=== PATIENT | female | born 1975 | race African-American/Black ===

== ENCOUNTER 2019-02-25 11:15 | Emergency (ER) | payer SELFPAY ==
--- OUTSIDE RECORDS SUMMARY | 2019-02-25 11:22 | XMS REPORT ---
:1975 [facility] Address [address] [place] [address] Dr. Contreras [address] [place] [id number] Care Team Providers Name Role Phone Unavailable Unavailable Unavailable Problems This patient has no known problems. Allergies, Adverse Reactions, Alerts This patient has no known allergies or adverse reactions. Medications This patient has no known medications.
--- OUTSIDE RECORDS SUMMARY | 2019-02-25 11:23 | XMS REPORT | Summary of Care ---
:1975 Author Organization [facility] Address [address] [place] [id number] Care Team Providers Name Role Phone Leeanne Rodriguez Primary Care Provider Reason for Referral (Routine) Status Reason Specialty Diagnoses / Referred By Referred To Procedures Contact Contact New Request PN-NEUROLOGY Diagnoses Seizures Roberts, Chilvana Procedures Discharge Follow-Up: Specialty Service PN-NEUROLOGY ; 2 Months MD Junaid [address] [place] [address] MRI/CAT Scan (GRACE) Status Reason Specialty Diagnoses / Referred By Referred To Procedures Contact Contact New Request Diagnostic Diagnoses Seizures Roberts, Chilvana Radiology Procedures MR BRAIN W WO SONIYA Quiroga MD [address] [place] [address] (Routine) Status Reason Specialty Diagnoses / Referred By Referred To Procedures Contact Contact New Request EEG Diagnoses Seizures Roberts, Chilvana V, Procedures Electroencephalogram (EEG) - Duration of test: 20-[address] [place] [phone] MRI/CAT Scan (GRACE) Status Reason Specialty Diagnoses / Referred By Referred To Procedures Contact Contact New Request Diagnostic Diagnoses Seizures Roberts, Chilvana Radiology Procedures MR BRAIN W WO CONTRAST MD Junaid [address] [place] [address] (Routine) Status Reason Specialty Diagnoses / Referred By Referred To Procedures Contact Contact New Request EEG Diagnoses Seizures Armando Monica V, Procedures Electroencephalogram (EEG) - Duration of test: 20-[address] [place] [phone] Reason for Visit Auth/Cert Status Reason Specialty Diagnoses / Procedures Referred By Contact Referred To Contact Surgery Diagnoses seizure Jessie 11[address] [place] [address] Encounter Details Date Type Department Care Team Description 02/06/2019 - Hospital Encounter Ortho/ Trauma (JESSIE Monica Roberts V, Seizures 02/07/2019 11A) [address] [address] [place], [place] [phone] Allergies Active Allergy Reactions Severity Noted Date Comments Shrimp Unknown - See comments 02/06/2019 documented as of this encounter (statuses as of 02/07/2019) Medications Medication Sig Dispensed Refills Start Date End Date Status losartan 100 mg tablet TK 1 T PO ONCE 1 11/18/2018 Active D. methylPREDNISolone Take 21 tablets 1 Each 0 11/21/2018 Active (MEDROL, ARIA,) 4 mg by mouth tabletsIndications: SEE-INSTRUCTIONS Right foot pain, Acute . follow package idiopathic gout of right directions foot levETIRAcetam 750 mg Take 1 tablet by 60 tablet 5 02/06/2019 Active tabletIndications: mouth 2 (two) Seizures times daily. foLIC acid 1 mg Take 1 tablet by 30 tablet 5 02/06/2019 Active tabletIndications: mouth daily. Seizures documented as of this encounter (statuses as of 02/07/2019) Active Problems Problem Noted Date Seizures 02/06/2019 Seizure 02/06/2019 Well woman exam 10/17/2018 Encounter for contraceptive management, unspecified type 10/17/2018 Elevated blood pressure reading without diagnosis of hypertension 10/17/2018 Breast lump 10/17/2018 Screening examination for STD (sexually transmitted disease) 03/04/2015 Class 1 obesity with body mass index (BMI) of 30.0 to 30.9 in adult, 2014 unspecified obesity type, unspecified whether serious comorbidity present Overview: ICD10 Diagnosis Term Carburizer Utility History of bilateral tubal ligation 03/04/2015 documented as of this encounter (statuses as of 02/07/2019) Resolved Problems Problem Noted Date Resolved Date General counseling and advice for contraceptive management 03/04/20152018 Overview: ICD10 Diagnosis Term Carburizer Utility Irregular menstrual cycle 03/04/2015 10/17/2018 Overweight 03/04/2015 10/17/2018 Overview: ICD10 Diagnosis Term Carburizer Utility Prehypertension 03/04/2015 10/17/2018 documented as of this encounter (statuses as of 02/07/2019) Social History Tobacco Use Types Packs/Day Years Used Date Never Smoker Smokeless Tobacco: Never Used Tobacco Cessation: Counseling Given: No Alcohol Use Drinks/Week oz/Week Comments No Sex Assigned at Date Recorded Not on file Job Start Date Occupation Industry Not on file Not on file Not on file Travel History Travel Start Travel End No recent travel history available. documented as of this encounter Last Filed Vital Signs Vital Sign Reading Time Taken Comments Blood Pressure 124/65 02/07/2019 11:27 AM CDT Pulse 88 02/07/2019 11:27 AM CDT Temperature 36.9 C (98.5 F) 02/07/2019 11:27 AM CDT Respiratory Rate 18 02/07/2019 11:27 AM CDT Oxygen Saturation 96% 02/07/2019 11:27 AM CDT Inhaled Oxygen Concentration - - Weight 79.8 kg (176 lb) 02/06/2019 4:36 AM CDT Height 160 cm (5' 2.99") 02/06/2019 4:36 AM CDT Body Mass Index 31.18 02/06/2019 4:36 AM CDT documented in this encounter Discharge Summaries Lizeth Arana MD - 02/07/2019 12:20 PM CDT GENERAL NEUROLOGY DISCHARGE SUMMARY Date of Service: 02/07/2019 12:19 ADMIT DATE: 02/07/2019 DISCHARGE DATE: 02/07/2019 12:19 ATTENDING MD: ARMANDO ESQUIVEL, [facility] RESIDENT MD: Sumit Stanley PCP: Leeanne Rodriguez CHIEF COMPLAINT Seizures FINAL DIAGNOSIS Seizures, GTCS, off AEDs Cocaine Abuse HOSPITAL COURSE Daniela Medellin is a 43 year old female right handed with Hx Of Seizures who presented to [facility] after an episode of seizure. Patient stated that the first seizure was 3 years ago. Had about 6-7 in one year, was on Dilantin. Later when she did not have any seizures, her doctor took her off seizure medication. Therefore patient has been off AED for the past 2 years and she did not have any episodes. Seizure with no Aura. A/w loss of consciousness & post ictal confusion. No triggering Factors. FHx with seizures in sisters. Denies febrile seizures, head trauma w/ LOC, or SASH FINISHER infections -none reported. H/o epilepsy in sister. Pt was admitted to the floor started on Keppra 750 BID. UDS positive for cocaine. EEG done was abnormal due to independent bitemporal slowing, suggestive of independent bitemporal dysfunction However no epileptiform discharges. MRI wwo contrast was completed. Pt was advised of taking Seizure precautions and was discharged on keppra 750 BID with a follow up to neurology clinics. PLAN / ITEMS FOR FOLLOW UP PROVIDER: 1. Evaluate for Seizures and Adjust AEDs accordingly 2. Check Keppra levels PHYSICAL EXAM ON DISCHARGE: Neurologic Exam Mental Status Oriented to person, place, and time. Speech: speech is normal Cranial Nerves Cranial nerves II through XII intact. Motor Exam Muscle bulk: normal Overall muscle tone: normal Strength Strength 5/5 throughout. Sensory Exam Light touch normal. Vibration normal. Proprioception normal. Gait, Coordination, and Reflexes Gait Gait: normal Coordination Romberg: negative Finger to nose coordination: normal Heel to chen coordination: normal Tremor Resting tremor: absent Intention tremor: absent Reflexes Reflexes 2+ except as noted. Right plantar: normal Left plantar: normal PROCEDURES: EEG PERTINENT LABORATORY/IMAGING FINDINGS: MRI WWO contrast completed DISCHARGE MEDICATIONS: Current Discharge Medication List START taking these medications Details foLIC acid (FOLATE) 1 mg Take 1 mg by mouth daily. Qty: 30 tablet, Refills: 5 Start date: 02/06/2019 Associated Diagnoses: Seizures levETIRAcetam (KEPPRA) 750 mg Take 750 mg by mouth 2 (two) times daily. Qty: 60 tablet, Refills: 5 Start date: 02/06/2019 Associated Diagnoses: Seizures CONTINUE these medications which have NOT CHANGED Details losartan 100 mg tablet TK 1 T PO ONCE D. Refills: 1 methylPREDNISolone (MEDROL DOSE-ARIA) 84 mg Take 84 mg by mouth SEE- INSTRUCTIONS. follow package directions Qty: 1 Each, Refills: 0 Associated Diagnoses: Right foot pain; Acute idiopathic gout of right foot DISCHARGE DISPOSITION: Activity: as tolerated Discharged :Discharged: Home Condition at discharge: Fair PT/OT Follow-Up: not needed FOLLOW-UP APPOINTMENTS: Follow up with [facility] Neurology Clinics in 2 months Discharge Orders Regular Diet; Texture: Regular. Texture Regular. Diabetic: No Discharge Condition - Discharge Condition: FAIR Discharge Activity Discharge Activity: As Tolerated Discharge Follow-Up: Specialty Service PN-NEUROLOGY ; 2 Months Specialty: PN-NEUROLOGY [19] Patient's Preferred Location: Unknown Discharge Disposition: Home, ([facility]HR) When (Patients with risk for unplanned readmission score over 16 or those noted as Hospital Dependent should follow up within 7 days with PCP or primary DX specialist): 2 Months Risk of Unplanned Readmission:( Score greater than 16 indicates high risk) 6 VTE Propylaxis- Was ordered during hospitalization Discharge Instructions Order Comments: - take Keppra 750 Twice daily - take folate once daily - follow up with neurology in 2 months - keep a Diary of any seizure like activity that you may experience and bring it [facility]. Associated attestation - Monica Roberts MD - 02/07/2019 12:26 PM CDTKeppra 750mg bid [place] laws Folic acid 4 mg daily Seizure precautions, SUDEP, [place] driving laws Avoid recreational drugs MOA and adverse reactions discussed Compliance addressed EMU outpatient I personally examined the patient on 02/07/[address] Arana's note . I actively participated in the decision-making process. Please see the resident's note for additional details. Monica Roberts MD documented in this encounter Progress Notes Dary Zavala LMSW - 02/06/2019 1:02 PM CDTCare Management Social Functional Assessment Patient Name: Daniela Medellin Age: [age] year old Sex: female Previous admit date: N/A Current diagnosis and co-morbidities: seizure Readmission Questions: Was patient discharged from any acute care hospital within the last 30 days: No Social Functional Assessment: Primary language spoken/preferred: [place] Mental Status: Alert & Oriented to Person,Place & Time Information given by: Self Patient's support system: Spouse Name and number of support system: Dell Howard- [phone] Primary Muck Operator: Self MPOA: No Living Arrangement: Home: single story Address of living arrangement : [address] [place] [address] Persons living in home: Self;Spouse;Child Names & numbers of persons living in home: -Dell and 3 kids Barriers to returning home: None Baseline functional status- ambulation: Independent Functional status-baseline personal care: Independent Baseline functional status- driving: Independent Baseline functional status- grocery shopping: Independent Functional status-baseline housekeeping: Independent Functional status-baseline meal prep: Independent Current functional status same as prior: Yes Do you have a PCP?: Yes Name of PCP: [facility] Lee[facility] Agency: No Provider Services: No DME Company: No Equipment: None Hemodialysis: No Community resources utilized: SSA/SSI/Medicaid Funding Resources: Self Pay(Pack Medicaid termed on 01/08/19. Patient is pending medicaid) Prescription coverage plan: Self Pay Pharmacy where meds are filled: Other Other pharmacy: [id number] [phone] (Phone) Anticipated services prior to disharge: Continue Medical Eval;EEG Expected mode of discharge transportation: Same as support system Additional info required for discharge planning: Pending medical evaluation Recommended discharge plan: Home. Per patient request patients motherMarsha, removed as a contact. Any issues or concerns with obtaining/affording your medications at home: no. Patient denies any issues affording or obtaining medications. Are you or your support system able to picker packer medications at discharge: yes. Describe: Patient or her spouse will picker packer. SFA Complete: Social Functional Assessment complete: Yes Alcohol Use Screening (AUDIT-C) How often do you have a drink containing alcohol?: Never SCORE: 0 Role of Care Management explained. Dary Zavala LMSW Health And Social Care Teacher Care Management-Cutter Wet Machine (Not for Patient use) Lizeth Pickering MD - 02/06/2019 6:49 AM CDT GENERAL NEUROLOGY PROGRESS NOTE DATE OF SERVICE: 02/06/19 8:00am Day of Hospitalization: 0 CHIEF COMPLAINT: Seizure 24-HOUR EVENTS: -admission to neuro floor -started on Keppra 750mg BID -EEG completed -MRI w/ & w/o contrast: Pending SUBJECTIVE: This morning patient reports poor sleep overnight due to pain. She reports knot on her head, back pain, and front leg pain that is 9/10, tender to touch, and not helped by ibuprofen. Attributes to fallin the bathroom w/ seizure. According to family she was not on ground long before she was found (1min) as they heard the thud. She is also endorsing weakness with standing and moving. Reports tolerating medications well. Pt says she has been holding in urine longer than usual so that she can wait for assistance to go the restroom, however denies dysuria. Pt would like help addressing pain and weakness. No other complaints this morning and no seizure spells overnight. OBJECTIVE: PHYSICAL EXAM Vitals: 02/06/19 1500 02/06/19 2003 02/06/19 2329 02/07/19 0831 BP: 123/75 132/64 119/61 121/66 Pulse: 93 76 72 69 Resp: 16 16 16 20 Temp: 36.6 C (97.9 F) 36.7 C (98.1 F) 36.4 C (97.6 F) 36.7 C ( 98.1 F) TempSrc: Oral Oral Oral Oral SpO2: 100% 100% 98% 96% Weight: Height: General: Alert and oriented x 4 (time, person, place and situation); no apparent distress. Mental Status: Consciousness, attention, concentration: normal, Stays focused and on task while being questioned. Speech/ Language: intact to comprehension, fluency, repetition and naming. Fund of knowledge: is congruent with level of education. Remote and recent memory: normal, can recall recent and distant memories Cranial Nerves: I. Not tested. II. PERRL. FOV full to confrontation. Discs visualized, no papilledema. III. IV., . Extraocular movements intact without nystagmus. V. Normal sensation in V1-3 distributions. VII. No facial droop noted. VIII. Hearing intact. IX., X. Palatal elevation and gag response present symmetrically. XI. Normal Strength of sternocleidomastoid and trapezius muscles bilaterally. XII. Tongue in midline. Motor: Tone: normal Bulk: normal STRENGTH Right Left Deltoid 5 5 Biceps 5- 5- Triceps 5- 5- Wrist extensors 5 5 Interossei 5 5 Hip flexors 5 5 Knee flexors (hamstring) 5 5 Knee extensors (quadriceps) 4+ 4+ Ankle dorsiflexors 5 5 Ankle plantar flexors 5 5 Tenderness during strength exam. DTR's: Right Left Bicep 2+ 2+ Triceps 2+ 2+ Brachioradialis 2+ 2+ Patella 2+ 2+ Achilles 2+ 2+ Pathologic reflexes and signs: Schroeder: absent Babinski: absent Jaw Jerk: absent Cerebellar: Nystagmus: neg, FTN: nl, HTS:nl, Tremors: neg Sensory: LT: intact, temperature: intact, PP: intact, proprioception: intact, Vibration: intact Gait: normal HEENT: pupils equal, round, reactive to light; extraocular movements intact; oropharynx clear; moistmucous membranes Lungs: clear to auscultation bilaterally Cardio: S1, S2 normal Extremities: no cyanosis, clubbing or edema Neck: supple, no carotid bruit, no JVD Abdomen: soft; non-tender; non-distended; normoactive bowel sounds heard MEDICATIONS Current Facility-Administered Medications Medication Dose Route Frequency Last Rate Last Dose KCL (KLOR-CON M20) tablet 20 mEq 20 mEq Oral DAILY 20 mEq at 02/07/19 0830 potassium chloride 20 mEq/100 mL (KCL) 20 mEq/100 mL RTU IVPB 20 mEq 20 mEq IV Piggyback ONCE acetaminophen (TYLENOL) tablet 650 mg 650 mg Oral Q6HPRN 650 mg at 1540 docusate (COLACE) capsule 100 mg 100 mg Oral QDAILYPRN 100 mg at 0831 heparin injection 5,000 Units 5,000 Units Subcutaneous Q12H 5,000 Units at 02/07/19 0830 ibuprofen (IBU) tablet 600 mg 600 mg Oral Q6HPRN 600 mg at 02/07/19 0830 levETIRAcetam (KEPPRA) tablet 750 mg 750 mg Oral BID 750 mg at 02/07/19 0830 pantoprazole (PROTONIX) EC tablet 40 mg 40 mg Oral DAILY 40 mg at 0830 LABS Recent Results (from the past 24 hour(s)) CBC WITH DIFFERENTIAL Collection Time: 02/06/19 9:08 AM Result Value Ref Range WBC 8.81 4.30 - 11.10 10*3/L RBC 3.87 (L) 3.93 - 5.25 10*6/L HGB 11.1 (L) 11.6 - 15.0 g/dL HCT 34.9 (L) 35.7 - 45.2 % MCV 90.2 80.6 - 95.5 fL MCH 28.7 25.9 - 32.8 pg MCHC 31.8 31.6 - 35.1 g/dL RDW-SD 42.2 39.0 - 49.9 fL RDW-CV 12.8 12.0 - 15.5 % PLT 203 166 - 358 10*3/L MPV 10.0 9.5 - 12.9 fL NRBC/100 WBC 0.0 0.0 - 10.0 /100 WBCs NRBC x10^3 <0.01 10*3/L GRAN MAT (NEUT) % 62.6 % IMM GRAN % 0.20 % LYMPH % 26.9 % MONO % 9.4 % EOS % 0.6 % BASO % 0.3 % GRAN MAT x10^3(ANC) 5.51 1.88 - 7.09 10*3/uL IMM GRAN x10^3 <0.03 0.00 - 0.06 10*3/uL LYMPH x10^3 2.37 1.32 - 3.29 10*3/uL MONO x10^3 0.83 0.33 - 0.92 10*3/uL EOS x10^3 0.05 0.03 - 0.39 10*3/uL BASO x10^3 0.03 0.01 - 0.07 10*3/uL Basic Metabolic Panel (Na, K, Cl, CO2, Glucose, BUN, Creatinine, Ca) Collection Time: 02/06/19 9:09 AM Result Value Ref Range NA 138 135 - 145 mmol/L K 3.2 (L) 3.5 - 5.0 mmol/L CL 107 98 - 108 mmol/L CO2 TOTAL 25 23 - 31 mmol/L AGAP 6 2 - 16 BUN 6 (L) 7 - 23 mg/dL GLUCOSE 79 70 - 110 mg/dL CREATININE 0.55 0.50 - 1.04 mg/dL CALCIUM 8.0 (L) 8.6 - 10.6 mg/dL eGFR Calculation (Non-) 121.2 mL/min/1.73m2 eGFR Calculation () 146.9 mL/min/1.73m2 Magnesium Serum Collection Time: 02/06/19 9:09 AM Result Value Ref Range MAGNESIUM 1.9 1.7 - 2.4 mg/dL Phosphorus Serum Collection Time: 02/06/19 9:09 AM Result Value Ref Range PHOSPHORUS 3.2 2.5 - 5.0 mg/dL Creatine Kinase (CK) Collection Time: 02/06/19 9:09 AM Result Value Ref Range CK 79 33 - 194 U/L Basic Metabolic Panel (Na, K, Cl, CO2, Glucose, BUN, Creatinine, Ca) Collection Time: 02/06/19 11:40 AM Result Value Ref Range NA 140 135 - 145 mmol/L K 3.2 (L) 3.5 - 5.0 mmol/L CL 109 (H) 98 - 108 mmol/L CO2 TOTAL 25 23 - 31 mmol/L AGAP 6 2 - 16 BUN 6 (L) 7 - 23 mg/dL GLUCOSE 79 70 - 110 mg/dL CREATININE 0.53 0.50 - 1.04 mg/dL CALCIUM 8.1 (L) 8.6 - 10.6 mg/dL eGFR Calculation (Non-) 126.5 mL/min/1.73m2 eGFR Calculation () 153.3 mL/min/1.73m2 Magnesium Serum Collection Time: 02/06/19 11:40 AM Result Value Ref Range MAGNESIUM 1.9 1.7 - 2.4 mg/dL Phosphorus Serum Collection Time: 02/06/19 11:40 AM Result Value Ref Range PHOSPHORUS 3.1 2.5 - 5.0 mg/dL Creatine Kinase (CK) Collection Time: 02/06/19 11:40 AM Result Value Ref Range CK 89 33 - 194 U/L Urinalysis Collection Time: 02/06/19 11:40 AM Result Value Ref Range APPEARANCE Hazy (A) Clear COLOR Yellow Yellow PH 6.0 4.8 - 8.0 SP GRAVITY 1.011 1.003 - 1.030 GLU U QUAL Normal Normal BLOOD 2+ (A) Negative KETONES 5 mg/dL (A) Negative PROTEIN Negative Negative UROBILIN Normal Normal BILIRUBIN Negative Negative NITRITE Negative Negative LEUK EARL 25/uL (A) Negative RBC/HPF 10 (H) 0 - 3 HPF WBC/HPF 5 0 - 5 HPF BACTERIA Few (A) Negative MUCOUS Slight (A) Negative LPF SQ EPITH <1 <=2 HPF Urine Drug (Imuunoassay) - Comprehensive Drug Screen ([place] Only) Collection Time: 02/06/19 11:41 AM Result Value Ref Range AMPHET Negative Negative DISHA U Negative Negative BENZO U Negative Negative Cocaine Metabolite Presumptive Positive (A) Negative METHADONE Negative Negative OPIATES Negative Negative PCP Negative Negative THC Negative Negative RADIOLOGY 02/06/19 EEG: This EEG is abnormal due to independent bitemporal slowing, suggestive of independent bitemporal dysfunction. No electrographic seizures or epileptiform abnormalities are seen. The absence of epileptiform abnormalities in one EEG does not necessarily rule out a diagnosis of epilepsy or the potential for epileptic seizures, however. The diagnostic sensitivity can be enhanced by a repeat study, which would be appropriate if clinically indicated. MRI 02/06/2019 Within confines of motion degradation, no acute intracranial abnormality. No definite structural abnormality identified to account for patient's seizure.The cerebellar tonsils protrude 5 mm below the level of foramen magnum, clinically correlate ASSESSMENT AND PLAN Daniela Medellin is a 43 year old female with prior hx of seizures (off maintenance medication) admitted to neurology service after witnessed tonic clonic seizure in home and fall on bathroom floor: 1. Seizures 2. Proximal LE muscle weakness 3. Generalized pain 4. Hypokalemia 5. Drug abuse (positive UDS cocaine) PLAN: -c/w depakote 750mg BID -talk to patient about seizure precautions -EEG w/o epileptiform waves at this time, shows bitemporal slowing -pending MRI read -replenish K+ po, may help with muscular symptoms as well -encourage activity as tolerated -c/w Tylenol and ibuprofen for pain associated with fall -start folic acid 1mg po qd - GI Prophylaxis: pantoprazole - DVT Prophylaxis: heparin - Code status: full The case was discussed with Dr. Glenn Roberts Neurology Faculty. Lizeht Arana MD PGY2 Neurology [phone] HOSPITAL COURSE: Daniela Medellin is a 43 year old femalerighthanded with Hx Of Seizures who presented to [facility] after an episode of seizure. Patient stated that the first seizure was3 years ago. Had about 6-7 in oneyear, was on Dilantin. Later when she did not have any seizures, her doctor took her off seizure medication. The patient had been off AED for the past 2 years and she did not have any episodes.Seizure with no Aura. A/w loss of consciousness & post ictal confusion. No triggering Factors. FHx with seizures in sisters and in her daughter. Denies febrile seizures, head trauma w/ LOC, or SASH FINISHER infections-none reported. Patient was driving on a regular basis before seizure episode. Pt was admitted to the floor started on Keppra 750 BID. EEG done was abnormal due to independent bitemporal slowing, suggestive of independent bitemporal dysfunction , however no epileptiform discharges. MRI w/o contrast was completed. Associated attestation - Monica Roberts MD - 02/07/2019 12:29 PM CDTMRI Brain- pending I personally examined the patient on 02/06/[address] Arana's note . I actively participated in the decision-making process. Please see the resident's note for additional details. Monica Roberts MD documented in this encounter Plan of Treatment Name Type Priority Associated Diagnoses Date/Time [facility] ONLY - URINE DRUG LAB Routine 02/06/2019 11:41 AM CDT (LCMSMS) - KAEL PANEL Name Type Priority Associated Diagnoses Order Schedule Urinalysis LAB Routine ONCE for 1 Occurrences starting 02/06/2019 until 02/06/2019 [facility] ONLY - URINE DRUG LAB Routine ONCE for 1 Occurrences (LCMSMS) - KAEL PANEL starting 02/06/2019 until 02/06/2019, 1 completed KEPPRA (LEVETIRACETAM) LAB Routine ONCE for 1 Occurrences starting 02/07/2019 until 02/07/2019 Health Maintenance Due Date Last Done Comments DTaP,Tdap,and Td Vaccines 02/25/1995 (1 - Tdap) PAP SMEAR 09/08/2014 09/08/2009, 08/17/2008, 09/22/2004, Additional history exists INFLUENZA VACCINE (#1) 2019 MAMMOGRAM 10/25/2019 10/24/2018 PNEUMOCOCCAL 0-64 YEARS Aged Out No longer eligible COMBINED SERIES based on patient's age to complete this topic documented as of this encounter Procedures Procedure Name Priority Date/Time Associated Comments Diagnosis MR BRAIN W WO CONTRAST GRACE 02/07/2019 2:07 Seizures Results for this AM CDT procedure are in the results section. [facility]AL[facility]/CLC ONLY - URINE DRUG Routine 02/06/2019 11:41 Results for this (IMMUNOASSAY) - AM CDT procedure are in COMPREHENSIVE DRUG SCREEN the results section. URINALYSIS Routine 02/06/2019 11:40 Results for this AM CDT procedure are in the results section. BASIC METABOLIC PANEL (NA, Routine 02/06/2019 11:40 Results for this K, CL, CO2, GLUCOSE, BUN, AM CDT procedure are in CREATININE, CA) the results section. MAGNESIUM Routine 02/06/2019 11:40 Results for this AM CDT procedure are in the results section. CREATINE KINASE Routine 02/06/2019 11:40 Results for this AM CDT procedure are in the results section. PHOSPHORUS Routine 02/06/2019 11:40 Results for this AM CDT procedure are in the results section. BASIC METABOLIC PANEL (NA, Routine 02/06/2019 9:09 Results for this K, CL, CO2, GLUCOSE, BUN, AM CDT procedure are in CREATININE, CA) the results section. MAGNESIUM Routine 02/06/2019 9:09 Results for this AM CDT procedure are in the results section. CREATINE KINASE Routine 02/06/2019 9:09 Results for this AM CDT procedure are in the results section. PHOSPHORUS Routine 02/06/2019 9:09 Results for this AM CDT procedure are in the results section. CBC WITH DIFFERENTIAL Routine 02/06/2019 9:08 Results for this AM CDT procedure are in the results section. CBC WITH DIFF Routine 02/06/2019 9:08 Results for this AM CDT procedure are in the results section. ELECTROENCEPHALOGRAM Routine 02/06/2019 Seizures documented in this encounter Results MR BRAIN W WO CONTRAST (02/07/2019 2:07 AM CDT) Specimen Impressions Performed At Impression: PACS/VR/DOSE Within confines of motion degradation, no acute intracranial abnormality. No definite structural abnormality identified to account for patient's seizure. The cerebellar tonsils protrude 5 mm below the level of foramen magnum, clinically correlate. Narrative Performed At * * * * * * * * ORIGINAL REPORT * * * * * * * * PACS/VR/DOSE EXAMINATION: MR BRAIN W WO CONTRAST HISTORY: Seizure, new, abn neuro exam, nontraumatic COMPARISON: None. Technique: Seizure protocol MRI of the brain was performed prior to and after intravenous contrast administration. Quantitative volumetry of the brain was performed using NeuroQuant ([facility], [place], [place]) software package. The NeuroQuant analysis was based on a sagittal 3D volumetric MPRAGE pulse sequence. Sequence-checking was performed to ensure appropriate high-resolution and contrast image parameters. Correction for field/gradient inhomogeneities, removal of the overlying calvaria, alignment to the probabilistic atlas of stereotypical anatomy and segmented volumetry of predetermined anatomic areas derived from multiple subjects of multiple age groups was performed. Two automated reports were generated. Contrast: 16 mL of Dotarem intravenous. Findings: Images degraded by motion artifacts. There is normal appearance of the brain parenchyma. There is no abnormal enhancement. No intracranial hemorrhage or mass. The ventricles, sulci and cisterns are normal in size and symmetric. No acute infarct. Partially empty sella. The inferior aspect of the cerebellar tonsils protrude 5 mm below the level of the foramen magnum. The Hippocampal volume report demonstrates: Left Hippocampal volume: 3.23 Right Hippocampal volume: 3.43 Asymmetry Index: -6.0 The values listed above were with 2 SD of the mean. General morphometry report was also reviewed and no gross outliers were identified. No definite signal alteration or volume loss noted of the hippocampi. The calvarium is normal. The orbits are unremarkable. The paranasal sinuses are essentially clear. Procedure Note [facility], Radiant Results Inft User - 02/07/2019 7:53 AM CDT * * * * * * * * ORIGINAL REPORT * * * * * * * * EXAMINATION: MR BRAIN W WO CONTRAST HISTORY: Seizure, new, abn neuro exam, nontraumatic COMPARISON: None. Technique: Seizure protocol MRI of the brain was performed prior to and after intravenous contrast administration. Quantitative volumetry of the brain was performed using NeuroQuant ([facility], [place], [place]) software package. The NeuroQuant analysis was based on a sagittal 3D volumetric MPRAGE pulse sequence. Sequence-checking was performed to ensure appropriate high-resolution and contrast image parameters. Correction for field/gradient inhomogeneities, removal of the overlying calvaria, alignment to the probabilistic atlas of stereotypical anatomy and segmented volumetry of predetermined anatomic areas derived from multiple subjects of multiple age groups was performed. Two automated reports were generated. Contrast: 16 mL of Dotarem intravenous. Findings: Images degraded by motion artifacts. There is normal appearance of the brain parenchyma. There is no abnormal enhancement. No intracranial hemorrhage or mass. The ventricles, sulci and cisterns are normal in size and symmetric. No acute infarct. Partially empty sella. The inferior aspect of the cerebellar tonsils protrude 5 mm below the level of the foramen magnum. The Hippocampal volume report demonstrates: Left Hippocampal volume: 3.23 Right Hippocampal volume: 3.43 Asymmetry Index: -6.0 The values listed above were with 2 SD of the mean. General morphometry report was also reviewed and no gross outliers were identified. No definite signal alteration or volume loss noted of the hippocampi. The calvarium is normal. The orbits are unremarkable. The paranasal sinuses are essentially clear. IMPRESSION Impression: Within confines of motion degradation, no acute intracranial abnormality. No definite structural abnormality identified to account for patient's seizure. The cerebellar tonsils protrude 5 mm below the level of foramen magnum, clinically correlate. Performing Organization Address City/State/Zipcode Phone Number PACS/VR/DOSE Urine Drug (Imuunoassay) - Comprehensive Drug Screen ([place] Only) (2018 11:41 AM CDT) AMPHET Negative Negative [facility] DISHA U Negative Negative [facility] BENZO U Negative Negative [facility] Cocaine Metabolite Presumptive Negative [facility] Positive (A) SERVICES METHADONE Negative Negative [facility] OPIATES Negative Negative [facility] PCP Negative Negative [facility] THC Negative Negative [facility] Specimen Urine - URINE, CLEAN CATCH Narrative Performed At Urine Drug Cutoff Ranges [facility] Cocaine: 150 ng/mL Benzodiazepines: 200 ng/mL Methadone: 300 ng/mL Amphetamine: 1,000 ng/mL Opiates: 300 ng/mL Cannabinoids:50 ng/mL Phencyclidine: 25 ng/mL Barbiturates:200 ng/mL The results are to be used only for medical (i.e., treatment) purposes. Unconfirmed screening results must not be used for non-medical purposes (e.g., employment testing, legal testing). Performing Organization Address [facility] Phone Number [facility] CLIA: [id number], [address] [place] [address] [id number] [facility] Urinalysis (02/06/2019 11:40 AM CDT) APPEARANCE Hazy (A) Clear [facility] COLOR Yellow Yellow [facility] PH 6.0 4.8 - 8.0 [facility] SP GRAVITY 1.011 1.003 - 1.030 [facility] GLU U QUAL Normal Normal [facility] BLOOD 2+ (A) Negative [facility] KETONES 5 mg/dL (A) Negative [facility] PROTEIN Negative Negative [facility] UROBILIN Normal Normal [facility] BILIRUBIN Negative Negative [facility] NITRITE Negative Negative [facility] LEUK EARL 25/uL (A) Negative [facility] RBC/HPF 10 (H) 0 - 3 HPF [facility] WBC/HPF 5 0 - 5 HPF [facility] BACTERIA Few (A) Negative [facility] MUCOUS Slight (A) Negative LPF [facility] SQ EPITH <1 <=2 HPF [facility] Specimen Urine - URINE, CLEAN CATCH Performing Organization Address [facility] Phone Number [facility] CLIA: [id number], [address] [place] [id number] [phone] [facility] Creatine Kinase (CK) (02/06/2019 11:40 AM CDT) CK 89 33 - 194 U/L [facility] Specimen Blood - ARM, LEFT Performing Organization Address [facility] Phone Number [facility] CLIA: [id number], [address] [place] [address] [phone] [facility] Phosphorus Serum (02/06/2019 11:40 AM CDT) PHOSPHORUS 3.1 2.5 - 5.0 mg/dL [facility] Specimen Blood - ARM, LEFT Performing Organization Address [facility] Phone Number [facility] CLIA: [id number], [address] [place], [place] [address] [facility] Magnesium Serum (02/06/2019 11:40 AM CDT) MAGNESIUM 1.9 1.7 - 2.4 mg/dL [facility] Specimen Blood - ARM, LEFT Performing Organization Address City/[facility]/Zipcode Phone Number [facility] CLIA: [id number], [address] [place] [address] [phone] [facility] Basic Metabolic Panel (Na, K, Cl, CO2, Glucose, BUN, Creatinine, Ca) (2018 11:40 AM CDT) NA 140 135 - 145 [facility] mmol/L SERVICES K 3.2 (L) 3.5 - 5.0 [facility] mmol/L SERVICES CL 109 (H) 98 - 108 mmol/L [facility] CO2 TOTAL 25 23 - 31 mmol/L [facility] AGAP 6 2 - 16 [facility] BUN 6 (L) 7 - 23 mg/dL [facility] GLUCOSE 79 70 - 110 mg/dL [facility] CREATININE 0.53 0.50 - 1.04 [facility] mg/dL SERVICES CALCIUM 8.1 (L) 8.6 - 10.6 [facility] mg/dL SERVICES eGFR Calculation 126.5 mL/min/1.73m2 [facility] (Non- SERVICES [place]) eGFR Calculation 153.3 mL/min/1.73m2 [facility] () SERVICES Specimen Blood - ARM, LEFT Narrative Performed At Association of Glomerular Filtration Rate (GFR) and Staging [facility] of Kidney Disease* + + + + | GFR (mL/min/1.73 m2)| With Kidney Damage|Without Kidney Damage + + + + |>90|Stage one| Normal + + + + |60-89|Stage two| Decreased GFR + + + + |30-59|Stage three| Stage three + + + + |15-29|Stage four | Stage four + + + + |<15 (or dialysis)|Stage five | Stage five + + + + *Each stage assumes the associated GFR level has been in effect for at least three months.Stages 1 to 5, with or without kidney disease, indicate chronic kidney disease. Notes: Determination of stages one and two (with eGFR >59mL/min/1.73 m2) requires estimation of kidney damage for at least three months as defined by structural or functional abnormalities of the kidney, manifested by either: Pathological abnormalities or Markers of kidney damage (including abnormalities in the composition of the blood or urine or abnormalities in imaging tests). Performing Organization Address City/[facility] Phone Number [facility] CLIA: [id number], [address] [place] [address] [facility] Creatine Kinase (CK) (02/06/2019 9:09 AM CDT) CK 79 33 - 194 U/L [facility] Specimen Blood - ARM, LEFT Performing Organization Address [facility] Phone Number [facility] CLIA: [id number], [address] [place] [address] [facility] Phosphorus Serum (02/06/2019 9:09 AM CDT) PHOSPHORUS 3.2 2.5 - 5.0 mg/dL [facility] Specimen Blood - ARM, LEFT Performing Organization Address [facility] Phone Number [facility] CLIA: [id number], [address] [place] [address] [facility] Magnesium Serum (02/06/2019 9:09 AM CDT) MAGNESIUM 1.9 1.7 - 2.4 mg/dL [facility] Specimen Blood - ARM, LEFT Performing Organization Address [facility] Phone Number [facility] CLIA: [id number], [address] [place] [address] [facility] Basic Metabolic Panel (Na, K, Cl, CO2, Glucose, BUN, Creatinine, Ca) (2018 9:09 AM CDT) NA 138 135 - 145 [facility] mmol/L SERVICES K 3.2 (L) 3.5 - 5.0 [facility] mmol/L SERVICES CL 107 98 - 108 mmol/L [facility] CO2 TOTAL 25 23 - 31 mmol/L [facility] AGAP 6 2 - 16 [facility] BUN 6 (L) 7 - 23 mg/dL [facility] GLUCOSE 79 70 - 110 mg/dL [facility] CREATININE 0.55 0.50 - 1.04 [facility] mg/dL SERVICES CALCIUM 8.0 (L) 8.6 - 10.6 [facility] mg/dL SERVICES eGFR Calculation 121.2 mL/min/1.73m2 [facility] (Non- SERVICES [place]) eGFR Calculation 146.9 mL/min/1.73m2 [facility] () SERVICES Specimen Blood - ARM, LEFT Narrative Performed At Association of Glomerular Filtration Rate (GFR) and Staging [facility] of Kidney Disease* + + + + | GFR (mL/min/1.73 m2)| With Kidney Damage|Without Kidney Damage + + + + |>90|Stage one| Normal + + + + |60-89|Stage two| Decreased GFR + + + + |30-59|Stage three| Stage three + + + + |15-29|Stage four | Stage four + + + + |<15 (or dialysis)|Stage five | Stage five + + + + *Each stage assumes the associated GFR level has been in effect for at least three months.Stages 1 to 5, with or without kidney disease, indicate chronic kidney disease. Notes: Determination of stages one and two (with eGFR >59mL/min/1.73 m2) requires estimation of kidney damage for at least three months as defined by structural or functional abnormalities of the kidney, manifested by either: Pathological abnormalities or Markers of kidney damage (including abnormalities in the composition of the blood or urine or abnormalities in imaging tests). Performing Organization Address City/State/Zipcode Phone Number [facility] CLIA: [id number], [address] [place] [address] [facility] CBC WITH DIFFERENTIAL (02/06/2019 9:08 AM CDT) WBC 8.81 4.30 - 11.10 [facility] 10*3/L SERVICES RBC 3.87 (L) 3.93 - 5.25 [facility] 10*6/L SERVICES HGB 11.1 (L) 11.6 - 15.0 [facility] g/dL SERVICES HCT 34.9 (L) 35.7 - 45.2 % [facility] MCV 90.2 80.6 - 95.5 fL [facility] MCH 28.7 25.9 - 32.8 pg [facility] MCHC 31.8 31.6 - 35.1 [facility] g/dL SERVICES RDW-SD 42.2 39.0 - 49.9 fL [facility] SERVICES RDW-CV 12.8 12.0 - 15.5 % [facility] PLT 203 166 - 358 [facility] 10*3/L SERVICES MPV 10.0 9.5 - 12.9 fL [facility] SERVICES NRBC/100 WBC 0.0 0.0 - 10.0 /100 [facility] WBCs SERVICES NRBC x10^3 <0.01 10*3/L [facility] SERVICES GRAN MAT (NEUT) % 62.6 % [facility] IMM GRAN % 0.20 % [facility] LYMPH % 26.9 % [facility] MONO % 9.4 % [facility] EOS % 0.6 % [facility] BASO % 0.3 % [facility] GRAN MAT x10^3(ANC) 5.51 1.88 - 7.09 [facility] 10*3/uL SERVICES IMM GRAN x10^3 <0.03 0.00 - 0.06 [facility] 10*3/uL SERVICES LYMPH x10^3 2.37 1.32 - 3.29 [facility] 10*3/uL SERVICES MONO x10^3 0.83 0.33 - 0.92 [facility] 10*3/uL SERVICES EOS x10^3 0.05 0.03 - 0.39 [facility] 10*3/uL SERVICES BASO x10^3 0.03 0.01 - 0.07 [facility] 10*3/uL SERVICES Specimen Blood - ARM, LEFT Performing Organization Address City/State/Zipcode Phone Number [facility] CLIA: [id number], [address] [place] [address] [facility] Electroencephalogram (EEG) - Duration of test: 20-60 mins (02/06/2019) Narrative Performed At Date and Time of Procedure: 02/06/2019, 9:27:48-9:51:43 REPORT TECHNICAL SUMMARY: The EEG was recorded digitally. Electrodes were applied using the International 10/20 System of electrode placement. Eye movements, respiratory excursions and rhythm strip ECG were monitored on separate channels of the ongoing EEG recording. The occipital dominant rhythm consists of moderate amplitude 9-10 Hz activity. More anteriorly, similar as well as faster frequencies are present, including low amplitude 18-22 Hz activities in the anterior leads. There is independent bitemporal slowing in the 4-7 Hz range intermittently. Drowsiness and sleep do not reveal any abnormalities. Photic stimulation does not elicit any abnormalities. Hyperventilation is not employed as activation technique. No electrographic seizures or epileptiform abnormalities are seen. IMPRESSION: This EEG is abnormal due to independent bitemporal slowing, suggestive of independent bitemporal dysfunction. No electrographic seizures or epileptiform abnormalities are seen. The absence of epileptiform abnormalities in one EEG does not necessarily rule out a diagnosis of epilepsy or the potential for epileptic seizures, however. The diagnostic sensitivity can be enhanced by a repeat study, which would be appropriate if clinically indicated. SOCORRO SAHU MD Date of interpretation: 02/06/2019 documented in this encounter Visit Diagnoses Diagnosis Seizures - Primary Other convulsions documented in this encounter Administered Medications Medication Order MAR Action Action Date Dose Rate Site acetaminophen (TYLENOL) tablet Given 02/06/2019 3:40 PM CDT 650 mg 650 mg 650 mg, Oral, Q6HPRN, Starting Sun02/06/19 at 0453, Until Discontinued, Routine, Pain (scale 4-6), Temp > 38.5 C Given 02/06/2019 9:04 AM CDT 650 mg docusate (COLACE) capsule 100 mg Given 02/07/2019 8:31 AM CDT 100 mg 100 mg, Oral, QDAILYPRN, Starting Sun02/06/19 at 0453, Until Discontinued, Routine, Constipation heparin injection 5,000 Units Given 02/07/2019 8:30 AM CDT 5,000 Units Abdomen-SC 5,000 Units, Subcutaneous, Q12H, First dose on Sun02/06/19 at 0800, Until Discontinued, Routine Given 02/06/2019 8:06 PM CDT 5,000 Units Abdomen Given 02/06/2019 9:05 AM CDT 5,000 Units Abdomen-SC ibuprofen (IBU) tablet 600 mg Given 02/07/2019 8:30 AM CDT 600 mg 600 mg, Oral, Q6HPRN, Starting Sun02/06/19 at 0852, Until Discontinued, Routine, Pain scale - 7-10 Given 02/07/2019 2:30 AM CDT 600 mg Given 02/06/2019 8:05 PM CDT 600 mg KCL (KLOR-CON M20) tablet 20 mEq Given 02/07/2019 8:30 AM CDT 20 mEq 20 mEq, Oral, DAILY, First dose on Sun02/07/19 at 0900, Until Discontinued, Routine levETIRAcetam (KEPPRA) tablet 750 mg Given 02/07/2019 8:30 AM CDT 750 mg 750 mg, Oral, BID, First dose on Sun02/06/19 at 0930, Until Discontinued, Routine Given 02/06/2019 8:05 PM CDT 750 mg Given 02/06/2019 11:32 AM CDT 750 mg pantoprazole (PROTONIX) EC tablet 40 mg Given 02/07/2019 8:30 AM CDT 40 mg 40 mg, Oral, DAILY, First dose on Sun02/06/19 at 0900, Until Discontinued, Routine Given 02/06/2019 9:04 AM CDT 40 mg Medication Order MAR Action Action Date Dose Rate Site gadoterate meglumine (DOTAREM-20 Given 02/07/2019 2:00 AM CDT 16 mL mL) injection 15.96 mL 15.96 mL (0.2 mL/kg 79.8 kg), Intravenous, ONCE, 1 dose, Sun02/07/19 at 0200, Routine documented in this encounter Insurance Payer Benefit Plan / Subscriber ID Effective Phone Address Type Group Dates MEDICAID MEDICAID PENDING 2019-[address] [place]ending [place] [address] documented as of this encounter Advance Directives Name Relationship Healthcare Agent Relationship Communication Dell Howard Other Second alternate healthcare agent
--- OUTSIDE RECORDS SUMMARY | 2019-02-25 11:23 | XMS REPORT | Summary of Care ---
:[address] [facility] - Health Address [address] [place] [address] Care Team Providers Name Role Phone Joanne Rodrigueznewton GUZMAN Primary Care Provider Encounter Details Date Type Department Care Team Description 02/20/[address] [facility] Doctor Unassigned, No [address] [facility] Name [place] [id number] [address] [place] [address] Allergies Active Allergy Reactions Severity Noted Date Comments Shrimp Unknown - See comments 02/06/2019 documented as of this encounter (statuses as of 02/20/2019) Medications Medication Sig Dispensed Refills Start Date [...] as of this encounter (statuses as of 02/20/2019) Active Problems Problem Noted Date Seizures 02/06/2019 [...] serious comorbidity present Overview: ICD10 Diagnosis Term Emergency Room Nurse Utility History of bilateral tubal ligation 03/04/2015 documented as of this encounter (statuses as of 02/20/2019) Resolved Problems Problem Noted Date Resolved Date General counseling and advice for contraceptive management 03/04/20152018 Overview: ICD10 Diagnosis Term Emergency Room Nurse Utility Irregular menstrual cycle 03/04/2015 10/17/2018 Overweight 03/04/2015 10/17/2018 Overview: ICD10 Diagnosis Term Emergency Room Nurse Utility Prehypertension 03/04/2015 10/17/2018 documented as of this encounter (statuses as of 02/20/2019) Social History Tobacco Use Types Packs/Day Years Used Date Never Smoker Smokeless Tobacco: Never Used Alcohol Use Drinks/Week oz/Week Comments No Sex Assigned at Date Recorded Not on file Job Start Date Occupation Industry Not on file Not on file Not on file Travel History Travel Start Travel End No recent travel history available. documented as of this encounter Last Filed Vital Signs Not on filedocumented in this encounter Plan of Treatment Health Maintenance Due Date Last Done Comments DTaP,Tdap,and Td Vaccines 02/25/1995 (1 - Tdap) PAP SMEAR 09/08/2014 09/08/2009, 08/17/2008, 09/22/2004, Additional history exists INFLUENZA VACCINE (#1) 2019 MAMMOGRAM 10/25/2019 10/24/2018 PNEUMOCOCCAL 0-64 YEARS Aged Out No longer eligible COMBINED SERIES based on patient's age to complete this topic documented as of this encounter Procedures Procedure Name Priority Date/Time Associated Diagnosis Comments EXTERNAL PROVIDER Routine 02/20/2019 12:01 AM CDT RECORDS documented in this encounter Results Not on filedocumented in this encounter Insurance Payer Benefit Plan / Subscriber ID Effective Dates Phone Address Type Group TMHP MEDICAID OF xxxxxxxxx 2019-Present [phone] [place] [address] [place] [address] documented as of this encounter Advance Directives Name Relationship Healthcare Agent Relationship Communication Dell Howard Other Second alternate healthcare agent
--- NOTE | 2019-02-25 13:09 | EDPHYS ---
Physician Documentation [facility] Name: Daniela Medellin Age: 44 yrs Sex: Female : 1975 Arrival Date: 02/25/2019 Time: 11:18 Bed 20 Private MD: Unknown, Unknown ED Physician Bairon Albert HPI: 02/25 13:00 This 44 yrs old Black Female presents to ER via Ambulatory with complaints of Numbness kristen Of Hand. 13:00 The patient or guardian reports decreased range of motion, pain. The complaints affect kristen the DIP of left little finger, PIP of left little finger, MCP of left little finger, DIP of left ring finger, PIP of left ring finger and MCP of left ring finger. Context: The problem was sustained at an unknown location. Modifying factors: The symptoms are alleviated by holding still, the symptoms are aggravated by movement. Associated signs and symptoms: The patient has no apparent associated signs or symptoms. Severity of symptoms: At their worst the symptoms were mild. The patient has not experienced similar symptoms in the past. EARLY CHILDHOOD: 11:22 LMP N/A - Depo-provera hb Historical: - Allergies: 11:22 No Known Allergies; hb - Home Meds: 11:22 Keppra Oral [Active]; amlodipine oral [Active]; Folic Acid Oral [Active]; hb - PMHx: 11:22 Seizures; Hypertension; hb - PSHx: 11:22 Appendectomy; hb - Immunization history:: Adult Immunizations up to date. - Social history:: Smoking status: Patient/guardian denies using tobacco. - Ebola Screening: : No symptoms or risks identified at this time. - Family history:: not pertinent. ROS: 13:00 Constitutional: Negative for fever, chills, and weight loss, Eyes: Negative for injury, kristen pain, redness, and discharge, ENT: Negative for injury, pain, and discharge, Neck: Negative for injury, pain, and swelling, Cardiovascular: Negative for chest pain, palpitations, and edema, Respiratory: Negative for shortness of breath, cough, wheezing, and pleuritic chest pain, Abdomen/GI: Negative for abdominal pain, nausea, vomiting, diarrhea, and constipation, Back: Negative for injury and pain, : Negative for injury, bleeding, discharge, and swelling, Skin: Negative for injury, rash, and discoloration, Neuro: Negative for headache, weakness, numbness, tingling, and seizure, Psych: Negative for depression, anxiety, suicide ideation, homicidal ideation, and hallucinations, Allergy/Immunology: Negative for hives, rash, and allergies, Endocrine: Negative for neck swelling, polydipsia, polyuria, polyphagia, and marked weight changes, Hematologic/Lymphatic: Negative for swollen nodes, abnormal bleeding, and unusual bruising. 13:00 MS/extremity: Positive for Exam: 13:00 Constitutional: This is a well developed, well nourished patient who is awake, alert, kristen and in no acute distress. Head/Face: Normocephalic, atraumatic. Eyes: Pupils equal round and reactive to light, extra-ocular motions intact. Lids and lashes normal. Conjunctiva and sclera are non-icteric and not injected. Cornea within normal limits. Periorbital areas with no swelling, redness, or edema. ENT: Nares patent. No nasal discharge, no septal abnormalities noted. Tympanic membranes are normal and external auditory canals are clear. Oropharynx with no redness, swelling, or masses, exudates, or evidence of obstruction, uvula midline. Mucous membranes moist. Neck: Trachea midline, no thyromegaly or masses palpated, and no cervical lymphadenopathy. Supple, full range of motion without nuchal rigidity, or vertebral point tenderness. No Meningismus. Chest/axilla: Normal chest wall appearance and motion. Nontender with no deformity. No lesions are appreciated. Cardiovascular: Regular rate and rhythm with a normal S1 and S2. No gallops, murmurs, or rubs. Normal PMI, no JVD. No pulse deficits. Respiratory: Lungs have equal breath sounds bilaterally, clear to auscultation and percussion. No rales, rhonchi or wheezes noted. No increased work of breathing, no retractions or nasal flaring. Abdomen/GI: Soft, non-tender, with normal bowel sounds. No distension or tympany. No guarding or rebound. No evidence of tenderness throughout. Back: No spinal tenderness. No costovertebral tenderness. Full range of motion. Skin: Warm, dry with normal turgor. Normal color with no rashes, no lesions, and no evidence of cellulitis. Neuro: Awake and alert, GCS 15, oriented to person, place, time, and situation. Cranial nerves II-XII grossly intact. Motor strength 5/5 in all extremities. Sensory grossly intact. Cerebellar exam normal. Normal gait. Psych: Awake, alert, with orientation to person, place and time. Behavior, mood, and affect are within normal limits. 13:00 Musculoskeletal/extremity: Extremities: decreased ROM, pain, ROM: full active range of motion, full passive range of motion, Pulses: are normal with no appreciated deficits, Compartment Syndrome exam of affected extremity: is normal. DVT Exam: No signs of deep vein thrombosis. no swelling, no tenderness, negative Homans' sign noted on exam, no appreciated bluish discoloration, no erythema, no increased warmth, pain. Vital Signs: 11:22 BP 150 / 95; Pulse 71; Resp 16; Temp 97.7; Pulse Ox 100% on R/A; Weight 79.38 kg; bp Height 5 ft. 3 in. (160.02 cm); Pain 10/10; 13:30 BP 147 / 89; Pulse 77; Resp 17; Temp 97.7; Pulse Ox 100% ; bp 11:22 Body Mass Index 31.00 (79.38 kg, 160.02 cm) bp MDM: 11:33 Patient medically screened. [facility] 02/25 13:06 Order name: Sling; Complete Time: 13:30 [facility] Administered Medications: 13:15 Drug: predniSONE 40 mg Route: PO; bp 13:30 Follow up: Response: No adverse reaction bp Disposition: 02/25/19 13:08 Discharged to Home. Impression: Radiculopathy. - Condition is Stable. - Discharge Instructions: Radicular Pain. - Prescriptions for gabapentin 100 mg Oral capsule - take 3 capsule by ORAL route 3 times per day; 90 capsule. Tylenol- Codeine #3 300-30 mg Oral Tablet - take 2 tablets by ORAL route every 6 hours As needed; 24 tablet. Medrol (Iraj) 4 mg Oral Tablets, Dose Pack - take 1 tablet by ORAL route as directed - follow package instructions; 1 packet. Motrin IB 200 mg Oral Tablet - take 2 tablet by ORAL route every 6 hours As needed as needed with food; 30 tablet. - Work release form, Medication Reconciliation Form, Thank You Letter, Antibiotic Education, Prescription Opioid Use form. - Follow up: Private Physician; When: 2 - 3 days; Reason: Recheck today's complaints, Continuance of care, Re-evaluation by your physician. Follow up: Brian Pappas MD; When: 2 - 3 days; Reason: Recheck today's complaints, Re-evaluation by your physician. - Problem is new. - Symptoms have improved. Signatures: Bairon Albert MD MD cha Baxter, Heather, RN RN Dell Lopez RN RN bp Corrections: (The following items were deleted from the chart) 13:32 13:08 02/25/2019 13:08 Discharged to Home. Impression: Radiculopathy. Condition is bp Stable. Forms are Medication Reconciliation Form, Thank You Letter, Antibiotic Education, Prescription Opioid Use. Follow up: Private Physician; When: 2 - 3 days; Reason: Recheck today's complaints, Continuance of care, Re-evaluation by your physician. Follow up: Brian Pappas; When: 2 - 3 days; Reason: Recheck today's complaints, Re-evaluation by your physician. Problem is new. Symptoms have improved. kristen
--- NOTE | 2019-02-25 13:09 | ER ---
Nurse's Notes [facility] Name: Daniela Medellin Age: 44 yrs Sex: Female : 1975 Arrival Date: 02/25/2019 Time: 11:18 Bed 20 Private MD: Unknown, Unknown Diagnosis: Radiculopathy Presentation: 02/25 11:20 Presenting complaint: Right hand numbness and tingling x 3 weeks. Transition of care: hb patient was not received from another setting of care. Onset of symptoms was February 04, 2019. Risk Assessment: Do you want to hurt yourself or someone else? Patient reports no desire to harm self or others. Initial Sepsis Screen: Does the patient meet any 2 criteria? No. Patient's initial sepsis screen is negative. Does the patient have a suspected source of infection? No. Patient's initial sepsis screen is negative. Care prior to arrival: None. 11:20 Method Of Arrival: Ambulatory 11:20 Acuity: NORA 4 hb Triage Assessment: 11:20 General: Appears in no apparent distress. comfortable, Behavior is cooperative, bp appropriate for age, anxious. Pain: Denies pain. EENT: No deficits noted. Neuro: Reports numbness in right hand. Cardiovascular: No deficits noted. Respiratory: No deficits noted. GI: No signs and/or symptoms were reported involving the gastrointestinal system. : No signs and/or symptoms were reported regarding the genitourinary system. Derm: No deficits noted. Musculoskeletal: No deficits noted. 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 - Social history:: Smoking status: Patient/guardian denies using tobacco. - Ebola Screening: : No symptoms or risks identified at this time. - Family history:: not pertinent. Screenin:08 Abuse screen: Denies threats or abuse. Denies injuries from another. Nutritional bp screening: No deficits noted. Tuberculosis screening: No symptoms or risk factors identified. Fall Risk None identified. Assessment: 11:25 General: SEE TRIAGE NOTE. bp 13:30 Reassessment: PT D/C HOME AMBULATORY WITH FAMILY, DX WITH RADICULOPATHY. bp Vital Signs: 11:22 BP 150 / 95; Pulse 71; Resp 16; Temp 97.7; Pulse Ox 100% on R/A; Weight 79.38 kg; bp Height 5 ft. 3 in. (160.02 cm); Pain 10/10; 13:30 BP 147 / 89; Pulse 77; Resp 17; Temp 97.7; Pulse Ox 100% ; bp 11:22 Body Mass Index 31.00 (79.38 kg, 160.02 cm) bp ED Course: 11:18 Patient arrived in ED. ag5 11:18 Evans Moore MD is Private Physician. ag5 11:19 Unknown, Unknown is Private Physician. ag5 11:21 Triage completed. hb 11:22 Arm band placed on. hb 11:27 Dell Lopez, RN is Primary Nurse. bp 11:33 Bairon Albert MD is Attending Physician. kristen 12:08 Patient has correct armband on for positive identification. Allergy band placed. Bed in bp low position. Call light in reach. Side rails up X2. 13:06 Brian Pappas MD is Referral Physician. kristen 13:11 Sling applied to right arm. bp 13:32 No provider procedures requiring assistance completed. Patient did not have IV access bp during this emergency room visit. Administered Medications: 13:15 Drug: predniSONE 40 mg Route: PO; bp 13:30 Follow up: Response: No adverse reaction bp Outcome: 13:08 Discharge ordered by . kristen 13:32 Discharged to home ambulatory, with family. bp 13:32 Condition: stable 13:32 Discharge instructions given to patient, Instructed on discharge instructions, follow up and referral plans. medication usage, Demonstrated understanding of instructions, follow-up care, medications, Prescriptions given X 4. 13:32 Patient left the ED. bp Signatures: Bairon Albert MD MD cha Baxter, Heather, RN RN hb Dell Lopez, DARIUS RN Oscar Suggs ag5 Corrections: (The following items were deleted from the chart) 13:31 11:22 BP 150 / 95; Pulse 71bpm; Resp 1bpm; Pulse Ox 100% RA; Temp 97.7F; 79.38 kg; bp Height 5 ft. 3 in.; BMI: 31.0; Pain 10/10; hb
[2019-02-25] MEDS ORDERED: predniSONE 20 MG TAB ONE (13:21)
[2019-02-25 14:05] VITALS: TEMP 97.7; O2SAT 100
[2019-02-25 14:06] VITALS: BP 147/89
== END 2019-02-25 13:32 | disposition home or self-care (01) ==
LOC: ER 11:15
DX: M54.10 Radiculopathy, site unspecified (principal); I10 Essential (primary) hypertension; R56.9 Unspecified convulsions
CPT/HCPCS: 99283; J7512

== ENCOUNTER 2019-08-14 15:54 | Emergency (ER) | payer MEDICAID, SELFPAY ==
--- OUTSIDE RECORDS SUMMARY | 2019-08-14 15:59 | XMS REPORT | Summary of Care ---
:1975 Author Organization [facility] Address [address] [place] [id number] Care Team Providers Name Role Phone Leeanne Rodriguez Primary Care Provider Encounter Details Date Type Department Care Team Description 07/07/2019 Letter (Out) [facility], 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 History of bilateral tubal ligation 03/04/2015 documented as of this encounter (statuses as of 07/07/2019) Resolved Problems Problem Noted Date Resolved Date General counseling and advice for contraceptive management 03/04/20152018 Overview: ICD10 Diagnosis 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 Irregular menstrual cycle 03/04/2015 10/17/2018 Overweight 03/04/2015 10/17/2018 Overview: ICD10 Diagnosis 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 Prehypertension 03/04/2015 10/17/2018 documented as of this encounter (statuses as of 07/07/2019) Social History Tobacco Use Types Packs/Day Years [...] Date Last Done Comments DTaP,Tdap,and Td Vaccines 02/25/1987 (1 - Tdap) PAP SMEAR 09/08/2014 09/08/2009, 08/17/2008, 09/22/2004, Additional history exists INFLUENZA VACCINE (#1) 2019 Breast Cancer Screening 10/25/2019 10/24/2018 (MAMMOGRAM) PNEUMOCOCCAL 0-64 YEARS Aged Out No longer eligible COMBINED SERIES based on patient's age to complete this topic documented as of this encounter Results Not on filedocumented in this encounter Insurance Payer Benefit Plan / Subscriber ID Effective Dates Phone Address Type Group [employer] MEDICAID OF xxxxxxxxx 2019-Present [phone] [place] [address] [place] [address] documented as of this encounter Advance Directives Name Relationship Healthcare Agent Relationship Communication Dell Howard Other Second alternate healthcare agent
--- OUTSIDE RECORDS SUMMARY | 2019-08-14 15:59 | XMS REPORT ---
:1975 Author [facility] Address [address] [place] [address] Dr. Contreras [address] [place] [id number] Care Team Providers Name Role Phone Unavailable Unavailable Unavailable Problems This patient has no known problems. Allergies, Adverse Reactions, Alerts This patient has no known allergies or adverse reactions. Medications This patient has no known medications.
[2019-08-14] MEDS ORDERED: LIDOCAINE 1% MPF 2 ML AMPULE ONE (17:39)
[2019-08-14] MEDS ORDERED: CEFTRIAXONE 1000 MG/VIAL ONE (17:39)
[2019-08-14] MEDS ORDERED: HYDROCODONE/APAP 5/325 MG TAB ONE (17:41)
--- NOTE | 2019-08-14 17:41 | EDPHYS ---
Physician Documentation [facility] Name: Daniela Medellin Age: 44 yrs Sex: Female : 1975 Arrival Date: 08/14/2019 Time: 15:58 Bed 20 Private MD: ED Physician Erlin Covington HPI: 08/13 17:37 This 44 yrs old Black Female presents to ER via Ambulatory with complaints of Flu jmm Symptoms. 17:37 The patient or guardian reports sore throat. Onset: The symptoms/episode began/occurred jmm gradually, 1 day(s) ago. Modifying factors: The symptoms are alleviated by nothing. the symptoms are aggravated by nothing. Associated signs and symptoms: Pertinent positives: earache, sore throat. This is a 44 year old female with a history of htn that presents to the ED with complaints of sore throat, chills, earache beginning yesterday. Denies known infectious exposure. Denies recent travel. . 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 - Social history:: Smoking status: Patient denies any tobacco usage or history of. ROS: 17:37 Abdomen/GI: Negative for abdominal pain, nausea, vomiting, diarrhea, and constipation, jmm Back: Negative for injury and pain. 17:37 Constitutional: Positive for body aches. 17:37 ENT: Positive for ear pain, sore throat. 17:37 Respiratory: Negative for cough. 17:37 All other systems are negative. Exam: 17:37 Constitutional: This is a well developed, well nourished patient who is awake, alert, jmm and in no acute distress. Head/Face: atraumatic. Eyes: EOMI, no conjunctival erythema appreciated ENT: Moist Mucus Membranes Neck: Trachea midline, Supple Chest/axilla: Normal chest wall appearance and motion. Cardiovascular: Regular rate and rhythm. No edema appreciated Respiratory: Normal respirations, no respiratory distress appreciated Abdomen/GI: Non distended, soft Back: Normal ROM Skin: General appearance color normal MS/ Extremity: Moves all extremities, no obvious deformities appreciated, no edema noted to the lower extremities Neuro: Awake and alert, normal gait Psych: Behavior is normal, Mood is normal, Patient is cooperative and pleasant 17:37 ENT: TM's: erythema, that is moderate, on the left, Posterior pharynx: erythema, that is moderate. Vital Signs: 16:10 BP 143 / 85; Pulse 89; Resp 15; Temp 98.6(TE); Pulse Ox 99% on R/A; Weight 83.01 kg; ss Height 5 ft. 3 in. (160.02 cm); Pain 10/10; 16:10 Body Mass Index 32.42 (83.01 kg, 160.02 cm) ss MDM: 17:21 Patient medically screened. [facility] 17:37 Data reviewed: vital signs, nurses notes. Counseling: I had a detailed discussion with dany the patient and/or guardian regarding: the historical points, exam findings, and any diagnostic results supporting the discharge/admit diagnosis, lab results, the need for outpatient follow up, to return to the emergency department if symptoms worsen or persist or if there are any questions or concerns that arise at home. ED course: Patient is alert and non toxic in appearance in the ED. No signs of resp distress appreciated. Patient is advised to follow up with pcp and otherwise given strict return precautions. patient understood and agrees with the plan of care. . 03 16:14 Order name: Flu; Complete Time: 16:59 ss 08/13 16:14 Order name: Strep; Complete Time: 16:59 ss 08/13 16:47 Order name: Throat Culture EDMS Administered Medications: 17:38 Drug: [place] 5 mg-325 mg 1 tabs Route: PO; em 18:16 Follow up: Response: No adverse reaction; Marked relief of symptoms; Pain is decreased em 17:40 Drug: Rocephin (cefTRIAXone) 1 grams Route: IM; Site: right gluteus; em 18:16 Follow up: Response: No adverse reaction em Disposition: 08/14 07:04 Co-signature as Attending Physician, Erlin Covington MD I agree with the assessment and kdr plan of care. Disposition: 08/14/19 17:41 Discharged to Home. Impression: Acute serous otitis media, Acute pharyngitis. - Condition is Stable. - Discharge Instructions: Otitis Media, Adult, Pharyngitis. - Prescriptions for Augmentin 875- 125 mg Oral Tablet - take 1 tablet by ORAL route every 12 hours for 10 days; 20 tablet. - Medication Reconciliation Form, Thank You Letter, Antibiotic Education, Prescription Opioid Use form. - Follow up: Private Physician; When: 2 - 3 days; Reason: Recheck today's complaints, Continuance of care, Re-evaluation by your physician. Signatures: Dispatcher [employer] EDErlin Gay MD MD kdr Mickail, Joel, PA PA jmm Munoz, Edgar, RN RN em Genevieve Dexter RN RN ss Corrections: (The following items were deleted from the chart) 08/13 18:22 17:41 08/14/2019 17:41 Discharged to Home. Impression: Acute serous otitis media; Acute em pharyngitis. Condition is Stable. Forms are Medication Reconciliation Form, Thank You Letter, Antibiotic Education, Prescription Opioid Use. Follow up: Private Physician; When: 2 - 3 days; Reason: Recheck today's complaints, Continuance of care, Re-evaluation by your physician. mike
--- NOTE | 2019-08-14 17:41 | ER ---
Nurse's Notes [facility] Name: Daniela Medellin Age: 44 yrs Sex: Female : 1975 Arrival Date: 08/14/2019 Time: 15:58 Bed 20 Private MD: Diagnosis: Acute serous otitis media;Acute pharyngitis Presentation: 08/13 16:10 Chief complaint: Patient states: Flu like symptoms that began 2 days ago. Coronavirus ss screen: The patient has NOT traveled to a country currently being monitored by the [facility] within the last 14 days. Proceed with normal triage procedures. Ebola Screen: Patient denies exposure to infectious person. Patient denies travel to an Ebola-affected area in the 21 days before illness onset. Initial Sepsis Screen: Does the patient meet any 2 criteria? No. Patient's initial sepsis screen is negative. Does the patient have a suspected source of infection? No. Patient's initial sepsis screen is negative. Risk Assessment: Do you want to hurt yourself or someone else? Patient reports no desire to harm self or others. 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 - Social history:: Smoking status: Patient denies any tobacco usage or history of. Screenin:02 Abuse screen: Denies threats or abuse. Nutritional screening: No deficits noted. em Tuberculosis screening: No symptoms or risk factors identified. Fall Risk None identified. Assessment: 17:02 General: Appears in no apparent distress. comfortable, Behavior is calm, cooperative, em Reports fever for 12-24 hours. Pain: Complains of pain in "everywhere" Pain currently is 10 out of 10 on a pain scale. Pain began 1 day ago. Neuro: Level of Consciousness is awake, alert, obeys commands, Oriented to person, place, time, situation, Appropriate for age. Cardiovascular: Capillary refill < 3 seconds Patient's skin is warm and dry. Respiratory: Reports cough that is productive, pain with cough Airway is patent Respiratory effort is even, unlabored, Respiratory pattern is regular, symmetrical, Breath sounds are clear bilaterally. GI: Patient currently denies nausea, vomiting. : Denies burning with urination. Derm: Skin is intact, is healthy with good turgor, Skin is pink, warm \\T\\ dry. Musculoskeletal: Capillary refill < 3 seconds, Range of motion: intact in all extremities. Vital Signs: 16:10 BP 143 / 85; Pulse 89; Resp 15; Temp 98.6(TE); Pulse Ox 99% on R/A; Weight 83.01 kg; ss Height 5 ft. 3 in. (160.02 cm); Pain 10/10; 16:10 Body Mass Index 32.42 (83.01 kg, 160.02 cm) ED Course: 15:58 Patient arrived in ED. mr 16:13 Triage completed. 16:13 Arm band placed on right wrist. 16:59 Evans Cummins PA is PHCP. [facility] 16:59 Erlin Covington MD is Attending Physician. [facility] 17:02 Patient has correct armband on for positive identification. Bed in low position. Call em light in reach. Adult w/ patient. 17:21 Daisha Hickman, RN is Primary Nurse. iw 18:03 No provider procedures requiring assistance completed. Patient did not have IV access em during this emergency room visit. Administered Medications: 17:38 Drug: [place] 5 mg-325 mg 1 tabs Route: PO; em 18:16 Follow up: Response: No adverse reaction; Marked relief of symptoms; Pain is decreased em 17:40 Drug: Rocephin (cefTRIAXone) 1 grams Route: IM; Site: right gluteus; em 18:16 Follow up: Response: No adverse reaction em Outcome: 17:41 Discharge ordered by MD. [facility] 18:19 Discharged to home ambulatory, with family. em 18:19 Condition: good 18:19 Discharge instructions given to patient, Instructed on discharge instructions, follow up and referral plans. medication usage, Demonstrated understanding of instructions, follow-up care, medications, Prescriptions given X 1. 18:22 Patient left the ED. em Signatures: Evans Cummins PA PA jmm Rivera, Mary mr GutierrezOctavio RN RN Daisha Hickman RN RN Genevieve Dexter RN RN
[2019-08-14 18:35] VITALS: BP 143/85; TEMP 98.6; O2SAT 99
== END 2019-08-14 18:22 | disposition home or self-care (01) ==
LOC: ER 15:54
DX: H65.02 Acute serous otitis media, left ear (principal); I10 Essential (primary) hypertension
CPT/HCPCS: 87070; 87081; 87804 ×2; 96372; 99283; J2001

== ENCOUNTER 2019-10-09 01:08 | Emergency (ER) | payer MEDICAID ==
--- OUTSIDE RECORDS SUMMARY | 2019-10-09 01:10 | XMS REPORT ---
:1975 Author Organization [facility] t Address [address] [place] [address] Dr. Contreras [address] [place] [address] Care Team Providers Name Role Phone Unavailable Unavailable Unavailable Problems This patient has no known problems. Allergies, Adverse Reactions, Alerts This patient has no known allergies or adverse reactions. Medications This patient has no known medications.
--- OUTSIDE RECORDS SUMMARY | 2019-10-09 01:11 | XMS REPORT | Summary of Care ---
:1975 Author Organization [facility] - Health Address [address] [place] [address] Care Team Providers Name Role Phone Joanne [place] Leonardo GUZMAN Primary Care Provider Encounter Details Date Type Department Care Team Description 09/06/2019 Orders Only [facility] Doctor Unassigned, No [address] [facility] Name [place] [id number] [address] [place] [phone] Allergies Active Allergy Reactions Severity Noted Date Comments Shrimp Unknown - See comments 02/06/2019 documented as of this encounter (statuses as of 09/06/2019) Medications Medication Sig Dispensed Refills Start Date [...] as of this encounter (statuses as of 09/06/2019) Active Problems Problem Noted Date Seizures 02/06/2019 Seizure 02/06/2019 Well woman exam 10/17/2018 Encounter for contraceptive management, unspecified ty pe 10/17/2018 Elevated blood pressure reading without diagnosis of h ypertension 10/17/2018 Breast lump 10/17/2018 Screening examination for STD (sexually transmitted di sease) 03/04/2015 Class 1 obesity with body mass index (BMI) of 30.0 to 30.9 in adult, 03/04/2015 unspecified obesity type, unspecified whether serious comorbidity present Overview: ICD10 Diagnosis Term French Weaver Utility History of bilateral tubal ligation 03/04/2015 documented as of this encounter (statuses as of 09/06/2019) Resolved Problems Problem Noted Date Resolved Date General counseling and advice for contraceptive management 0 03/04/2015 10/17/2018 Overview: ICD10 Diagnosis Term French Weaver Utility Irregular menstrual cycle 03/04/2015 10/17/2018 Overweight 03/04/2015 10/17/2018 Overview: ICD10 Diagnosis Term French Weaver Utility Prehypertension 03/04/2015 10/17/2018 documented as of this encounter (statuses as of 09/06/2019) Social History Tobacco Use Types Packs/Day Years [...] DTaP,Tdap,and Td Vaccines 02/25/1987 (1 - Tdap) INFLUENZA VACCINE (#1) 2019 Breast Cancer Screening 10/25/2019 10/24/2018 (MAMMOGRAM) PAP SMEAR 06/11/2022 06/11/2017, 09/08/2009, 08/17/2008, Additional history exists PNEUMOCOCCAL 0-64 YEARS Aged Out No longe r eligible COMBINED SERIES based on patient 's age to complete this topic documented as of this encounter Procedures Procedure Name Priority Date/Time Associated Diagnosis Comme nts CONSENT/REFUSAL FOR Routine 09/06/2019 5:21 AM CDT DIAGNOSIS AND TREATMENT documented in this encounter Results Not on filedocumented in this encounter Insurance Payer Benefit Plan / Subscriber ID Effective Dates Phone Addre ss Type Group [facility] MEDICAID OF xxxxxxxxx 2019-Present [phone] [address] Medicaid [place] [id number] [place] [phone] documented as of this encounter Advance Directives Name Relationship Healthcare Agent Relationship Co mmunication Dell Howard [facility]
--- OUTSIDE RECORDS SUMMARY | 2019-10-09 01:12 | XMS REPORT | Summary of Care ---
:1975 Author Organization [facility] - Health Address [address] [place] [address] Care Team Providers Name Role Phone Leeanne Rodriguez Primary Care Provider Reason for Visit Reason Comments Vomiting Auth/Cert Status Reason Specialty Diagnoses / Referred By Referred To Procedures Contact Contact Emergency Medicine [facility] Em ergency Dept [address] [place] [address] [place] [address] Fax: Encounter Details Date Type Department Care Team Description 09/06/2019 Emergency ADC-Emergency Jacek Conklin S, Nausea an d vomiting in adult patient (Primary Dx); Department MD Epigastric pain [address] [place] [address] [address] [place] [address] [id number] [place], [place] [phone] Allergies Active Allergy Reactions Severity Noted Date [...] 5 02/06/2019 Active tabletIndications: mouth daily. Seizures ondansetron (ZOFRAN) 4 Take 1 tablet by 12 tablet 0 09/06/2019 Active mg tabletIndications: mouth every 8 Nausea and vomiting in (eight) hours as adult patient needed for Nausea and Vomiting (N/V). dicyclomine 20 mg Take 1 tablet by 20 tablet 0 09/06/2019 Active tabletIndications: mouth every 6 Nausea and vomiting in (six) hours as adult patient, needed for Epigastric pain Abdominal pain. pantoprazole (PROTONIX) Take 1 tablet by 28 tablet 0 0 Active 40 mg EC mouth daily. tabletIndications: Nausea and vomiting in adult patient, Epigastric pain documented as of this encounter (statuses as [...] serious comorbidity present Overview: ICD10 Diagnosis Term Janitorial Services Supervisor Utility History of bilateral tubal ligation 03/04/2015 documented as of this encounter (statuses as of 09/06/2019) Resolved Problems Problem Noted Date Resolved Date General counseling and advice for contraceptive management 0 03/04/2015 10/17/2018 Overview: ICD10 Diagnosis Term Janitorial Services Supervisor Utility Irregular menstrual cycle 03/04/2015 10/17/2018 Overweight 03/04/2015 10/17/2018 Overview: ICD10 Diagnosis Term Janitorial Services Supervisor Utility Prehypertension 03/04/2015 10/17/2018 documented as of [...] Sign Reading Time Taken Comments Blood Pressure - - Pulse 99 09/06/2019 5:34 AM CDT Temperature 36 C (96.8 F) 09/06/2019 5:34 AM CDT Respiratory Rate 20 09/06/2019 5:34 AM CDT Oxygen Saturation 98% 09/06/2019 5:34 AM CDT Inhaled Oxygen Concentration - - Weight 81.6 kg (180 lb) 09/06/2019 5:34 AM CDT Height 160 cm (5' 3") 09/06/2019 5:34 AM CDT Body Mass Index 31.89 09/06/2019 5:34 AM CDT documented in this encounter Discharge Instructions Jacek Mariscal MD - 09/06/2019 DIAGNOSIS Diagnoses that have been ruled out: None Diagnoses that are still under consideration: None Final diagnoses: Nausea and vomiting in adult patient Epigastric pain NO LIFE-THREATENING FINDINGS ON TODAY'S EXAM. PROCEDURES IN THE ER TODAY: Orders Placed This Encounter Procedures CBC WITH DIFF COMP. METABOLIC PANEL (09449) LIPASE URINALYSIS CBC WITH DIFFERENTIAL POCT TEST MEDICATIONS ADMINISTERED IN THE ER TODAY AND DISCHARGE MEDICATIONS: Orders Placed This Encounter Medications NaCl 0.9% (NS) IV infusion 1,000 mL ondansetron (ZOFRAN (PF)) injection 4 mg dicyclomine (BENTYL) injection 20 mg ondansetron (ZOFRAN) 4 mg tablet dicyclomine 20 mg tablet pantoprazole (PROTONIX) 40 mg EC tablet FOLLOW-UP RECOMMENDATIONS: RECOMMEND FOLLOW-UP WITH YOUR PRIMARY CARE PROVIDER OR WITH DR NEWMAN, GASTROENTEROLOGY SPECIALIST IN 2-5 DAYS, ESPECIALLY IF NO IMPROVEMENT IN SYMPTOMS. MAY FOLLOW-UP WITH A PROVIDER OF YOUR CHOICE, SUCH : 1. A PHYSICIAN OF YOUR CHOICE 2. [facility], . LOCATIONS IN [facility] 3. [facility], [address] [place] [address]; [phone] OR, IF YOU WISH TO FOLLOW-UP WITHIN THE [facility], MAY TRY THESE OPTIONS (CLINIC APPOINTMENTS AVAILABLE ON [id number] BASIS): 1. SCHEDULE AN APPOINTMENT ONLINE AT [facility] 2. OR CALL THE [facility] ACCESS CENTER AT OR 3. OR CALL YOUR [facility] PHYSICIAN'S OFFICE DIRECTLY IF YOU ARE ALREADY AN ESTABLISHED [facility] PATIENT. RETURN TO ER FOR WORSENING OF SYMPTOMS documented in this encounter Plan of Treatment Health [...] Procedure Name Priority Date/Time Associated Comments Diagnosis POCT TEST GRACE 09/06/2019 5:49 Nausea and vomiti ng Results for this AM CDT in adult patient procedure a re in the results section. CBC WITH DIFFERENTIAL STAT 09/06/2019 5:45 Nausea and vomi ting Results for this AM CDT in adult patient procedure a re in the results section. URINALYSIS STAT 09/06/2019 5:45 Nausea and vomiting Resu lts for this AM CDT in adult patient procedure a re in the results section. CBC WITH DIFFERENTIAL STAT 09/06/2019 5:45 Nausea and vomi ting Results for this AM CDT in adult patient procedure a re in the results section. COMP. METABOLIC PANEL STAT 09/06/2019 5:45 Nausea and vomi ting Results for this (16093) AM CDT in adult patient procedure a re in the results section. LIPASE STAT 09/06/2019 5:45 Nausea and vomiting Resu lts for this AM CDT in adult patient procedure a re in the results section. NOTICE OF PRIVACY Routine 09/06/2019 5:22 PRACTICES AM CDT documented in this encounter Results POCT TEST (09/06/2019 5:49 AM CDT) Pathologist Sig nature POCT PREG negative On board controls acceptable present with C Line POCT PREG LOT # [id number] POCT PREG TEST DATE 01-08-2021 Specimen Urine - URINE, CLEAN CATCH CBC WITH DIFFERENTIAL (09/06/2019 5:45 AM CDT) Pathologist Sig nature WBC 7.77 4.30 - 11.10 [facility] 10*3/L [facility] RBC 4.43 3.93 - 5.25 [facility] 10*6/L [facility] HGB 12.9 11.6 - 15.0 g/dL [facility] HCT 39.1 35.7 - 45.2 % [facility] MCV 88.3 80.6 - 95.5 fL [facility] MCH 29.1 25.9 - 32.8 pg [facility] MCHC 33.0 31.6 - 35.1 g/dL [facility] RDW-SD 41.4 39.0 - 49.9 fL [facility] RDW-CV 12.8 12.0 - 15.5 % [facility] PLT 239 166 - 358 [facility] 10*3/L [facility] MPV 10.2 9.5 - 12.9 fL [facility] NRBC/100 WBC 0.0 0.0 - 10.0 /100 [facility] WBCs [facility] NRBC x10^3 <0.01 10*3/L [facility] GRAN MAT (NEUT) % 61.5 % [facility] IMM GRAN % 0.80 % [facility] LYMPH % 28.3 % [facility] MONO % 8.2 % [facility] EOS % 0.6 % [facility] BASO % 0.6 % [facility] GRAN MAT x10^3(ANC) 4.77 1.88 - 7.09 [facility] 10*3/uL [facility] IMM GRAN x10^3 0.06 0.00 - 0.06 [facility] 10*3/uL [facility] LYMPH x10^3 2.20 1.32 - 3.29 [facility] 10*3/uL [facility] MONO x10^3 0.64 0.33 - 0.92 [facility] 10*3/uL [facility] EOS x10^3 0.05 0.03 - 0.39 [facility] 10*3/uL [facility] BASO x10^3 0.05 0.01 - 0.07 [facility] 10*3/uL [facility] Specimen Blood - VENOUS Performing Organization Address [facility] Phone Number [facility] CLIA: [id number], [address] [place], [place] [address] URINALYSIS (09/06/2019 5:45 AM CDT) Pathologist Sig nature APPEARANCE Clear Clear [facility] COLOR Yellow Yellow [facility] PH 6.0 4.8 - 8.0 [facility] SP GRAVITY 1.012 1.003 - 1.030 [facility] GLU U QUAL Normal Normal [facility] BLOOD 2+ (A) Negative [facility] KETONES Negative Negative [facility] PROTEIN Negative Negative [facility] UROBILIN Normal Normal [facility] BILIRUBIN Negative Negative [facility] NITRITE Negative Negative [facility] LEUK EARL 500/uL (A) Negative [facility] RBC/HPF 10 (H) 0 - 3 HPF [facility] WBC/HPF 4 0 - 5 HPF [facility] BACTERIA Few (A) Negative [facility] MUCOUS Slight (A) Negative LPF [facility] SQ EPITH 7 HPF [facility] YEAST BUD 1 <=1 HPF [facility] Specimen Urine - URINE, CLEAN CATCH Performing Organization Address [facility] Phone Number [facility] CLIA: [id number], [address] [place] [address] LIPASE (09/06/2019 5:45 AM CDT) Pathologist Sig nature LIPASE 15 0 - 220 U/L [facility] Specimen Blood - VENOUS Performing Organization Address [facility] Phone Number [facility] CLIA: [id number], [address] [place], [place] [address] COMP. METABOLIC PANEL (31141) (09/06/2019 5:45 AM CDT) Pathologist Sig nature NA 138 135 - 145 mmol/L [facility] K 3.9 3.5 - 5.0 mmol/L [facility] CL 108 98 - 108 mmol/L [facility] CO2 TOTAL 27 23 - 31 mmol/L [facility] AGAP 3 2 - 16 [facility] BUN 9 7 - 23 mg/dL [facility] GLUCOSE 105 70 - 110 mg/dL [facility] CREATININE 0.61 0.50 - 1.04 [facility] mg/dL [facility] TOTAL BILI 0.4 0.1 - 1.1 mg/dL [facility] CALCIUM 8.9 8.6 - 10.6 mg/dL [facility] T PROTEIN 7.8 6.3 - 8.2 g/dL [facility] ALBUMIN 4.2 3.5 - 5.0 g/dL [facility] ALK PHOS 57 34 - 122 U/L [facility] ALTv 16 5 - 35 U/L [facility] AST(SGOT) 25 13 - 40 U/L [facility] eGFR Calculation 107.0 mL/min/1.73m2 [facility] (Non-) [facility] LABORATOR Y eGFR Calculation 129.7 mL/min/1.73m2 [facility] () [facility] Specimen Blood - VENOUS Narrative Performed At Association of Glomerular Filtration Rate (GFR) [facility] and Staging of Kidney Disease* + + +- + | GFR (mL/min/1.73 m2) | With Kidney Damage | Without Kidney Damage + + +- + | >90 | Stage one | Normal + + +- + | 60-89 | Stage two | Decreased GFR + + +- + | 30-59 | Stage three | Stage three + + +- + | 15-29 | Stage four | Stage four + + +- + | <15 (or dialysis) | Stage five | Stage five + + +- + *Each stage assumes the associated GFR level has been in effect for at least three months. Stages 1 to 5, with or without kidney [...] tests). Performing Organization Address City/State/Zipcode Phone Number [facility] CLIA: [id number], [address] [place], [place] [address] documented in this encounter Visit Diagnoses Diagnosis Nausea and vomiting in adult patient - P rimary Nausea with vomiting Epigastric pain Abdominal pain, epigastric documented in this encounter Administered Medications Medication Order MAR Action Action Date Dose Rate Site NaCl 0.9% (NS) IV infusion New Bag 09/06/2019 5:48 AM CDT 1,000 m L 999 mL/hr 1,000 mL at 999 mL/hr, Intravenous, CONTINUOUS, Starting 09/06/19 at 0630, Until Discontinued, Routine Medication Order MAR Action Action Date Dose Rate Site dicyclomine (BENTYL) Given 09/06/2019 6:30 AM 20 mg Right injection 20 mg CDT Dorsogluteal-IM 20 mg, Intramuscular, ONCE, 1 dose, 09/06/19 at 0730, Routine ondansetron (ZOFRAN (PF)) injection 4 mg Given 09/06/2019 5:48 AM CDT 4 mg 4 mg, Slow IV Push, ONCE, 1 dose, 09/06/19 at 0700, GRACE documented in this encounter Insurance Payer Benefit Plan / Subscriber ID Effective Phone Address T e Group Dates RENE LÓPEZ xxxxxxxxx 2019-Pres [address] Medic aid [facility] - [place]CARE [place] [id number] MANAGED MEDICAID [place], [place]ICAID [place] documented as of this encounter Advance Directives Name Relationship Healthcare Agent Relationship Co mmunication Dell Howard Other Second alternate healthcare agen t
--- OUTSIDE RECORDS SUMMARY | 2019-10-09 01:12 | XMS REPORT | Summary of Care ---
:1975 Author Organization [facility] Address [address] [place] [address] Care Team Providers Name Role Phone Leeanne Rodriguez DOUGH PUNCHER Primary Care Provider Reason for Referral Radiology Services (Routine) Status Reason Specialty Diagnoses / Referred By Referred To Procedures Contact Contact New Request Diagnostic Diagnoses Right foot pain Lisandro Cortés, Radiology Procedures XR FOOT <3 VW RIGHT PAC [address] [place] [address] Reason for Visit Reason Comments New Patient Foot Pain Rt X 10/03/19 - 4 days out. w ent to [facility] ER - no films. no specific injury. came in using crutch es, with an caden wrap and nwb, and ibuprofen 800 - 4-6 hours . Encounter Details Date Type Department Care Team Description 10/07/2019 Office Visit [facility] Orthopaedic Lisandro Cortés R ight foot pain (Primary Dx); Surgery- [place] PAC Sprain of anterior talofibular ligament of right ankle, initial encounter [address], [address] [place] [address] [place] [address] [place], [place] [phone] Allergies Active Allergy Reactions Severity Noted Date Comments Shrimp Unknown - See comments 02/06/2019 documented as of this encounter (statuses as of 10/07/2019) Medications Medication Sig Dispensed Refills Start Date [...] and vomiting in adult patient, Epigastric pain meloxicam 15 mg Take 1 tablet by 30 tablet 0 10/07/2019 Active tabletIndications: mouth daily for 0 Sprain of anterior 30 days. talofibular ligament of right ankle, initial encounter documented as of this encounter (statuses as of 10/07/2019) Active Problems Problem Noted Date Seizures 02/06/2019 [...] serious comorbidity present Overview: ICD10 Diagnosis Term Pararescue Craftsman Utility History of bilateral tubal ligation 03/04/2015 documented as of this encounter (statuses as of 10/07/2019) Resolved Problems Problem Noted Date Resolved Date General counseling and advice for contraceptive management 0 03/04/2015 10/17/2018 Overview: ICD10 Diagnosis Term Pararescue Craftsman Utility Irregular menstrual cycle 03/04/2015 10/17/2018 Overweight 03/04/2015 10/17/2018 Overview: ICD10 Diagnosis Term Pararescue Craftsman Utility Prehypertension 03/04/2015 10/17/2018 documented as of this encounter (statuses as of 10/07/2019) Social History Tobacco Use Types Packs/Day Years Used Date Never Smoker Smokeless Tobacco: Never Used Alcohol Use Drinks/Week oz/Week Comments No Sex Assigned at Date Recorded Not on file Job Start Date Occupation Industry Not on file Not on file Not on file Travel History Travel Start Travel End No recent travel history available. COVID-19 Exposure Response Date Recorded In the last month, have you been in contact with No / Unsure 10/07/2019 1:48 PM CDT someone who was confirmed or suspected to have Coronavirus / COVID-19? documented as of this encounter Last Filed Vital Signs Vital Sign Reading Time Taken Comments Blood Pressure 134/84 10/07/2019 1:48 PM CDT Pulse 85 10/07/2019 1:48 PM CDT Temperature - - Respiratory Rate - - Oxygen Saturation - - Inhaled Oxygen Concentration - - Weight 81.6 kg (180 lb) 10/07/2019 1:48 PM CDT Height 160 cm (5' 3") 10/07/2019 1:48 PM CDT Body Mass Index 31.89 10/07/2019 1:48 PM CDT documented in this encounter Progress Notes Lisandro Cortés S, PAC - 10/07/2019 3:15 PM CDT Cc: Chief Complaint Patient presents with New Patient Foot Pain Rt X 10/03/19 - 4 days out. went to [facility] ER - no films. no specific injury. came in using crutches, with an caden wrap and nwb, and ibuprofen 800 - 4-6 hours . Daniela Medellin is a 44 year old female. right foot pain date of injury 10/03/2019 she was seen in [facility] emergency room and they did not take x-rays they didn't give her an Caden wrap and had her wear and use crutches. Her pain is 9/10 in intensity. Is putting up a there was no slip or fall there is no twist or direct trauma. She tried ice and ibuprofen there was some bruising initially she has pain on the lateral malleolus of her right ankle. Allergies Daniela is allergic to shrimp. Medications Outpatient Medications Prior to Visit Medication Sig Dispense Refill dicyclomine 20 mg tablet Take 1 tablet by mouth every 6 (six) hours as needed for Abdominal pain. 20 tablet 0 ondansetron (ZOFRAN) 4 mg tablet Take 1 tablet by mouth every 8 (eight) hours as needed for Nausea and Vomiting (N/V). 12 tablet 0 pantoprazole (PROTONIX) 40 mg EC tablet Take 1 tablet by mouth daily. 28 tablet 0 foLIC acid 1 mg tablet Take 1 tablet by mouth daily. 30 tablet 5 levETIRAcetam 750 mg tablet Take 1 tablet by mouth 2 (two) times daily. 60 tablet 5 losartan 100 mg tablet TK 1 T PO ONCE D. 1 methylPREDNISolone (MEDROL, ARIA,) 4 mg tablets Take 21 tablets by mouth SEE- INSTRUCTIONS. followpackage directions 1 Each 0 No facility-administered medications prior to visit. Histories Past Medical History: Diagnosis Date Hypertension with pregnancies Seizures 02/06/2019 Past Surgical History: Procedure Laterality Date APPENDECTOMY 2014 TUBAL LIGATION 2010 Social History Socioeconomic History Marital status: Single Spouse name: Not on file Number of children: Not on file Years of education: Not on file Highest education level: Not on file Occupational History Not on file Social Needs Financial resource strain: Not on file Food insecurity: Worry: Not on file Inability: Not on file Transportation needs: Medical: Not on file Non-medical: Not on file Tobacco Use Smoking status: Never Smoker Smokeless tobacco: Never Used Substance and Sexual Activity Alcohol use: No Drug use: No Sexual activity: Not Currently Partners: Male control/protection: Surgical Comment: last sexual intercourse 10/08/2018 Lifestyle Physical activity: Days per week: Not on file Minutes per session: Not on file Stress: Not on file Relationships Social connections: Talks on phone: Not on file Gets together: Not on file Attends scientology service: Not on file Active member of club or organization: Not on file Attends meetings of clubs or organizations: Not on file Relationship status: Not on file Intimate partner violence: Fear of current or ex partner: Not on file Emotionally abused: Not on file Physically abused: Not on file Forced sexual activity: Not on file Other Topics Concern Not on file Social History Narrative Orthodox preference is Buddhist. Patient lives with and children. Family History Problem Relation Age of Onset Heart Mother Hypertension Mother Hypertension Father Diabetes Father No Significant Medical Problems Sister No Significant Medical Problems Brother No Significant Medical Problems Maternal Aunt No Significant Medical Problems Maternal Uncle No Significant Medical Problems Paternal Aunt No Significant Medical Problems Paternal Uncle Cancer Maternal Grandmother Diabetes Maternal Grandmother Hypertension Maternal Grandmother Breast Cancer Maternal Grandmother Cancer Maternal Grandfather Diabetes Maternal Grandfather Hypertension Maternal Grandfather Breast Cancer Paternal Grandmother Diabetes Paternal Grandmother Heart Paternal Grandmother Hypertension Paternal Grandmother No Significant Medical Problems Paternal Grandfather Review of Systems Constitutional: Negative. Eyes: Negative. Respiratory: Negative. Breasts: Negative. Cardiovascular: Negative. Gastrointestinal: Negative. Genitourinary: Negative. Musculoskeletal: Positive for joint swelling. Skin: Negative. Neurological: Negative. Psychiatric/Behavioral: Negative. Vital Signs BP 134/84 | Pulse 85 | Ht 63" (160 cm) | Wt 81.6 kg (180 lb) | BMI 31.89 kg/m Physical Exam Musculoskeletal: Physical Exam Constitutional: oriented to person, place, and time. appears well-developed and well-nourished. HENT: Head: Normocephalic and atraumatic. Right Ear: External ear normal. Left Ear: External ear normal. Eyes: Conjunctivae are normal. Neck: Normal range of motion. No strabismus Neck supple. Cardiovascular: Normal rate and regular rhythm. Pulmonary/Chest: Normal respiratory rate equal chest rise and fall in no apparent distress Abdominal: Abdomen nondistended nontender Neurological: alert and oriented to person, place, and time. No asymmetry Skin: Skin is warm and dry. Psychiatric: normal mood and affect. behavior is normal. Judgment and thought content normal. Nursing note and vitals reviewed. Has point tenderness to palpation of the lateral malleolus there is edema in the anterior talo fibular ligament area she is tender there as well as well as the posterior talo fibular ligament she is also tender on her deltoid ligament she is very uncomfortable to attempting to check passive resisted inversion or eversion the exam was quite limited. Assessment/Plan 1. Right foot pain XR FOOT <3 VW RIGHT 2. Sprain of anterior talofibular ligament of right ankle, initial encounter We will place her in a cast boot for 3 weeks progressive weightbearing as tolerated follow-up then to reassess. Give her some prescription strength anti-inflammatories orthopedic RICE Rest, ice, compression, elevation. documented in this encounter Plan of Treatment [...] topic documented as of this encounter Results XR FOOT <3 VW RIGHT (10/07/2019 1:56 PM CDT) Specimen Narrative Performed At This result has an attachment that is no t available. 2 views were taken of the foot and a ankle AP and oblique were obtained PACS afterwards to check the lateral malleolus there were n o signs of fracture or dislocation joint spaces were well maintained Performing Organization Address City/State[facility] Phone [facility] documented in this encounter Visit Diagnoses Diagnosis Right foot pain - Primary Pain in limb Sprain of anterior talofibular ligament of right ankle, initial encounter documented in this encounter Insurance Payer Benefit Plan / Subscriber ID Effective Phone Address T ype Group Dates RENE LÓPEZ xxxxxxxxx 2019-Pres P O BOX Medic aid [facility] [id number] MANAGED MEDICAID [place], [place] documented as of this encounter Advance Directives Name Relationship Healthcare Agent Relationship Co mmunication Dell Howard Other Second alternate healthcare agen t
--- OUTSIDE RECORDS SUMMARY | 2019-10-09 01:13 | XMS REPORT | Summary of Care ---
:1975 Author Organization [facility] Address [address] [place] [address] Care Team Providers Name Role Phone Leeanne Rodriguez Primary Care Provider Encounter Details Date Type Department Care Team Description [facility]/07[facility] Radiology [address] [place] [address] [place], [place] [phone] Allergies Active Allergy Reactions Severity Noted Date Comments Shrimp Unknown - See comments 02/06/2019 documented as of this encounter (statuses as of 10/08/2019) Medications Medication Sig Dispensed Refills Start Date [...] as of this encounter (statuses as of 10/08/2019) Active Problems Problem Noted Date Seizures 02/06/2019 [...] serious comorbidity present Overview: ICD10 Diagnosis Term Regional Operations Director Utility History of bilateral tubal ligation 03/04/2015 documented as of this encounter (statuses as of 10/08/2019) Resolved Problems Problem Noted Date Resolved Date General counseling and advice for contraceptive management 0 03/04/2015 10/17/2018 Overview: ICD10 Diagnosis Term Regional Operations Director Utility Irregular menstrual cycle 03/04/2015 10/17/2018 Overweight 03/04/2015 10/17/2018 Overview: ICD10 Diagnosis Term Regional Operations Director Utility Prehypertension 03/04/2015 10/17/2018 documented as of this encounter (statuses as of 10/08/2019) Social History Tobacco Use Types Packs/Day Years [...] filedocumented in this encounter Plan of Treatment Date Type Specialty Care Team Description 10/28/2019 Office Visit Orthopedic Surgery Lisandro Cortés, PAC [address] [place], [place] [phone] Health Maintenance Due Date Last Done Comments [...] Name Priority Date/Time Associated Diagnosis Comme nts XR FOOT <3 VW RIGHT Routine 10/07/2019 1:56 PM Right foot mirtha n Results for this CDT procedure are i n the results section. documented in this encounter Results XR FOOT <3 VW [...] spaces were well maintained Performing Organization Address City/State/Zipcode Phone Number PACS documented in this encounter Visit Diagnoses Diagnosis Right foot pain Pain in limb documented in this encounter Insurance Payer Benefit Plan / Subscriber ID Effective Phone Address T ype Group Dates RENE LÓPEZ xxxxxxxxx 2019-Pres P O BOX Medic aid [place]ALTHCARE [place]ARE [place] [id number] MANAGED MEDICAID [place], [place] documented as of this encounter Advance Directives Name Relationship Healthcare Agent Relationship Co mmunication Dell Howard Other Second alternate healthcare agen t
--- OUTSIDE RECORDS SUMMARY | 2019-10-09 01:13 | XMS REPORT | Summary of Care ---
:1975 Author Organization [facility] Address [address] [place] [address] Care Team Providers Name Role Phone Leeanne Rodriguez EDUCATION COORDINATOR Primary Care Provider Reason for Referral Radiology Services (Routine) Status Reason Specialty Diagnoses / Referred By Referred To Procedures Contact Contact New Request Diagnostic Diagnoses Right foot pain Lisandro Cortés, Radiology Procedures XR FOOT <3 VW RIGHT PAC [address] [place] [address] Reason for Visit Reason Comments New Patient Foot Pain Rt X 10/03/19 - 4 days out. w ent to [facility] - no films. no specific injury. came in using crutch es, with an caden wrap and nwb, and ibuprofen 800 - 4-6 hours . 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 went to [facility] - no films. no specific injury. came in using crutches, with an caden wrap and nwb, and ibuprofen 800 - 4-6 hours . Daniela Medellin is a 44 year old female. right foot pain date of injury 10/03/2019 she was seen in [facility] emergency room and they did not take [...] file Gets together: Not on file Attends nondenominational service: Not on file Active member of [...] Concern Not on file Social History Narrative Pentecostal preference is Sabianism. Patient lives with and children. Family History [...] spaces were well maintained Performing Organization Address City/State/[facility] Phone Number PACS documented in this encounter Visit Diagnoses Diagnosis Right foot pain - Primary Pain in limb Sprain of anterior talofibular ligament of right ankle, initial encounter documented in this encounter Insurance Payer Benefit Plan / Subscriber ID Effective Phone Address T ype Group Dates RENE LÓPEZ xxxxxxxxx 2019-Pres P O BOX Medic aid [place]CARE [place] [id number] MANAGED MEDICAID [place], [place] documented as of this encounter Advance Directives Name Relationship Healthcare Agent Relationship Co mmunication Dell Howard Other Second alternate healthcare agen t
--- NOTE | 2019-10-09 01:33 | EDPHYS ---
Physician Documentation [facility] Name: Daniela Medellin Age: 44 yrs Sex: Female : 1975 Arrival Date: 10/09/2019 Time: 01:10 Bed 23 Private MD: ED Physician Perez Ceja HPI: 10/08 01:35 This 44 yrs old Black Female presents to ER via Unassigned with complaints of Foot Pain.snw 01:35 The patient presents with decreased range of motion, pain, swelling. The complaints snw affect the right ankle and dorsum of right foot. Context: The problem was sustained at work, resulted from twisting of the extremity, the patient can partially bear weight, the patient is able to ambulate, with mild difficulty, pt injured herself on Sunday. Saw Dr. Owen and had negative x-ray Sunday. Pt states she is having more pain and the boot is not helping. Taking Mobic as directed. Using Ice baths. Wearing boot. Pain is worse and not improving.. Onset: The symptoms/episode began/occurred gradually, 6 day(s) ago, and became worse and became persistent. Associated signs and symptoms: The patient has no apparent associated signs or symptoms. Treatment prior to arrival includes: icing the affected extremity, over the counter medications, splinting the affected extremity. Severity of symptoms: At their worst the symptoms were moderate, severe. It is unknown whether or not the patient has had similar symptoms in the past. The patient has been recently seen by a physician: an orthopedic surgeon. 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 - Social history:: Smoking status: Patient denies any tobacco usage or history of. ROS: 01:35 Constitutional: Negative for fever, chills, and weight loss, Eyes: Negative for injury, snw pain, redness, and discharge, ENT: Negative for injury, pain, and discharge, Neck: Negative for injury, pain, and swelling, Cardiovascular: Negative for chest pain, palpitations, and edema, Respiratory: Negative for shortness of breath, cough, wheezing, and pleuritic chest pain, Abdomen/GI: Negative for abdominal pain, nausea, vomiting, diarrhea, and constipation, Back: Negative for injury and pain, : Negative for injury, bleeding, discharge, and swelling, Skin: Negative for injury, rash, and discoloration, Neuro: Negative for headache, weakness, numbness, tingling, and seizure, Psych: Negative for depression, anxiety, suicide ideation, homicidal ideation, and hallucinations. 01:35 MS/extremity: Positive for injury or acute deformity, decreased range of motion, pain, swelling, tenderness, of the dorsum of right foot and right lateral malleolus. Exam: 01:34 Constitutional: This is a well developed, well nourished patient who is awake, alert, snw and in no acute distress. Head/Face: Normocephalic, atraumatic. Eyes: Pupils equal round and reactive to light, extra-ocular motions intact. Lids and lashes normal. Conjunctiva and sclera are non-icteric and not injected. Cornea within normal limits. Periorbital areas with no swelling, redness, or edema. ENT: Nares patent. No nasal discharge, no septal abnormalities noted. Tympanic membranes are normal and external auditory canals are clear. Oropharynx with no redness, swelling, or masses, exudates, or evidence of obstruction, uvula midline. Mucous membranes moist. Neck: Trachea midline, no thyromegaly or masses palpated, and no cervical lymphadenopathy. Supple, full range of motion without nuchal rigidity, or vertebral point tenderness. No Meningismus. Chest/axilla: Normal chest wall appearance and motion. Nontender with no deformity. No lesions are appreciated. Cardiovascular: Regular rate and rhythm with a normal S1 and S2. No gallops, murmurs, or rubs. Normal PMI, no JVD. No pulse deficits. Respiratory: Lungs have equal breath sounds bilaterally, clear to auscultation and percussion. No rales, rhonchi or wheezes noted. No increased work of breathing, no retractions or nasal flaring. Abdomen/GI: Soft, non-tender, with normal bowel sounds. No distension or tympany. No guarding or rebound. No evidence of tenderness throughout. Back: No spinal tenderness. No costovertebral tenderness. Full range of motion. Skin: Warm, dry with normal turgor. Normal color with no rashes, no lesions, and no evidence of cellulitis. Neuro: Awake and alert, GCS 15, oriented to person, place, time, and situation. Cranial nerves II-XII grossly intact. Motor strength 5/5 in all extremities. Sensory grossly intact. Cerebellar exam normal. Normal gait. Psych: Awake, alert, with orientation to person, place and time. Behavior, mood, and affect are within normal limits. 01:34 Musculoskeletal/extremity: Extremities: grossly normal except: noted in the right lateral malleolus, right medial malleolus and dorsum of right foot: decreased ROM, swelling, tenderness, ROM: limited active range of motion due to pain, Circulation is intact in all extremities. Severe pain noted. Compartment Syndrome exam of affected extremity: is normal. Vital Signs: 01:20 BP 150 / 94; Pulse 79; Resp 18; Temp 97.3(TE); Pulse Ox 100% on R/A; Weight 83.91 kg lp1 (R); Height 5 ft. 3 in. (160.02 cm); Pain 9/10; 02:34 BP 127 / 76; Pulse 72; Resp 18; Pulse Ox 100% on R/A; lp1 01:20 Body Mass Index 32.77 (83.91 kg, 160.02 cm) lp1 MDM: 01:32 Patient medically screened. snw 01:33 Data reviewed: vital signs, nurses notes. Data interpreted: Pulse oximetry: on room air snw is 98 %. Interpretation: normal. Counseling: I had a detailed discussion with the patient and/or guardian regarding: the historical points, exam findings, and any diagnostic results supporting the discharge/admit diagnosis, the need for outpatient follow up, to return to the emergency department if symptoms worsen or persist or if there are any questions or concerns that arise at home. Special discussion: Based on the history and exam findings, there is no indication for further emergent testing or inpatient evaluation. I discussed with the patient/guardian the need to see the orthopedic surgeon for further evaluation of the symptoms. Administered Medications: 01:49 Drug: fentaNYL (PF) 50 mcg Route: IM; Site: left gluteus; lp1 02:33 Follow up: Response: Marked relief of symptoms; Pain is decreased lp1 01:49 Drug: Valium 5 mg Route: PO; lp1 02:33 Follow up: Response: Marked relief of symptoms lp1 Disposition: 06:41 Co-signature as Attending Physician, Perez Ceja MD I agree with the assessment and tw4 plan of care. Disposition: 10/09/19 01:32 Discharged to Home. Impression: Pain in right ankle and joints of right foot. - Condition is Stable. - Discharge Instructions: Joint Pain, Cast or Splint Care, Adult, Musculoskeletal Pain, RICE for Routine Care of Injuries, Ankle Pain, Cryotherapy, Heat Therapy. - Prescriptions for orphenadrine citrate 100 mg Oral Tablet Sustained Release - take 1 tablet by ORAL route 2 times per day As needed; 20 tablet. - Medication Reconciliation Form, Thank You Letter, Antibiotic Education, Prescription Opioid Use, Work release form form. - Follow up: Emergency Department; When: As needed; Reason: Worsening of condition. Follow up: Robby Owen MD; When: 2 - 3 days; Reason: Recheck today's complaints, Continuance of care, Re-evaluation by your physician. - Notes: Continue Mobic as directed. Signatures: Krystle García, SUPERVISOR MICROWAVE-C SUPERVISOR MICROWAVE-Csnw Christal Li RN RN lp1 Perez Ceja MD MD tw4 Corrections: (The following items were deleted from the chart) 02:48 01:32 10/09/2019 01:32 Discharged to Home. Impression: Pain in right ankle and joints lp1 of right foot. Condition is Stable. Forms are Medication Reconciliation Form, Thank You Letter, Antibiotic Education, Prescription Opioid Use. Follow up: Emergency Department; When: As needed; Reason: Worsening of condition. Follow up: Robby Owen; When: 2 - 3 days; Reason: Recheck today's complaints, Continuance of care, Re-evaluation by your physician. snw
[2019-10-09] MEDS ORDERED: FENTANYL CITR 100 MCG/2 ML ONE (01:51)
[2019-10-09] MEDS ORDERED: DIAZEPAM 5 MG TABLET ONE (01:51)
--- NOTE | 2019-10-09 02:48 | ER ---
Nurse's Notes [facility] Name: Daniela Medellin Age: 44 yrs Sex: Female : 1975 Arrival Date: 10/09/2019 Time: 01:10 Bed 23 Private MD: Diagnosis: Pain in right ankle and joints of right foot Presentation: 10/08 01:20 Chief complaint: Patient states: Pain to right ankle that is worsening; Wearing a boot lp1 to right leg after sprain that occurred on Sunday, seen by Dr. Owen and prescribed Meloxicam; Patient states unable to tolerate pain to right ankle. 01:20 Coronavirus screen: Proceed with normal triage. Ebola Screen: No symptoms or risks lp1 identified at this time. Initial Sepsis Screen: Does the patient meet any 2 criteria? No. Patient's initial sepsis screen is negative. Does the patient have a suspected source of infection? No. Patient's initial sepsis screen is negative. Risk Assessment: Do you want to hurt yourself or someone else? Patient reports no desire to harm self or others. Onset of symptoms was October 09, 2019. 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 - Social history:: Smoking status: Patient denies any tobacco usage or history of. Screenin:54 Abuse screen: Denies threats or abuse. Denies injuries from another. Nutritional lp1 screening: No deficits noted. Tuberculosis screening: No symptoms or risk factors identified. Fall Risk None identified. Assessment: 01:53 General: Appears uncomfortable, Behavior is appropriate for age. Pain: Complains of lp1 pain in right ankle Pain currently is 9 out of 10 on a pain scale. Aggravated by repositioning, weight bearing. Neuro: Level of Consciousness is awake, alert, obeys commands. Cardiovascular: Patient's skin is warm and dry. Respiratory: Respiratory effort is even, unlabored. GI: No signs and/or symptoms were reported involving the gastrointestinal system. : No signs and/or symptoms were reported regarding the genitourinary system. EENT: No signs and/or symptoms were reported regarding the EENT system. Derm: Skin is pink, warm \T\ dry. Musculoskeletal: Circulation, motion, and sensation intact. Capillary refill < 3 seconds, in right toes. Reports pain in right ankle. 02:34 Reassessment: Patient is alert, oriented x 3, equal unlabored respirations, skin lp1 warm/dry/pink. Patient states feeling better. Patient states symptoms have improved. Vital Signs: 01:20 BP 150 / 94; Pulse 79; Resp 18; Temp 97.3(TE); Pulse Ox 100% on R/A; Weight 83.91 kg lp1 (R); Height 5 ft. 3 in. (160.02 cm); Pain 9/10; 02:34 BP 127 / 76; Pulse 72; Resp 18; Pulse Ox 100% on R/A; lp1 01:20 Body Mass Index 32.77 (83.91 kg, 160.02 cm) lp1 ED Course: 01:10 Patient arrived in ED. cl3 01:20 Krystle Garc[facility]-C [facility]. snw 01:20 Perez Ceja MD is Attending Physician. snw 01:30 Arm band placed on. lp1 01:32 Robby Owen MD is Referral Physician. snw 01:40 Christal iL, DARIUS is Primary Nurse. lp1 01:52 Triage completed. lp1 01:54 No provider procedures requiring assistance completed. Patient did not have IV access lp1 during this emergency room visit. 01:59 Patient has correct armband on for positive identification. lp1 Administered Medications: 01:49 Drug: fentaNYL (PF) 50 mcg Route: IM; Site: left gluteus; lp1 02:33 Follow up: Response: Marked relief of symptoms; Pain is decreased lp1 01:49 Drug: Valium 5 mg Route: PO; lp1 02:33 Follow up: Response: Marked relief of symptoms lp1 Outcome: 01:32 Discharge ordered by . snw 02:30 Discharged to home via wheelchair, with family. lp1 02:30 Condition: good 02:30 Discharge instructions given to patient, Instructed on discharge instructions, follow up and referral plans. medication usage, Demonstrated understanding of instructions, follow-up care, medications, Prescriptions given X 1. 02:30 Patient left the ED. lp1 Signatures: Krystle García FNP-C SENIOR RELATIONSHIP MANAGER-Christal Scruggs RN RN lp1 Nilson Razo cl3 Corrections: (The following items were deleted from the chart) 02:46 01:20 BP 150 / 94; Pulse 79bpm; Resp 18bpm; Pulse Ox 100% RA; 83.91 kg Reported; Height lp1 5 ft. 3 in.; BMI: 32.7; Pain 9/10; lp1 02:48 02:48 Patient left the ED. lp1 lp1
[2019-10-09 02:57] VITALS: TEMP 97.3; O2SAT 100
[2019-10-09 03:15] VITALS: BP 127/76
== END 2019-10-09 02:48 | disposition home or self-care (01) ==
LOC: ER 01:08
DX: M25.571 Pain in right ankle and joints of right foot (principal); I10 Essential (primary) hypertension; G40.909 Epilepsy, unspecified, not intractable, without status epilepticus
CPT/HCPCS: 96372; 99283; J3010

== ENCOUNTER 2022-11-22 05:46 | Emergency (ER) | payer OTHER ==
--- OUTSIDE RECORDS SUMMARY | 2022-11-22 05:52 | XMS REPORT | Continuity of Care Document ---
:1975 Author Organization [facility] t Address [address] [place] [address] [place] [id number] Care Team Providers Name Role Phone DILEEP ABRAMS Primary Care Physician Unavailable ACE CARRASCO Attending Clinician Unavailable ACE CARRASCO Attending Clinician Unavailable CELSA DONNELLY Attending Clinician Unavailable JUDIT_NICHOLE_SUE Attending Clinician Unavailable TAMIKA DENNY Attending Clinician Unavailable DILEEP ABRAMS Attending Clinician Unavailable Mele Pinon DO Attending Clinician Lindsey Sierra MD Attending Clinician Dileep Abrams MD Attending Clinician Doctor Unassigned, [place] Attending Clinician Unavailable 2, [facility] Attending Clinician Unavailable Tamika Denny MD Attending Clinician Lab, [facility] Pob I Attending Clinician Unavailable Vesta Medrano Attending Clinician Rina Dwyer RN Attending Clinician Unavailable Pob[facility], [facility] Attending Clinician Unavailable JESSICA GUTIERREZ Attending Clinician Unavailable LINDSEY SIERRA Attending Clinician Unavailable YANCY SHUKLA Attending Clinician Unavailable Sulma Reed MD Attending Clinician SULMA REED Attending Clinician Unavailable Yancy Vee Attending Clinician Jacek Conklin MD Attending Clinician [facility] Neurology Continuity Attending Clinician Unavail able Monica Roberts MD Attending Clinician VENKAT Admitting Clinician Unavailable LINDSEY SIERRA Admitting Clinician Unavailable Armando ESQUIVEL, Monica Admitting Clinician Payers Payer Name Policy Type Policy Number Effective Date Expiration Date Modesto LÓPEZ [facility] [id number] 2019 MEDICAID 00:00:00 MEDICAID [facility] [id number] 2019 00:00:00 Problems Condition Condition Condition Status Onset Resolution Last Treating Co mments Source Name Details Category Date Date Treatment Clinician Date Seizure Seizure Disease Active Univers 8- ity of 00:00: [place] [address] Medical Branch Well woman Well woman Disease Active U nivers exam exam 10-17 ity of 00:00: [place] [address] Medical Branch Encounter Encounter Disease Active Uni vers for for 10-17 ity of contracept [place] arnaud arnaud 00 Medical management management Br anch , , unspecifie unspecifie d type d type Elevated Elevated Disease Active Unive rs blood blood 10-17 ity of pressure pressure 00:00: [place] reading reading 00 Medical without without Branch diagnosis diagnosis of of hypertensi hypertensi on on Breast Breast Disease Active Univers lump lump 10-17 ity of 00:00: [place] [address] Medical Branch Encounter Encounter Disease Active Uni vers for for 10-17 ity of contracept [place]pt [place] ar[place]ud arnaud 00 Medical management management Br anch , , unspecifie unspecifie d type d type Screening Screening Disease Active Uni vers examinatio examinatio 03-04 it y of n for STD n for STD 00:00: [place] s (sexually (sexually 00 Medi krystal transmitte transmitte Br anch d disease) d disease) Class 1 Class 1 Disease Active Overview: Univ ers obesity obesity 03-04 ICD10 ity of with body with body 00:00: [place] mass index mass index 00 Term Me dical (BMI) of (BMI) of 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 30.0 to 30.0 to Utility 30.9 in 30.9 in adult, adult, unspecifie unspecifie d obesity d obesity type, type, unspecifie unspecifie d whether d whether serious serious comorbidit comorbidit y present y present History of History of Disease Active U nivers bilateral bilateral 9-24 ity of tubal tubal 00:00: [place] ligation ligation 00 Medica l Branch Allergies, Adverse Reactions, Alerts Allergy Allergy Status Severity Reaction(s) Onset Inactive Treating Comm ents Source Name Type Date Date Clinician Iodine Propensi Active Itching 2019-06 Univers ty to 0-20 ity of adverse 00:00: [place] reaction 00 Medical s Branch IODINE DRUG Active Anaphylaxis 2019-06 Unive rs INGREDI 0-20 ity of 00:00: [place] 00 Medical Branch Shrimp Propensi Active Unknown - Unive rs ty to See comments 02-06 ity of adverse 00:00: [place] reaction 00 Medical s Branch SHRIMP DRUG Active Unknown-Cmnt Univ ers INGREDI 8 ity of 00:00: [place] 00 Medical Branch Social History Social Habit Start Date Stop Date Quantity Comments Source Exposure to Not sure [facility] SARS-CoV-2 [facility] (event) Branch Tobacco use and 2020-03-30 2020-03-30 Never used Universit y of exposure 00:00:00 00:00:00 [facility] Alcohol intake 2020-03-30 2020-03-30 Current University of 00:00:00 00:00:00 non-drinker of [facility] alcohol Branch (finding) Sex [birth year] Universit y of 00:00:00 00:00:00 [facility] Smoking Status Start Date Stop Date Source Never smoker [facility] Medications Ordered Filled Start Stop Current Ordering Indication Dosage Frequency Signature Comments Components Source Medication Medication Date Date Medication? Clinician (SIG) Name Name potassium 2020- No 10meq 10 mEq, IV Univers chloride in 08-10 Piggyback, i ty of water 10 17:30: 18:59 Q1H, 2 [place] mEq/100 mL 00 :00 doses, Medical RTU 10 mEq First dose Bra nch on Sun08/10/20 at 1130, Last dose on Sun08/10/20 at 1200, 100 mL KCL 2020- No 40meq 40 mEq, Univers (KLOR-CON 08-10 Oral, ity of M20) tablet 17:30: 16:32 ONCE, 1 [place] 40 mEq 00 :00 dose, [facility] Medical 08/10/20 at Branch 1130, GRACE diphenhydrA 2020- No 25mg 25 mg, Uni vers MINE 08-10 Slow IV ity of (BENADRYL) 17:15: 16:24 Push, [place] injection 00 :00 ONCE, 1 Medical 25 mg dose, [facility] 08/10/20 at 1115, STAT ketorolac 2020- No 30mg 30 mg, Unive rs (TORADOL) 08-10 Slow IV ity of injection 17:15: 16:24 Push, [place] 30 mg 00 :00 ONCE, 1 Medical dose, [facility] 08/10/20 at 1115, Routine
member of technical staff approving Restricted medication : LINDSEY SIERRA metoclopram 2020- No 10mg 10 mg, Uni vers sydni HCl 08-10 Slow IV ity of (REGLAN) 16:30: 15:32 Push, [place] injection 00 :00 ONCE, 1 Medical 10 mg dose, [facility] 08/10/20 at 1030, GRACE ondansetron Yes [id number] 4mg Take 1 Univers 4 mg 3-02 tablet by ity of disintegrat 00:00: mouth [place] ing tablet 00 every 4 Medica l (four) Branch hours as needed for Nausea and Vomiting (N/V). KCL 20 mEq Yes [id number] 40meq Take 2 Univers tablet 3-02 tablets by ity of 00:00: mouth [place] 00 daily. [facility] Branch Butalbital- Yes [id number] 1{capsu Take 1 Univers Acetaminoph 3-02 le} capsule by it y of en-Caff 00:00: mouth [place] (FIORICET) 00 every 6 Medica l 50-300-40 (six) Branch mg per hours as capsule needed for Pain (scale 4-6). ondansetron Yes [id number] 4mg Take 1 Univers 4 mg 3-02 tablet by ity of disintegrat 00:00: mouth [place] ing tablet 00 every 4 Medica l (four) Branch hours as needed for Nausea and Vomiting (N/V). KCL 20 mEq Yes [id number] 40meq Take 2 Univers tablet 3-02 tablets by ity of 00:00: mouth [place] 00 daily. [facility] Branch [facility]- Yes [id number] 1{capsu Take 1 Univers Acetaminoph 3-02 le} capsule by it y of en-Caff 00:00: mouth [place] (FIORICET) 00 every 6 Medica l 50-300-40 (six) Branch mg per hours as capsule needed for Pain (scale 4-6). [facility]- 2020- No [id number] 1{capsu Take 1 Univers Acetaminoph 3-02 03-02 le} capsule by i ty of en-Caff 00:00: 00:00 mouth [place] (FIORICET) 00 :00 every 6 Medica l 50-300-40 (six) Branch mg per hours as capsule needed for Pain (scale 4-6). [facility]2020- No [id number] 1{capsu Take 1 Univers Acetaminoph 3-02 03-02 le} capsule by i ty of en-Caff 00:00: 00:00 mouth [place] (FIORICET) 00 :00 every 6 Medica l 50-300-40 (six) Branch mg per hours as capsule needed for Pain (scale 4-6). cetirizine 2019-06 Yes cetirizine U nivers 10 mg 0-06 10 mg ity of tablet 14:38: tablet [address] [place] [address] calcium 2019-06 Yes Take by Univers carbonate/v 0-06 mouth. ity of itamin D3 14:38: (CALCIUM 27 Medical 500 + D, Branch D3, ORAL) cetirizine 2019-06 Yes cetirizine U nivers 10 mg 0-06 10 mg ity of tablet 14:38: tablet [place] [facility] calcium 2019-06 Yes Take by Univers carbonate/v 0-06 mouth. ity of itamin D3 14:38: (CALCIUM 27 Medical 500 + D, Branch D3, ORAL) cetirizine 2019-06 Yes cetirizine U nivers 10 mg 0-06 10 mg ity of tablet 14:38: tablet [address] calcium 2019-06 Yes Take by Univers carbonate/v 0-06 mouth. ity of itamin D3 14:38: [place] (CALCIUM 27 Medical 500 + D, Branch D3, ORAL) cetirizine 2019-06 Yes cetirizine U nivers 10 mg 0-06 10 mg ity of tablet 14:38: tablet [address] calcium 2019-06 Yes Take by Univers carbonate/v 0-06 mouth. ity of itamin D3 14:38: [place] (CALCIUM 27 Medical 500 + D, Branch D3, ORAL) cetirizine 2019-06 Yes cetirizine U nivers 10 mg 0-06 10 mg ity of tablet 14:38: tablet [address] calcium 2019-06 Yes Take by Univers carbonate/v 0-06 mouth. ity of itamin D3 14:38: [place] (CALCIUM 27 Medical 500 + D, Branch D3, ORAL) cetirizine 2019-06 Yes cetirizine U nivers 10 mg 0-06 10 mg ity of tablet 14:38: tablet [address] calcium 2019-06 Yes Take by Univers carbonate/v 0-06 mouth. ity of itamin D3 14:38: [place] (CALCIUM 27 Medical 500 + D, Branch D3, ORAL) cetirizine 2019-06 Yes cetirizine U nivers 10 mg 0-06 10 mg ity of tablet 14:38: tablet [address] calcium 2019-06 Yes Take by Univers carbonate/v 0-06 mouth. ity of itamin D3 14:38: [place] (CALCIUM 27 Medical 500 + D, Branch D3, ORAL) cetirizine 2019-06 Yes cetirizine U nivers 10 mg 0-06 10 mg ity of tablet 14:38: tablet [address] calcium 2019-06 Yes Take by Univers carbonate/v 0-06 mouth. ity of itamin D3 14:38: [place] (CALCIUM 27 Medical 500 + D, Branch D3, ORAL) cetirizine 2019-06 Yes cetirizine U nivers 10 mg 0-06 10 mg ity of tablet 14:38: tablet [address] calcium 2019-06 Yes Take by Univers carbonate/v 0-06 mouth. ity of itamin D3 14:38: [place] (CALCIUM 27 Medical 500 + D, Branch D3, ORAL) cetirizine 2019-06 Yes cetirizine U nivers 10 mg 0-06 10 mg ity of tablet 14:38: tablet [address] calcium 2019-06 Yes Take by Univers carbonate/v 0-06 mouth. ity of itamin D3 14:38: [place] (CALCIUM 27 Medical 500 + D, Branch D3, ORAL) cetirizine 2019-06 Yes cetirizine U nivers 10 mg 0-06 10 mg ity of tablet 14:38: tablet [address] calcium 2019-06 Yes Take by Univers carbonate/v 0-06 mouth. ity of itamin D3 14:38: [place] (CALCIUM 27 Medical 500 + D, Branch D3, ORAL) cetirizine 2019-06 Yes cetirizine U nivers 10 mg 0-06 10 mg ity of tablet 14:38: tablet [address] calcium 2019-06 Yes Take by Univers carbonate/v 0-06 mouth. ity of itamin D3 14:38: [place] (CALCIUM 27 Medical 500 + D, Branch D3, ORAL) cetirizine 2019-06 Yes cetirizine U nivers 10 mg 0-06 10 mg ity of tablet 14:38: tablet [address] calcium 2019-06 Yes Take by Univers carbonate/v 0-06 mouth. ity of itamin D3 14:38: [place] (CALCIUM 27 Medical 500 + D, Branch D3, ORAL) ASHLYNA Yes TK 1 T PO Unive rs 0.15 mg-30 9-08 QD ity of mcg (84)/10 00:00: [place] mcg (7) per 00 Medical tablet [place] ASHLYNA Yes TK 1 T PO Unive rs 0.15 mg-30 9-08 QD ity of mcg (84)/10 00:00: [place] mcg (7) per 00 Medical tablet [place] ASHLYNA Yes TK 1 T PO Unive rs 0.15 mg-30 9-08 QD ity of mcg (84)/10 00:00: [place] mcg (7) per 00 Medical tablet Branch ASHLYNA Yes TK 1 T PO Unive rs 0.15 mg-30 9-08 QD ity of mcg (84)/10 00:00: [place] mcg (7) per 00 Medical tablet [place] ASHLYNA Yes TK 1 T PO Unive rs 0.15 mg-30 9-08 QD ity of mcg (84)/10 00:00: [place] mcg (7) per 00 Medical tablet [place] ASHLYNA 2020-0 Yes TK 1 T PO Unive rs 0.15 mg-30 9-08 QD ity of mcg (84)/10 00:00: [place] mcg (7) per 00 Medical tablet Branch PORTIALYNA Yes TK 1 T PO Unive rs 0.15 mg-30 9-08 QD ity of mcg (84)/10 00:00: [place] mcg (7) per 00 Medical tablet Branch PORTIALY Yes TK 1 T PO Unive rs 0.15 mg-30 9-08 QD ity of mcg (84)/10 00:00: [place] mcg (7) per 00 Medical tablet Branch [facility] Yes TK 1 T PO Unive rs 0.15 mg-30 9-08 QD ity of mcg (84)/10 00:00: [place] mcg (7) per 00 Medical tablet Branch PORTIALY Yes TK 1 T PO Unive rs 0.15 mg-30 9-08 QD ity of mcg (84)/10 00:00: [place] mcg (7) per 00 Medical tablet Branch [facility] Yes TK 1 T PO Unive rs 0.15 mg-30 9-08 QD ity of mcg (84)/10 00:00: [place] mcg (7) per 00 Medical tablet Branch PORTIALY Yes TK 1 T PO Unive rs 0.15 mg-30 9-08 QD ity of mcg (84)/10 00:00: [place] mcg (7) per 00 Medical tablet Branch PORTIALYNA Yes TK 1 T PO Unive rs 0.15 mg-30 9-08 QD ity of mcg (84)/10 00:00: [place] mcg (7) per Medical tablet Branch ondansetron 2020- No 4mg 4 mg, Univ ers (ZOFRAN-ODT 5-20 05-20 Oral, ity of ) 12:45: 11:55 ONCE, 1 [place] disintegrat 00 :00 dose, Wed Med ical ing tablet 10/29/19 at [facility] 4 mg 0745, Routine HYDROcodone 2020- No 1{tbl} 1 tablet, Univers -acetaminop 5-20 05-20 Oral, ity of hen (NORCO 12:45: 11:56 ONCE, 1 [place] as 5) 5-325 mg 00 :00 dose, Wed Med ical tablet 1 20/20 at [facility] h tablet 0745, GRACE ondansetron 2020-0 Yes [id number] 4mg Take 1 Univers 4 mg 5-20 [id number] tablet by ity of disintegrat 00:00: mouth [place] ing tablet 00 every 4 Medica l (four) Branch hours as needed for Nausea and Vomiting (N/V). ondansetron 2020-0 Yes [id number] 4mg Take 1 Univers 4 mg 5-20 [id number] tablet by ity of disintegrat 00:00: mouth [place] ing tablet 00 every 4 Medica l (four) Branch hours as needed for Nausea and Vomiting (N/V). ondansetron 2020-0 Yes [id number] 4mg Take 1 Univers 4 mg 5-20 [id number] tablet by ity of disintegrat 00:00: mouth [place] ing tablet 00 every 4 Medica l (four) Branch hours as needed for Nausea and Vomiting (N/V). ondansetron 2019-0 Yes [id number] 4mg Take 1 Univers 4 mg 5-20 [id number] tablet by ity of disintegrat 00:00: mouth [place] ing tablet 00 every 4 Medica l (four) Branch hours as needed for Nausea and Vomiting (N/V). ondansetron 2020-0 Yes [id number] 4mg Take 1 Univers 4 mg 5-20 [id number] tablet by ity of disintegrat 00:00: mouth [place] ing tablet 00 every 4 Medica l (four) Branch hours as needed for Nausea and Vomiting (N/V). ondansetron 2019-0 2020- No [id number] 4mg Take 1 Univers 4 mg 5-20 10-06 [id number] tablet by ity of disintegrat 00:00: 00:00 [place] tablet 00 :00 every 4 Medica l (four) Branch hours as needed for Nausea and Vomiting (N/V). ondansetron 2020-0 2020- No [id number] 4mg Take 1 Univers 4 mg 5-20 10-06 [id number] tablet by ity of disintegrat 00:00: 00:00 [place] tablet 00 :00 every 4 Medica l (four) Branch hours as needed for Nausea and Vomiting (N/V). meloxicam 2019-0 2020- No [id number] 15mg Take 1 U nivers 15 mg 4-28 05-29 tablet by ity of tablet 00:00: 04:59 mouth [place] 00 :00 daily for Medical 30 days. Branch meloxicam 2019-0 2020- No [id number] 15mg Take 1 U nivers 15 mg 4-28 05-29 tablet by ity of tablet 00:00: 04:59 mouth [place] 00 :00 daily for Medical 30 days. Branch meloxicam 2019-0 2020- No [id number] 15mg Take 1 U nivers 15 mg 4-28 05-29 tablet by ity of tablet 00:00: 04:59 mouth [place] 00 :00 daily for Medical 30 days. Branch meloxicam 2019-0 2020- No [id number] 15mg Take 1 U nivers 15 mg 4-28 05-29 tablet by ity of tablet 00:00: 04:59 mouth [place] 00 :00 daily for Medical 30 days. Branch meloxicam 2019- 2020- No [id number] 15mg Take 1 U nivers 15 mg 4-28 05-29 tablet by ity of tablet 00:00: 04:59 mouth [place] 00 :00 daily for Medical 30 days. Branch meloxicam 0 2020- No [id number] 15mg Take 1 U nivers 15 mg 4-28 05-29 tablet by ity of tablet 00:00: 04:59 mouth [place] 00 :00 daily for Medical 30 days. Branch meloxicam 2019-0 2020- No [id number] 15mg Take 1 U nivers 15 mg 4-28 05-29 tablet by ity of tablet 00:00: 04:59 mouth [place] 00 :00 daily for Medical 30 days. Branch meloxicam 2019-0 2020- No [id number] 15mg Take 1 U nivers 15 mg 4-28 05-29 tablet by ity of tablet 00:00: 04:59 mouth [place] 00 :00 daily for Medical 30 days. Branch meloxicam 0 2020- No [id number] 15mg Take 1 U nivers 15 mg 4-28 05-29 tablet by ity of tablet 00:00: 04:59 mouth [place] 00 :00 daily for Medical 30 days. [place] losartan-hy 2019-0 Yes 1{tbl} Take 1 Un semaj drochloroth 3-30 tablet by ity of iazide 00:00: mouth [place] 100-25 mg 00 every Medical per tablet other day. [facility] losartan-hy 2020-0 Yes 1{tbl} Take 1 Un semaj drochloroth 3-30 tablet by ity of iazide 00:00: mouth [place] 100-25 mg 00 every Medical per tablet other day. [facility] losartan-hy 2020-0 Yes 1{tbl} Take 1 Un semaj drochloroth 3-30 tablet by ity of iazide 00:00: mouth [place] 100-25 mg 00 every Medical per tablet other day. [facility] losartan-hy 2020-0 Yes 1{tbl} Take 1 Un semaj drochloroth 3-30 tablet by ity of iazide 00:00: mouth [place] 100-25 mg 00 every Medical per tablet other day. [facility] losartan-hy 2020-0 Yes 1{tbl} Take 1 Un semaj drochloroth 3-30 tablet by ity of iazide 00:00: mouth [place] 100-25 mg 00 every Medical per tablet other day. [facility] losartan-hy 2020-0 Yes 1{tbl} Take 1 Un semaj drochloroth 3-30 tablet by ity of iazide 00:00: mouth [place] 100-25 mg 00 every Medical per tablet other day. [facility] losartan-hy 2020-0 Yes 1{tbl} Take 1 Un semaj drochloroth 3-30 tablet by ity of iazide 00:00: mouth [place] 100-25 mg 00 every Medical per tablet other day. [facility] losartan-hy 2020-0 Yes 1{tbl} Take 1 Un semaj drochloroth 3-30 tablet by ity of iazide 00:00: mouth [place] 100-25 mg 00 every Medical per tablet other day. [facility] losartan-hy 2020-0 Yes 1{tbl} Take 1 Un semaj drochloroth 3-30 tablet by ity of iazide 00:00: mouth [place] 100-25 mg 00 every Medical per tablet other day. [facility] losartan-hy 2020-0 Yes 1{tbl} Take 1 Un semaj drochloroth 3-30 tablet by ity of iazide 00:00: mouth [place] 100-25 mg 00 every Medical per tablet other day. [facility] losartan-hy 2020-0 Yes 1{tbl} Take 1 Un semaj drochloroth 3-30 tablet by ity of iazide 00:00: mouth [place] 100-25 mg 00 every Medical per tablet other day. [facility] losartan-hy 2020-0 Yes 1{tbl} Take 1 Un semaj drochloroth 3-30 tablet by ity of iazide 00:00: mouth [place] 100-25 mg 00 every Medical per tablet other day. [facility] losartan-hy 2020-0 Yes 1{tbl} Take 1 Un semaj drochloroth 3-30 tablet by ity of iazide 00:00: mouth [place] 100-25 mg 00 every Medical per tablet other day. [facility] dicyclomine 2019-0 2020- No 20mg 20 mg, Uni vers (BENTYL) 09-05 Intramuscu ity of injection 12:30: 11:30 [place], ONCE, [place] 20 mg 00 :00 1 dose, Medical Sat Branch 09/06/19 at 0730, Routine ondansetron 2019-0 2020- No 4mg 4 mg, Slow Univers (ZOFRAN 09-05 IV Push, ity of (PF)) 12:00: 10:48 ONCE, 1 [place] injection 4 00 :00 dose, Sat Med ical mg 09/06/19 at Branch 0700, GRACE NaCl 0.9% 2019-0 Yes 1000mL at 999 Univ ers (NS) IV 3-28 mL/hr, ity of infusion 11:30: Intravenou [place] as 1,000 mL 00 s, Medical CONTINUOUS Branch , Starting 09/06/19 at 0630, Until Discontinu ed, Routine ondansetron 2020-0 Yes [id number] 4mg Take 1 Univers (ZOFRAN) 4 3-28 tablet by ity of mg tablet 00:00: mouth [place] 00 every 8 Medical (eight) Branch hours as needed for Nausea and Vomiting (N/V). dicyclomine 2020-0 Yes [id number] 20mg Take 1 Univers 20 mg 3-28 tablet by ity of tablet 00:00: mouth [place] 00 every 6 Medical (six) Branch hours as needed for Abdominal pain. pantoprazol 2020-0 Yes [id number] 40mg Take 1 Univers e 3-28 tablet by ity of (PROTONIX) 00:00: mouth [place] 40 mg EC 00 daily. Medical tablet Branch ondansetron 2020-0 Yes [id number] 4mg Take 1 Univers (ZOFRAN) 4 3-28 tablet by ity of mg tablet 00:00: mouth [place] 00 every 8 Medical (eight) Branch hours as needed for Nausea and Vomiting (N/V). dicyclomine 2020-0 Yes [id number] 20mg Take 1 Univers 20 mg 3-28 tablet by ity of tablet 00:00: mouth [place] 00 every 6 Medical (six) Branch hours as needed for Abdominal pain. pantoprazol 2020-0 Yes [id number] 40mg Take 1 Univers e 3-28 tablet by ity of (PROTONIX) 00:00: mouth [place] 40 mg EC 00 daily. Medical tablet Branch ondansetron 2020-0 Yes [id number] 4mg Take 1 Univers (ZOFRAN) 4 3-28 tablet by ity of mg tablet 00:00: mouth [place] 00 every 8 Medical (eight) Branch hours as needed for Nausea and Vomiting (N/V). dicyclomine 2020-0 Yes [id number] 20mg Take 1 Univers 20 mg 3-28 tablet by ity of tablet 00:00: mouth [place] 00 every 6 Medical (six) Branch hours as needed for Abdominal pain. pantoprazol 2020-0 Yes [id number] 40mg Take 1 Univers e 3-28 tablet by ity of (PROTONIX) 00:00: mouth [place] 40 mg EC 00 daily. Medical tablet Branch ondansetron 2020-0 Yes [id number] 4mg Take 1 Univers (ZOFRAN) 4 3-28 tablet by ity of mg tablet 00:00: mouth [place] 00 every 8 Medical (eight) Branch hours as needed for Nausea and Vomiting (N/V). dicyclomine 2020-0 Yes [id number] 20mg Take 1 Univers 20 mg 3-28 tablet by ity of tablet 00:00: mouth [place] 00 every 6 Medical (six) Branch hours as needed for Abdominal pain. pantoprazol 2020-0 Yes [id number] 40mg Take 1 Univers e 3-28 tablet by ity of (PROTONIX) 00:00: mouth [place] 40 mg EC 00 daily. Medical tablet Branch ondansetron 2020-0 Yes [id number] 4mg Take 1 Univers (ZOFRAN) 4 3-28 tablet by ity of mg tablet 00:00: mouth [place] 00 every 8 Medical (eight) Branch hours as needed for Nausea and Vomiting (N/V). dicyclomine 2020-0 Yes [id number] 20mg Take 1 Univers 20 mg 3-28 tablet by ity of tablet 00:00: mouth [place] 00 every 6 Medical (six) Branch hours as needed for Abdominal pain. pantoprazol 2020-0 Yes [id number] 40mg Take 1 Univers e 3-28 tablet by ity of (PROTONIX) 00:00: mouth [place] 40 mg EC 00 daily. Medical tablet Branch ondansetron 2020-0 Yes [id number] 4mg Take 1 Univers (ZOFRAN) 4 3-28 tablet by ity of mg tablet 00:00: mouth [place] 00 every 8 Medical (eight) Branch hours as needed for Nausea and Vomiting (N/V). dicyclomine 2020-0 Yes [id number] 20mg Take 1 Univers 20 mg 3-28 tablet by ity of tablet 00:00: mouth [place] 00 every 6 Medical (six) Branch hours as needed for Abdominal pain. pantoprazol 2020-0 Yes [id number] 40mg Take 1 Univers e 3-28 tablet by ity of (PROTONIX) 00:00: mouth [place] 40 mg EC 00 daily. Medical tablet Branch ondansetron 2020-0 Yes [id number] 4mg Take 1 Univers (ZOFRAN) 4 3-28 tablet by ity of mg tablet 00:00: mouth [place] 00 every 8 Medical (eight) Branch hours as needed for Nausea and Vomiting (N/V). dicyclomine 2020-0 Yes [id number] 20mg Take 1 Univers 20 mg 3-28 tablet by ity of tablet 00:00: mouth [place] 00 every 6 Medical (six) Branch hours as needed for Abdominal pain. pantoprazol 2020-0 Yes [id number] 40mg Take 1 Univers e 3-28 tablet by ity of (PROTONIX) 00:00: mouth [place] 40 mg EC 00 daily. Medical tablet Branch ondansetron 2020-0 Yes [id number] 4mg Take 1 Univers (ZOFRAN) 4 3-28 tablet by ity of mg tablet 00:00: mouth [place] 00 every 8 Medical (eight) Branch hours as needed for Nausea and Vomiting (N/V). dicyclomine 2020-0 Yes [id number] 20mg Take 1 Univers 20 mg 3-28 tablet by ity of tablet 00:00: mouth [place] 00 every 6 Medical (six) Branch hours as needed for Abdominal pain. pantoprazol 2020-0 Yes [id number] 40mg Take 1 Univers e 3-28 tablet by ity of (PROTONIX) 00:00: mouth [place] 40 mg EC 00 daily. Medical tablet Branch ondansetron 2020-0 Yes [id number] 4mg Take 1 Univers (ZOFRAN) 4 3-28 tablet by ity of mg tablet 00:00: mouth [place] 00 every 8 Medical (eight) Branch hours as needed for Nausea and Vomiting (N/V). dicyclomine 2020-0 Yes [id number] 20mg Take 1 Univers 20 mg 3-28 tablet by ity of tablet 00:00: mouth [place] 00 every 6 Medical (six) Branch hours as needed for Abdominal pain. pantoprazol 2020-0 Yes [id number] 40mg Take 1 Univers e 3-28 tablet by ity of (PROTONIX) 00:00: mouth [place] 40 mg EC 00 daily. Medical tablet Branch ondansetron 2020-0 Yes [id number] 4mg Take 1 Univers (ZOFRAN) 4 3-28 tablet by ity of mg tablet 00:00: mouth [place] 00 every 8 Medical (eight) Branch hours as needed for Nausea and Vomiting (N/V). dicyclomine 2020-0 Yes [id number] 20mg Take 1 Univers 20 mg 3-28 tablet by ity of tablet 00:00: mouth [place] 00 every 6 Medical (six) Branch hours as needed for Abdominal pain. pantoprazol 2020-0 Yes [id number] 40mg Take 1 Univers e 3-28 tablet by ity of (PROTONIX) 00:00: mouth [place] 40 mg EC 00 daily. Medical tablet Branch ondansetron 2020-0 Yes [id number] 4mg Take 1 Univers (ZOFRAN) 4 3-28 tablet by ity of mg tablet 00:00: mouth [place] 00 every 8 Medical (eight) Branch hours as needed for Nausea and Vomiting (N/V). dicyclomine 2020-0 Yes [id number] 20mg Take 1 [facility] 20 mg 3-28 tablet by ity of tablet 00:00: mouth [place] 00 every 6 Medical (six) Branch hours as needed for Abdominal pain. pantoprazol 2020-0 Yes [id number] 40mg Take 1 Univers e 3-28 tablet by ity of (PROTONIX) 00:00: mouth [place] 40 mg EC 00 daily. Medical tablet Branch ondansetron 2020-0 Yes [id number] 4mg Take 1 Univers (ZOFRAN) 4 3-28 tablet by ity of mg tablet 00:00: mouth [place] 00 every 8 Medical (eight) Branch hours as needed for Nausea and Vomiting (N/V). dicyclomine 2020-0 Yes [id number] 20mg Take 1 [facility] 20 mg 3-28 tablet by ity of tablet 00:00: mouth [place] 00 every 6 Medical (six) Branch hours as needed for Abdominal pain. pantoprazol 2020-0 Yes [id number] 40mg Take 1 Univers e 3-28 tablet by ity of (PROTONIX) 00:00: mouth [place] 40 mg EC 00 daily. Medical tablet Branch ondansetron 2020-0 Yes [id number] 4mg Take 1 Univers (ZOFRAN) 4 3-28 tablet by ity of mg tablet 00:00: mouth [place] 00 every 8 Medical (eight) Branch hours as needed for Nausea and Vomiting (N/V). dicyclomine 2020-0 Yes [id number] 20mg Take 1 [facility] 20 mg 3-28 tablet by ity of tablet 00:00: mouth [place] 00 every 6 Medical (six) Branch hours as needed for Abdominal pain. pantoprazol 2020-0 Yes [id number] 40mg Take 1 [facility] e 3-28 tablet by ity of (PROTONIX) 00:00: mouth [place] 40 mg EC 00 daily. Medical tablet Branch ondansetron 2020-0 Yes [id number] 4mg Take 1 Univers (ZOFRAN) 4 3-28 tablet by ity of mg tablet 00:00: mouth [place] 00 every 8 Medical (eight) Branch hours as needed for Nausea and Vomiting (N/V). dicyclomine 2020-0 Yes [id number] 20mg Take 1 [facility] 20 mg 3-28 tablet by ity of tablet 00:00: mouth [place] 00 every 6 Medical (six) Branch hours as needed for Abdominal pain. pantoprazol 2020-0 Yes [id number] 40mg Take 1 Univers e 3-28 tablet by ity of (PROTONIX) 00:00: mouth [place] 40 mg EC 00 daily. Medical tablet Branch pantoprazol 2020-0 Yes [id number] 40mg Take 1 Univers e 3-28 tablet by ity of (PROTONIX) 00:00: mouth [place] 40 mg EC 00 daily. Medical tablet Branch pantoprazol 2020-0 Yes [id number] 40mg Take 1 Univers e 3-28 tablet by ity of (PROTONIX) 00:00: mouth [place] 40 mg EC 00 daily. Medical tablet Branch pantoprazol 2020-0 Yes [id number] 40mg Take 1 [facility] e 3-28 tablet by ity of (PROTONIX) 00:00: mouth [place] 40 mg EC 00 daily. Medical tablet Branch pantoprazol 2020-0 Yes [id number] 40mg Take 1 Univers e 3-28 tablet by ity of (PROTONIX) 00:00: mouth [place] 40 mg EC 00 daily. Medical tablet Branch pantoprazol 2020-0 Yes [id number] 40mg Take 1 Univers e 3-28 tablet by ity of (PROTONIX) 00:00: mouth [place] 40 mg EC 00 daily. Medical tablet Branch pantoprazol 2020-0 Yes [id number] 40mg Take 1 Univers e 3-28 tablet by ity of (PROTONIX) 00:00: mouth [place] 40 mg EC 00 daily. Medical tablet Branch pantoprazol 2020-0 Yes [id number] 40mg Take 1 Univers e 3-28 tablet by ity of (PROTONIX) 00:00: mouth [place] 40 mg EC 00 daily. Medical tablet Branch pantoprazol 2020-0 Yes [id number] 40mg Take 1 [facility] e 3-28 tablet by ity of (PROTONIX) 00:00: mouth [place] 40 mg EC 00 daily. Medical tablet Branch pantoprazol 2020-0 Yes [id number] 40mg Take 1 [facility] e 3-28 tablet by ity of (PROTONIX) 00:00: mouth [place] 40 mg EC 00 daily. Medical tablet Branch pantoprazol 2020-0 Yes [id number] 40mg Take 1 [facility] e 3-28 tablet by ity of (PROTONIX) 00:00: mouth [place] 40 mg EC 00 daily. Medical tablet Branch pantoprazol 2020-0 Yes [id number] 40mg Take 1 [facility] e 3-28 tablet by ity of (PROTONIX) 00:00: mouth [place] 40 mg EC 00 daily. Medical tablet Branch pantoprazol 2020-0 Yes [id number] 40mg Take 1 [facility] e 3-28 tablet by ity of (PROTONIX) 00:00: mouth [place] 40 mg EC 00 daily. Medical tablet Branch pantoprazol 2020-0 Yes [id number] 40mg Take 1 [facility] e 3-28 tablet by ity of (PROTONIX) 00:00: mouth [place] 40 mg EC 00 daily. Medical tablet Branch ondansetron 2019- No [id number] 4mg Take 1 Univers (ZOFRAN) 4 3-28 10-06 tablet by ity of mg tablet 00:00: 00:00 mouth [place] 00 :00 every 8 Medical (eight) Branch hours as needed for Nausea and Vomiting (N/V). dicyclomine 2019- No [id number] 20mg Take 1 [facility] 20 mg 3-28 10-06 tablet by ity of tablet 00:00: 00:00 mouth [place] 00 :00 every 6 Medical (six) Branch hours as needed for Abdominal pain. ondansetron 2019- No [id number] 4mg Take 1 Univers (ZOFRAN) 4 3-28 10-06 tablet by ity of mg tablet 00:00: 00:00 mouth [place] 00 :00 every 8 Medical (eight) Branch hours as needed for Nausea and Vomiting (N/V). dicyclomine 2019- No [id number] 20mg Take 1 [facility] 20 mg 3-28 10-06 tablet by ity of tablet 00:00: 00:00 mouth [place] 00 :00 every 6 Medical (six) Branch hours as needed for Abdominal pain. KCL Yes 20meq 20 mEq, Univers (KLOR-CON 02-07 Oral, ity of M20) tablet 14:00: [place]ILY[place] 20 mEq 00 First dose Medical on [place] Branch 02/07/19 at 0900, Until Discontinu ed, Routine gadoterate 2019- No .2mL/kg 15.96 mL Univers meglumine 02-07 (0.2 mL/kg ity of (DOTAREM-20 07:00: 07:00 ?79.8 kg), [place] mL) 00 :00 Intravenou Medical injection s, ONCE, 1 Bran ch 15.96 mL dose, Sun02/07/19 at 0200, Routine levETIRAcet Yes 750mg 750 mg, Un semaj am (KEPPRA) 02-06 Oral, BID, it y of tablet 750 14:30: First dose [place] mg 00 on [place] [facility] 02/06/19 at Branch 0930, Until Discontinu ed, Routine pantoprazol 2018-0 Yes 40mg 40 mg, Univ ers e - Oral, ity of (PROTONIX) 14:00: DAILY, [place] EC tablet 00 First dose Medi krystal 40 mg on [facility] 02/06/19 at 0900, Until Discontinu ed, Routine ibuprofen 2018-0 Yes 600mg 600 mg, Univ ers (IBU) 02-06 Oral, ity of tablet 600 13:52: Q6HPRN, [place] mg 13 Starting Medical [facility] 02/06/19 at 0852, Until Discontinu ed, Routine, Pain scale - 7-10 heparin 2018- Yes 5000U 5,000 Univers injection - Units, ity of 5,000 Units 13:00: Subcutaneo [place] 00 us, Q12H, Medical First dose Branch on [facility] 02/06/19 at 0800, Until Discontinu ed, Routine acetaminoph 2018- Yes 650mg 650 mg, Un semaj en 02-06 Oral, ity of (TYLENOL) 09:53: Q6HPRN, [place] tablet 650 18 Starting Medic al mg [facility] 02/06/19 at 0453, Until Discontinu ed, Routine, Pain (scale 4-6), Temp > 38.5 C docusate 2018- Yes 100mg 100 mg, Unive rs (COLACE) 02-06 Oral, ity of capsule 100 09:53: QDAILYPRN, [place] mg 18 Starting [facility] 02/06/19 at 0453, Until Discontinu ed, Routine, Constipati on foLIC acid 2018-0 Yes [id number] 1mg Take 1 U nivers 1 mg tablet 8-29 tablet by ity of 00:00: mouth [place] 00 daily. Medical Branch levETIRAcet 2018- Yes [id number] 750mg Take 1 Univers am 750 mg 8-29 tablet by ity o f tablet 00:00: mouth 2 [place] 00 (two) Medical times Branch daily. foLIC acid 2019- Yes [id number] 1mg Take 1 U nivers 1 mg tablet 8-29 tablet by ity of 00:00: mouth [place] 00 daily. Medical Branch levETIRAcet 2018- Yes [id number] 750mg Take 1 Univers am 750 mg 8-29 tablet by ity o f tablet 00:00: mouth (two) Medical times Branch daily. foLIC acid 2018- Yes [id number] 1mg Take 1 U nivers 1 mg tablet 8-29 tablet by ity of 00:00: mouth 00 daily. Medical Branch levETIRAcet 2018-0 Yes [id number] 750mg Take 1 Univers am 750 mg 8-29 tablet by ity o f tablet 00:00: mouth (two) Medical times Branch daily. foLIC acid 2018- Yes [id number] 1mg Take 1 U nivers 1 mg tablet 8-29 tablet by ity of 00:00: mouth 00 daily. Medical Branch levETIRAcet 2018- Yes [id number] 750mg Take 1 Univers am 750 mg 8-29 tablet by ity o f tablet 00:00: mouth (two) Medical times Branch daily. foLIC acid Yes [id number] 1mg Take 1 U nivers 1 mg tablet 8-29 tablet by ity of 00:00: mouth 00 daily. Medical Branch levETIRAcet Yes [id number] 750mg Take 1 Univers am 750 mg 8-29 tablet by ity o f tablet 00:00: mouth (two) Medical times Branch daily. foLIC acid Yes [id number] 1mg Take 1 U nivers 1 mg tablet 8-29 tablet by ity of 00:00: mouth 00 daily. Medical Branch levETIRAcet 2018- Yes [id number] 750mg Take 1 Univers am 750 mg 8-29 tablet by ity o f tablet 00:00: mouth (two) Medical times Branch daily. foLIC acid 2018- Yes [id number] 1mg Take 1 U nivers 1 mg tablet 8-29 tablet by ity of 00:00: mouth 00 daily. Medical Branch levETIRAcet 2018-0 Yes [id number] 750mg Take 1 Univers am 750 mg 8-29 tablet by ity o f tablet 00:00: mouth (two) Medical times Branch daily. foLIC acid 2018-0 Yes [id number] 1mg Take 1 U nivers 1 mg tablet 8-29 tablet by ity of 00:00: mouth 00 daily. Medical Branch levETIRAcet 2018-0 Yes [id number] 750mg Take 1 Univers am 750 mg 8-29 tablet by ity o f tablet 00:00: mouth (two) Medical times Branch daily. foLIC acid 2018- Yes [id number] 1mg Take 1 U nivers 1 mg tablet 8-29 tablet by ity of 00:00: mouth 00 daily. Medical Branch levETIRAcet 2018-0 Yes [id number] 750mg Take 1 Univers am 750 mg 8-29 tablet by ity o f tablet 00:00: mouth (two) Medical times Branch daily. foLIC acid Yes [id number] 1mg Take 1 U nivers 1 mg tablet 8-29 tablet by ity of 00:00: mouth 00 daily. Medical Branch levETIRAcet Yes [id number] 750mg Take 1 Univers am 750 mg 8-29 tablet by ity o f tablet 00:00: mouth (two) Medical times Branch daily. foLIC acid Yes [id number] 1mg Take 1 U nivers 1 mg tablet 8-29 tablet by ity of 00:00: mouth 00 daily. Medical Branch levETIRAcet Yes [id number] 750mg Take 1 Univers am 750 mg 8-29 tablet by ity o f tablet 00:00: mouth (two) Medical times Branch daily. foLIC acid Yes [id number] 1mg Take 1 U nivers 1 mg tablet 8-29 tablet by ity of 00:00: mouth 00 daily. Medical Branch levETIRAcet Yes [id number] 750mg Take 1 Univers am 750 mg 8-29 tablet by ity o f tablet 00:00: mouth (two) Medical times Branch daily. foLIC acid Yes [id number] 1mg Take 1 U nivers 1 mg tablet 8-29 tablet by ity of 00:00: mouth 00 daily. Medical Branch levETIRAcet 2018-0 Yes [id number] 750mg Take 1 Univers am 750 mg 8-29 tablet by ity o f tablet 00:00: mouth (two) Medical times Branch daily. foLIC acid 2018-0 Yes [id number] 1mg Take 1 U nivers 1 mg tablet 8-29 tablet by ity of 00:00: mouth 00 daily. Medical Branch levETIRAcet 2018-0 Yes [id number] 750mg Take 1 Univers am 750 mg 8-29 tablet by ity o f tablet 00:00: mouth 2 (two) Medical times Branch daily. foLIC acid Yes [id number] 1mg Take 1 U nivers 1 mg tablet 8-29 tablet by ity of 00:00: mouth [place] 00 daily. Medical Branch levETIRAcet Yes [id number] 750mg Take 1 Univers am 750 mg 8-29 tablet by ity o f tablet 00:00: mouth 2 00 (two) Medical times Branch daily. foLIC acid Yes [id number] 1mg Take 1 U nivers 1 mg tablet 8-29 tablet by ity of 00:00: mouth [place] 00 daily. Medical Branch levETIRAcet Yes [id number] 750mg Take 1 Univers am 750 mg 8-29 tablet by ity o f tablet 00:00: mouth 2 (two) Medical times Branch daily. foLIC acid Yes [id number] 1mg Take 1 U nivers 1 mg tablet 8-29 tablet by ity of 00:00: mouth 00 daily. Medical Branch levETIRAcet Yes [id number] 750mg Take 1 Univers am 750 mg 8-29 tablet by ity o f tablet 00:00: mouth 2 (two) Medical times Branch daily. foLIC acid Yes [id number] 1mg Take 1 U nivers 1 mg tablet 8-29 tablet by ity of 00:00: mouth 00 daily. Medical Branch levETIRAcet Yes [id number] 750mg Take 1 Univers am 750 mg 8-29 tablet by ity o f tablet 00:00: mouth 2 00 (two) Medical times Branch daily. levETIRAcet 2020- No [id number] 750mg Take 1 Univers am 750 mg 8-29 10-06 tablet by ity of tablet 00:00: 00:00 mouth 2 [place] 00 :00 (two) Medical times Branch daily. foLIC acid 2020- No [id number] 1mg Take 1 Univers 1 mg tablet 8-29 10-06 tablet by it y of 00:00: 00:00 mouth [place] 00 :00 daily. Medical Branch levETIRAcet 2018- 2020- No [id number] 750mg Take 1 Univers am 750 mg 8-29 10-06 tablet by ity of tablet 00:00: 00:00 mouth 2 [place] 00 :00 (two) Medical times Branch daily. foLIC acid 2020- No [id number] 1mg Take 1 Univers 1 mg tablet 02-06 tablet by it y of 00:00: 00:00 mouth [place] 00 :00 daily. Medical Branch methylPREDN Yes [id number] 84mg Take 21 Univers ISolone 6-13 tablets by ity of (MEDROL, 00:00: mouth [place] ARIA,) 4 mg 00 SEE-INSTRU Med ical tablets CTIONS. Branch follow package directions methylPREDN Yes [id number] 84mg Take 21 Univers ISolone 6-13 tablets by ity of (MEDROL, 00:00: mouth [place] ARIA,) 4 mg 00 SEE-INSTRU Med ical tablets CTIONS. Branch follow package directions methylPREDN Yes [id number] 84mg Take 21 Univers ISolone 6-13 tablets by ity of (MEDROL, 00:00: mouth [place] ARIA,) 4 mg 00 SEE-INSTRU Med ical tablets CTIONS. Branch follow package directions methylPREDN Yes [id number] 84mg Take 21 Univers ISolone 6-13 tablets by ity of (MEDROL, 00:00: mouth [place] ARIA,) 4 mg 00 SEE-INSTRU Med ical tablets CTIONS. Branch follow package directions methylPREDN Yes [id number] 84mg Take 21 Univers ISolone 6-13 tablets by ity of (MEDROL, 00:00: mouth [place] ARIA,) 4 mg 00 SEE-INSTRU Med ical tablets CTIONS. Branch follow package directions methylPREDN 2018- Yes [id number] 84mg Take 21 Univers ISolone 6-13 tablets by ity of (MEDROL, 00:00: mouth [place] ARIA,) 4 mg 00 SEE-INSTRU Med ical tablets CTIONS. Branch follow package directions methylPREDN 2018- Yes [id number] 84mg Take 21 Univers ISolone 6-13 tablets by ity of (MEDROL, 00:00: mouth [place] ARIA,) 4 mg 00 SEE-INSTRU Med ical tablets CTIONS. Branch follow package directions methylPREDN 2018- Yes [id number] 84mg Take 21 Univers ISolone 6-13 tablets by ity of (MEDROL, 00:00: mouth [place] ARIA,) 4 mg 00 SEE-INSTRU Med ical tablets CTIONS. Branch follow package directions methylPREDN 2019-0 Yes [id number] 84mg Take 21 Univers ISolone 6-13 tablets by ity of (MEDROL, 00:00: mouth [place] ARIA,) 4 mg 00 SEE-INSTRU Med ical tablets CTIONS. Branch follow package directions methylPREDN 2019-0 Yes [id number] 84mg Take 21 Univers ISolone 6-13 tablets by ity of (MEDROL, 00:00: mouth [place] ARIA,) 4 mg 00 SEE-INSTRU Med ical tablets CTIONS. Branch follow package directions methylPREDN 2019-0 Yes [id number] 84mg Take 21 Univers ISolone 6-13 tablets by ity of (MEDROL, 00:00: mouth [place] ARIA,) 4 mg 00 SEE-INSTRU Med ical tablets CTIONS. Branch follow package directions methylPREDN 2019-0 Yes [id number] 84mg Take 21 Univers ISolone 6-13 tablets by ity of (MEDROL, 00:00: mouth [place] ARIA,) 4 mg 00 SEE-INSTRU Med ical tablets CTIONS. Branch follow package directions methylPREDN 2018-0 Yes [id number] 84mg Take 21 Univers ISolone 6-13 tablets by ity of (MEDROL, 00:00: mouth [place] ARIA,) 4 mg 00 SEE-INSTRU Med ical tablets CTIONS. Branch follow package directions methylPREDN 2018-0 Yes [id number] 84mg Take 21 Univers ISolone 6-13 tablets by ity of (MEDROL, 00:00: mouth [place] ARIA,) 4 mg 00 SEE-INSTRU Med ical tablets CTIONS. Branch follow package directions methylPREDN 2019-0 Yes [id number] 84mg Take 21 Univers ISolone 6-13 tablets by ity of (MEDROL, 00:00: mouth [place] ARIA,) 4 mg 00 SEE-INSTRU Med ical tablets CTIONS. Branch follow package directions methylPREDN 2019-0 Yes [id number] 84mg Take 21 Univers ISolone 6-13 tablets by ity of (MEDROL, 00:00: mouth [place] ARIA,) 4 mg 00 SEE-INSTRU Med ical tablets CTIONS. Branch follow package directions methylPREDN 2019-0 Yes [id number] 84mg Take 21 Univers ISolone 6-13 tablets by ity of (MEDROL, 00:00: mouth [place] ARIA,) 4 mg 00 SEE-INSTRU Med ical tablets CTIONS. Branch follow package directions methylPREDN 2019-0 Yes [id number] 84mg Take 21 Univers ISolone 6-13 tablets by ity of (MEDROL, 00:00: mouth [place] ARIA,) 4 mg 00 SEE-INSTRU Med ical tablets CTIONS. Branch follow package directions methylPREDN 2020- No [id number] 84mg Take 21 Univers ISolone 6-13 10- 82886 tablets by ity of (MEDROL, 00:00: 00:00 mouth [place] ARIA,) 4 mg 00 :00 SEE-INSTRU Med ical tablets CTIONS. Branch follow package directions methylPREDN 2020- No [id number] 84mg Take 21 Univers ISolone 6-13 - 05595 tablets by ity of (MEDROL, 00:00: 00:00 mouth [place] ARIA,) 4 mg 00 :00 SEE-INSTRU Med ical tablets CTIONS. Branch follow package directions losartan 2018-0 Yes TK 1 T PO Univ ers 100 mg 6-10 ONCE D. ity of tablet 00:00: [place] [facility] losartan 2019-0 Yes TK 1 T PO Univ ers 100 mg 6-10 ONCE D. ity of tablet 00:00: [place] [facility] losartan 2019-0 Yes TK 1 T PO Univ ers 100 mg 6-10 ONCE D. ity of tablet 00:00: [place] [facility] losartan 2019-0 Yes TK 1 T PO Univ ers 100 mg 6-10 ONCE D. ity of tablet 00:00: [place] [facility] losartan 2019-0 Yes TK 1 T PO Univ ers 100 mg 6-10 ONCE D. ity of tablet 00:00: [place] [facility] losartan 2019-0 Yes TK 1 T PO Univ ers 100 mg 6-10 ONCE D. ity of tablet 00:00: [place] [facility] losartan 2019-0 Yes TK 1 T PO Univ ers 100 mg 6-10 ONCE D. ity of tablet 00:00: [place] [facility] losartan 2019-0 Yes TK 1 T PO Univ ers 100 mg 6-10 ONCE D. ity of tablet 00:00: [place] [facility] losartan 2019-0 Yes TK 1 T PO Univ ers 100 mg 6-10 ONCE D. ity of tablet 00:00: [place] [facility] losartan 2019-0 Yes TK 1 T PO Univ ers 100 mg 6-10 ONCE D. ity of tablet 00:00: [place] 00 [facility] [place] losartan 2019-0 Yes TK 1 T PO Univ ers 100 mg 6-10 ONCE D. ity of tablet 00:00: [place] 00 [facility] losartan 2019-0 Yes TK 1 T PO Univ ers 100 mg 6-10 ONCE D. ity of tablet 00:00: [place] 00 [facility] losartan 2019-0 Yes TK 1 T PO Univ ers 100 mg 6-10 ONCE D. ity of tablet 00:00: [place] [facility] losartan 2019-0 Yes TK 1 T PO Univ ers 100 mg 6-10 ONCE D. ity of tablet 00:00: [place] [facility] losartan 2019-0 Yes TK 1 T PO Univ ers 100 mg 6-10 ONCE D. ity of tablet 00:00: [place] [facility] losartan 2019-0 Yes TK 1 T PO Univ ers 100 mg 6-10 ONCE D. ity of tablet 00:00: [place] [facility] losartan 2019-0 Yes TK 1 T PO Univ ers 100 mg 6-10 ONCE D. ity of tablet 00:00: [place] [facility] losartan 2019-0 Yes TK 1 T PO Univ ers 100 mg 6-10 ONCE D. ity of tablet 00:00: [place] [facility] losartan 2019-0 2020- No TK 1 T PO Uni vers 100 mg 6-10 10-06 ONCE D. ity of tablet 00:00: 00:00 [place] 00 :00 Medical Branch losartan 2019-0 2020- No TK 1 T PO Uni vers 100 mg 6-10 10-06 ONCE D. ity of tablet 00:00: 00:00 [place] 00 :00 [facility] Immunizations Ordered Filled Immunization Date Status Comments [facility] e Immunization Name Name Influenza Virus 2020-03-01 Completed Universit y of Vaccine [facility] IM 3+ 00:00:00 [facility] Influenza Virus 2020-03-01 Completed Universit y of Vaccine Quad IM 3+ 00:00:00 [facility] Influenza Virus 2020-03-01 Completed Universit y of Vaccine Quad IM 3+ 00:00:00 [facility] Influenza Virus 2020-03-01 Completed Universit y of Vaccine Quad IM 3+ 00:00:00 [facility] Influenza Virus 2020-03-01 Completed Universit y of Vaccine Quad IM 3+ 00:00:00 [facility] Influenza Virus 2020-03-01 Completed Universit y of Vaccine Quad IM 3+ 00:00:00 [facility] Influenza Virus 2020-03-01 Completed Universit y of Vaccine Quad IM 3+ 00:00:00 [facility] Influenza Virus 2020-03-01 Completed Universit y of Vaccine Quad IM 3+ 00:00:00 [facility] Influenza Virus 2020-03-01 Completed Universit y of Vaccine Quad IM 3+ 00:00:00 [facility] Influenza Virus 2020-03-01 Completed Universit y of Vaccine Quad IM 3+ 00:00:00 [facility] Influenza Virus 2020-03-01 Completed Universit y of Vaccine Quad IM 3+ 00:00:00 [facility] Influenza Virus 2020-03-01 Completed Universit y of Vaccine Quad IM 3+ 00:00:00 [facility] Influenza Virus 2020-03-01 Completed Universit y of Vaccine Quad IM 3+ 00:00:00 [facility] TDAP 2019-10-10 Completed University of 00:00:00 [facility] TDAP 2019-10-10 Completed University of 00:00:00 [facility] TDAP 2019-10-10 Completed University of 00:00:00 [facility] TDAP 2019-10-10 Completed University of 00:00:00 [facility] TDAP 2019-10-10 Completed University of 00:00:00 [facility] TDAP 2019-10-10 Completed University of 00:00:00 [facility] TDAP 2019-10-10 Completed University of 00:00:00 [facility] TDAP 2019-10-10 Completed University of 00:00:00 [facility] TDAP 2019-10-10 Completed University of 00:00:00 [facility] TDAP 2019-10-10 Completed University of 00:00:00 [facility] TDAP 2019-10-10 Completed University of 00:00:00 [facility] TDAP 2019-10-10 Completed University of 00:00:00 [facility] TDAP 2019-10-10 Completed University of 00:00:00 [facility] Vital Signs Vital Name Observation Time Observation Value Comments Source Systolic blood 2020-08-10 17:00:00 124 mm[Hg] Univer sity of pressure [facility] Diastolic blood 2020-08-10 17:00:00 70 mm[Hg] Unive rsity of pressure [facility] Heart rate 2020-08-10 17:00:00 70 /min Universi ty of [facility] Branch Respiratory rate 2020-08-10 17:00:00 21 /min Univ ersity of [facility] Oxygen saturation in 2020-08-10 17:00:00 100 /min University of Arterial blood by [facility] Pulse oximetry Branch Body temperature 2020-08-10 14:44:00 36.89 [place] Univ ersity of [place] [facility] Body weight 2020-08-10 14:44:00 95.255 kg Universi ty of [place] [facility] BMI 2020-08-10 14:44:00 37.20 kg/m2 Universi ty of [facility] Systolic blood 2020-03-30 18:44:00 128 mm[Hg] Univer sity of pressure [facility] Branch Diastolic blood 2020-03-30 18:44:00 87 mm[Hg] Unive rsity of pressure [facility] Heart rate 2020-03-30 18:44:00 91 /min Universi ty of [facility] Body temperature 2020-03-30 18:44:00 36.89 [place] Univ ersity of [facility] Branch Respiratory rate 2020-03-30 18:44:00 18 /min Univ ersity of [facility] Body height 2020-03-30 18:44:00 160 cm Universi ty of [place] [facility] Body weight 2020-03-30 18:44:00 95.528 kg Universi ty of [place] [facility] BMI 2020-03-30 18:44:00 37.31 kg/m2 Universi ty of [facility] Branch Systolic blood 2020-03-16 14:33:00 105 mm[Hg] Univer sity of pressure [place] [facility] Diastolic blood 2020-03-16 14:33:00 67 mm[Hg] Unive rsity of pressure [place] [facility] Heart rate 2020-03-16 14:33:00 65 /min Universi ty of [facility] Body temperature 2020-03-16 14:33:00 36.83 [place] Univ ersity of [facility] Body height 2020-03-16 14:33:00 160 cm Universi ty of [place] [facility] Body weight 2020-03-16 14:33:00 96.163 kg Universi ty of [place] [facility] BMI 2020-03-16 14:33:00 37.55 kg/m2 Universi ty of [facility] Body weight 2019-10-29 10:55:00 83.008 kg Universi ty of [place] [facility] BMI 2019-10-29 10:55:00 32.42 kg/m2 Universi ty of [facility] Branch Body height 2019-10-14 13:43:00 160 cm Universi ty of [facility] Body weight 2019-10-14 13:43:00 81.647 kg Universi ty of [facility] Branch BMI 2019-10-14 13:43:00 31.89 kg/m2 Universi ty of [facility] Branch Systolic blood 2019-10-07 18:48:00 134 mm[Hg] Univer sity of pressure [facility] Branch Diastolic blood 2019-10-07 18:48:00 84 mm[Hg] Unive rsity of pressure [facility] Heart rate 2019-10-07 18:48:00 85 /min [facility] [facility] Body height 2019-10-07 18:48:00 160 cm [facility] Body weight 2019-10-07 18:48:00 81.647 kg [facility]i ty of [facility] Branch BMI 2019-10-07 18:48:00 31.89 kg/m2 [facility] Heart rate 2019-09-06 10:34:00 99 /min [facility] Body temperature 2019-09-06 10:34:00 36 Toña Univ ers[facility] Respiratory rate 2019-09-06 10:34:00 20 /min Univ [facility] Body height 2019-09-06 10:34:00 160 cm [facility] Body weight 2019-09-06 10:34:00 81.647 kg [facility]i ty of [facility] BMI 2019-09-06 10:34:00 31.89 kg/m2 [facility] Oxygen saturation in 2019-09-06 10:34:00 98 /min University Arterial blood by [facility] Pulse oximetry Branch Systolic blood 2019-02-07 16:27:00 124 mm[Hg] Univer sity of pressure [facility] Diastolic blood 2019-02-07 16:27:00 65 mm[Hg] Unive rsity of [facility] Heart rate 2019-02-07 16:27:00 88 /min [facility] [place] [facility] Body temperature 2019-02-07 16:27:[address] [facility] Respiratory rate 2019-02-07 16:27:00 18 /min [facility] Oxygen saturation in 2019-02-07 16:27:00 96 /min [facility] Arterial blood by [facility] Pulse oximetry Branch Body height 2019-02-06 09:36:00 160 cm [facility] Body weight 2019-02-06 09:36:00 79.833 kg [facility] BMI 2019-02-06 09:36:00 31.18 kg/m2 [facility] Procedures Procedure Date / Time Performing Source Performed Clinician CT HEAD WO CONTRAST 2020-08-10 Lindsey Sierra [facility] 15:43:00 Medical Branch HEPATIC FUNCTION PANEL 2020-08-10 Lindsey Sierra [facility] ([id number]) (ALB,T.PRO,BILI 15:33:00 Medical Branch T,BU/BC,ALT,AST,ALK PHOS) BASIC METABOLIC PANEL (NA, K, 2020-08-10 Lindsey Sierra [facility] CL, CO2, GLUCOSE, BUN, 15:33:00 Medical B ranch CREATININE, [place]) CBC WITH DIFF 2020-08-10 Lindsey Sierra [facility] [place] 15:33:00 Medical Branch PROTHROMBIN TIME / INR 2020-08-10 Lindsey Sierra [facility] 15:33:00 Medical Branch ACTIVATED PARTIAL THRMPLAS 2020-08-10 Lindsey Sierra [facility] GLORIA 15:33:00 Medical Branch CONSENT/REFUSAL FOR DIAGNOSIS 2020-08-10 Doctor Gary, [facility] AND TREATMENT 14:39:22 [place] [facility] ASSIGNMENT OF BENEFITS 2020-06-17 Doctor Gary, [facility] 20:02:22 [place] [facility] CONSENT FOR ORAL 2020-03-30 Doctor Gary [facility] CONTRACEPTIVES 05:01:00 [place] [facility] REFERRAL- REQUEST/RESPONSE 2019-12-30 Doctor Gary, [facility] 05:01:00 [place] [facility] XR ANKLE 3+ VW RIGHT 2019-10-29 Lindsey Sierra [facility] 11:26:12 Medical Branch XR FOOT 3+ VW RIGHT 2019-10-29 Lindsey Sierra [place] 11:26:12 Medical Branch CONSENT/REFUSAL FOR DIAGNOSIS 2019-10-29 Doctor Unassigned, [facility] AND TREATMENT 10:28:27 [place] [facility] EXTERNAL PROVIDER RECORDS 2019-10-15 Doctor Unassigned, [facility] 05:01:00 [place] [facility] XR FOOT <3 VW RIGHT 2019-10-07 Yancy Shukla [facility] [place] 18:56:52 Medical Branch POCT TEST 2019-09-06 mainenm [facility] 10:49:00 Medical Branch LIPASE 2019-09-06 [facility] ex 10:45:00 Medical Branch COMP. METABOLIC PANEL (75167) 2019-09-06 Jacek Conklin [facility] 10:45:00 Medical Branch CBC WITH DIFFERENTIAL 2019-09-06 [facility] 10:45:00 Medical Branch URINALYSIS 2019-09-06 [facility] ex 10:45:00 Medical Branch NOTICE OF PRIVACY PRACTICES 2019-09-06 Doctor Unassigned, [facility] 10:22:06 [place] [facility] CONSENT/REFUSAL FOR DIAGNOSIS 2019-09-06 Doctor Unassigned, [facility] AND TREATMENT 10:21:36 [place] [facility] EXTERNAL PROVIDER RECORDS 2019-02-20 Doctor Unassigned, [facility] 05:01:00 [place] [facility] MR BRAIN W WO CONTRAST 2019-02-07 [facility] 07:07:01 [facility] Branch GALV/CLC ONLY - URINE DRUG 2019-02-06 [facility] (IMMUNOASSAY) - COMPREHENSIVE 16:41:00 Ut dical [place] DRUG SCREEN PHOSPHORUS 2019-02-06 [facility] [place] 16:40:00 [facility] CREATINE KINASE 2019-02-06 [facility] [place] 16:40:00 Medical Branch MAGNESIUM 2019-02-06 [facility] 16:40:00 Medical Branch BASIC METABOLIC PANEL (NA, K, 2019-02-06 [facility] CL, CO2, GLUCOSE, BUN, 16:40:00 Medical B ranch CREATININE, CA) URINALYSIS 2019-02-06 Lizeth Arana [facility] 16:40:00 Medical Branch PHOSPHORUS 2019-02-06 [facility] xa 14:09:00 Medical Branch CREATINE KINASE 2019-02-06 [facility] xa 14:09:00 Medical Branch MAGNESIUM 2019-02-06 [facility] 14:09:00 Medical Branch BASIC METABOLIC PANEL (NA, K, 2019-02-06 [facility] CL, CO2, GLUCOSE, BUN, 14:09:00 Medical B ranch CREATININE, CA) CBC WITH DIFFERENTIAL 2019-02-06 [facility] 14:08:00 [facility] ELECTROENCEPHALOGRAM 2019-02-06 [facility] 00:00:00 Medical Branch Encounters Start End Encounter Admission Attending Care Care Encounter Source Date/Time Date/Time Type Type Clinicians Facility Department ID 2021-04-[address] [facility] [id number] [facility] [facility] [id number] Univers 16:16:31 [facility] [place] [facility] 2022-09-19 2022-09-19 Outpatient R ACE CARRASCO [facility] B [id number] Univers 08:45:00 08:45:00 ACE CARRASCO [facility] 2022-07-26 2022-07-26 Outpatient ASH ALEMAN [id number] Arsalan 14:28:05 14:28:05 [id number] F Vj 2022-03-09 2022-03-09 Outpatient R ANDRZEJ [facility] [id number] Univers 15:00:00 15:00:00 CELSA [facility] 2021-07-06 2021-07-06 Outpatient JUDIT_NICHOLE BLAKE 914 [place] 05:59:00 05:59:00 _ANN 0126 da [facility] 2021-03-30 2021-03-30 Outpatient R BILL [facility] [id number] Univers 15:30:00 15:30:00 TAMIKA itlemuel [facility] 2020-11-24 2020-11-24 Outpatient R BILL, [facility] [id number] Univers 11:00:00 11:00:00 TAMIKA eunicelemuel [facility] 2020-10-08 2020-10-08 [facility] [id number] Univers 11:15:00 11:15:00 WONDIFUL ity o f [facility] 2020-08-26 2020-08-26 Patient [facility] [id number] Univers 00:00:00 00:00:00 Outreach Mele PRIMARY [id number] i ty of [facility] [place] [phone] Ut dical 388 [place] 2020-08-10 2020-08-10 Emergency [facility] [id number] Univers 08:45:00 12:00:00 Lindsey Joseph [id number] i ty [place] [phone] [facility] 084 Branch 2020-06-23 2020-06-23 Case Jo[facility]quinUNM [facility] 1.2.840.114 [id number] Univers 00:00:00 00:00:00 Management Wondiful A Health [id number] ity of [place] 4.2.7.2.686 Erlin as Emiliaio [phone] Ut dicil nal 044 Branch Office Building One 2020-06-17 2020-06-17 Outpatient R [facility] [id number] Univers 14:00:00 14:00:00 ity of [facility] 2020-06-17 2020-06-17 Orders Doctor MORRELL 1.2.840.114 [id number] Univers 00:00:00 00:00:00 Only Unassigned, MANE [id number] ity of [place] [facility] 4.2.7.2.686 [place]lin as [phone] [facility] 009 Branch 2020-04-21 2020-04-21 [facility] [id number] Univers 13:00:00 13:00:00 TAMIKA guzman [facility] 2020-03-30 2020-03-30 Senior Net Software Engineer 2, Adc Lab [facility] 1.2.840.114 [id number] Univers 14:32:13 14:47:13 Visit Tamika Denny [id number] ity of [place] Profess[place] [phone] Ut dical nal 353 [facility] 2020-03-30 2020-03-30 [facility] 1.2.840.114 [id number] Univers 13:08:15 14:24:41 Visit Tamika Joseph [id number] ity [place] Profess[place] [phone] Ut dical nal 134 [facility] 2020-03-30 2020-03-30 [facility] [id number] Univers 14:00:00 14:00:00 TAMIKA guzman [facility] 2020-03-30 2020-03-30 Telephone Joaquin [facility] 1.2.840.114 [id number] Univers 00:00:00 00:00:00 Wondiful A Health [id number] ity of [place] 4.2.7.2.686 [place]lin as Professio [phone] Ut dical nal 044 [place]ado Office [facility] One 2020-03-30 2020-03-30 Orders Doctor PORSCHE 1.2.840.114 [id number] Univers 00:00:00 00:00:00 Only Unassigned, MANE 350.1.13.10 ity of [place] [facility] 4.2.7.2.686 [place] as [phone] [address] 2020-03-29 2020-03-29 [facility] [id number] Univers 13:00:00 13:00:00 WONDIFUL ity o f [facility] 2020-03-16 2020-03-16 Senior Net Software Engineer Lab, Adc Fam Pob I [facility] 1.2. 840.114 [id number] Univers 10:06:13 10:16:13 Visit Dileep Abrams [facility] 350.1.13.1 0 ity of [place] 4.2.7.2.686 [place] as Professio [phone] Ut dical nal 044 Mikado Office [facility] 2020-03-16 2020-03-16 Office Joaquin [facility] 1.2.840.114 [id number] Univers 09:17:33 10:10:06 Visit Wondiful A Health [id number] ity of [place] 4.2.7.2.686 [place]lin as Professio [phone] [facility] nal 044 [place]ado Office [facility] One 2020-03-16 2020-03-16 Outpatient R JOAQUIN, [facility] [id number] Univers 09:00:00 09:00:00 WONDIFUL ity o f [facility] 2020-01-21 2020-01-21 Letter PORSCHE Medrano 1.2.840.114 [id number] Univers 00:00:00 00:00:00 (Out) Vesta GILLIAM 350.1.13.10 it y of [facility] 4.2.7.2.686 [place] as [phone] [facility] 043 Mikado 2020-01-06 2020-01-06 Outpatient R ADUM, [facility] [id number] Univers 14:00:00 14:00:00 TAMIKA guzman [facility] 2019-12-30 2019-12-30 Orders Doctor MORRELL 1.2.840.114 [id number] Univers 00:00:00 00:00:00 Only Unassigned, MANE 350.1.13.10 ity of [place] [facility]OS[facility]ITAL 4.2.7.2.686 Erlin as [phone] [facility] 009 Mikado 2019-12-24 2019-12-24 Outpatient R ADUM, [facility] [id number] Univers 13:30:00 13:30:00 TAMIKA guzman [facility] 2019-12-23 2019-12-23 Outpatient R ADUM, [facility] [id number] Univers 13:00:00 13:00:00 TAMIKA guzman [facility] 2019-11-20 2019-11-20 Letter PORSCHE Dwyer 1.2.840.114 [id number] Univers 00:00:00 00:00:00 (Out) Rina T MANE 350.1.13.10 it y of HOSPITAL 4.2.7.2.686 [place] as [phone] [facility] 019 Branch 2019-11-19 2019-11-19 Telephone Pojeanette, Deanna [facility] 1.2.840.114 [id number] Univers 00:00:00 00:00:00 [facility] 350.1.13.10 ity of [place] 4.2.7.2.686 [place] as Professio [phone] Ut dical nal 044 Branch Office Building One 2019-11-18 2019-11-18 [facility] [id number] Univers 14:00:00 14:00:00 REENU ity of [facility] 2019-10-29 2019-10-29 Emergency Lindsey Sierra [facility] 1.2.840. 114 [id number] Univers 05:52:14 07:46:00 Lindsey Sierra [place] 350.1.13.10 ity of [place] [phone] [facility] 084 Mikado 2019-10-29 2019-10-29 Emergency X RIGO [facility] ERT [id number] Univers 05:52:14 07:46:00 [facility] 2019-10-28 2019-10-28 Outpatient [facility] [id number] Univers 13:00:00 13:00:00 YANCY ity of [facility] 2019-10-27 2019-10-27 Telephone [facility] 1.2.840.114 [id number] Univers 00:00:00 00:00:00 [facility] 350.1.13.10 it y of Surgical 4.2.7.2.686 [place] as Specialti [phone] Ut dical es 198 [facility] 2019-10-15 2019-10-15 Outpatient [facility] [id number] Univers 13:00:00 13:00:00 SULMA ity [facility] 2019-10-15 2019-10-15 Orders Doctor MORRELL 1.2.840.114 [id number] Univers 00:00:00 00:00:00 Only Unassigned, MANE 350.1.13.10 ity of [place] HOSPITAL 4.2.7.2.686 Erlin as [phone] [address] 2019-10-14 2019-10-14 Office [facility] 1.2.840.114 [id number] Univers 08:41:58 08:56:58 Visit [facility] 350.1.13.10 it y of Surgical 4.2.7.2.686 [place] as Specialti [phone] Me dical es 198 [facility] 2019-10-14 2019-10-14 Outpatient [facility] [id number] Univers 08:45:00 08:45:00 YANCY ity of [facility] 2019-10-07 2019-10-07 Outpatient [facility] [id number] Univers 13:56:52 23:59:00 YANCY ity of [facility] 2019-10-07 2019-10-07 [facility] 1.2.840.114 [id number] Univers 13:56:00 23:59:00 Encounter [facility] 350.1.13.10 ity of Surgical 4.2.7.2.686 [place] as Specialti [phone] Me dical es 809 [facility] 2019-10-07 2019-10-07 Office [facility] 1.2.840.114 [id number] Univers 13:47:35 14:02:35 Visit [facility] 350.1.13.10 it y of Surgical 4.2.7.2.686 [place] as Specialti [phone] Me dical es 198 [facility] 2019-10-07 2019-10-07 Letter [facility] 1.2.840.114 [id number] Univers 00:00:00 00:00:00 (Out) [facility] Health 350.1.13.10 it y of Surgical 4.2.7.2.686 [place] as Specialti [phone] Me dical es 198 [facility] 2019-09-06 2019-09-06 Emergency [facility] 1.2.125.661 [id number] Univers 05:23:10 06:48:00 Jacek Salvador [place] 350.1.13.10 ity of [place] [phone] [facility] 084 Branch 2019-09-06 2019-09-06 Orders Doctor PORSCHE 1.2.840.114 [id number] Univers 00:00:00 00:00:00 Only Unassigned, MANE 350.1.13.10 ity of [place] HOSPITAL 4.2.7.2.686 Erlin as [phone] [place] [address] Branch 2019-07-07 2019-07-07 Letter Clinic, [facility] UNIVERSIT 1.2.840.114 [id number] Univers 00:00:00 00:00:00 (Out) Neurology Y HEALTH 350.1.13.10 ity of [facility] CL[facility] 4.2.7.2.[place] [phone] [place] 338212 Branch 2019-02-20 2019-02-20 Orders Doctor PORSCHE 1.2.840.114 [id number] Univers 00:00:00 00:00:00 Only Unassigned, MANE 350.1.13.10 ity of [place] HOSPITAL 4.2.7.2.686 Erlin as [phone] [place] [address] Branch 2019-02-06 2019-02-07 [facility] Erinn Roberts 1.2.840.114 [id number] Univers 04:26:00 14:25:00 Encounter Monica Persony 350.1.13.10 ity of Hospital 4.2.7.2.686 [place] as [phone] [address] Results Test Description Test Time Test Comments Results Result Comments Source aPTT 2020-08-10 16:26:00 Test Item Value Reference Range Interpretation Comme nts APTT Patient (test code = See_Comment [ Automated message] The 3173-2) system which ge nerated this result tra nsmitted reference range : 23 - 38 Seconds. The re ference range was not u sed to interpret this result as normal/abnormal . NORM (test code = NORM) The [facility] patient population mean normal value for aPTT is 30 seconds. Lab Interpretation (test Normal code = 12361-6) [facility] (PT[facility] / [id number] 16:24:00 Test Item Value Reference Range Interpretation Comments PROTIME PATIENT (test See_Comment [Auto mated message] code = 5964-2) The system DWNLD generated this result transmitted ref erence range: 12.0 - 1 4.7 Seconds. The re ference range was not u sed to interpret this result as normal/abnor mal. INR (test code = 6301-6) Nor mal INR <1.1; Warfarin Therap eutic range 2.0 to 3. 0 or 2.5 to 3.5, dep ending upon the indica tions. Lab Interpretation (test Normal code = 42006-3) [facility] Metabolic Panel (NA, K, CL, CO2, GLUCOSE, BUN, CREATININE, CA)2020-08-10 16:22:00 Test Item Value Reference Range Interpretation Comments NA (test code = 137 mmol/L 135-145 1261684731) K (test code = 2.6 mmol/L 3.5-5 LL 3835477126) CL (test code = 99 mmol/L 98-108 1287119361) CO2 TOTAL (test code = 30 mmol/L 23-31 5767082772) AGAP (test code = 2-16 2153891025) BUN (test code = 11 mg/dL 7-23 0255275900) GLUCOSE (test code = 96 mg/dL 70-110 9510357040) CREATININE (test code = 0.79 mg/dL 0.5-1.04 9836498702) CALCIUM (test code = 8.5 mg/dL 8.6-10.6 L 2713301184) eGFR Calculation mL/min/1.73m2 (Non-) (test code = 5985456024) eGFR Calculation mL/min/1.73m2 () (test code = 2914393550) NORM (test code = NORM) Association of Glomerular Filtration Rate (GFR) and Staging of Kidney Disease* + --+ --+ ------+| GFR (mL/min/1.73 m2) ?| With Kidney Damage ?| ?Without Kidney Damage+ --------+ --------+ +| ?>90 ?| ?Stage one ?| ? Normal ?+ ---+ ---+ -------+| ?60-89 ?| ?Stage two ?| ? Decreased GFR ? + --+ --+ ------+| ?30-59 ?| ?Stage three ?| ? Stage three ? + --+ --+ ------+| ?15-29 ?| ?Stage four ? | ? Stage four ?+ ---+ ---+ -------+| ?<15 (or dialysis) ? ?| ?Stage five ? | ? Stage five ?+ ---+ ---+ -------+ *Each stage assumes the associated GFR level has been in effect for at least three months. ?Stages 1 to 5, with or without kidney disease, indicate chronic kidney disease. Notes: Determination of stages one and two (with eGFR >59mL/min/1.73 m2) requires estimation of kidney damage for at least three months as defined by structural or functional abnormalities of the kidney, manifested by either:Pathological abnormalities or Markers of kidney damage (including abnormalities in the composition of the blood or urine or abnormalities in imaging tests). Lab Interpretation Abnormal (test code = 77132-4) [facility] (ALB, T.PRO, BILI T, BU/BC, ALT, AST, ALK PHOS)2020-08-10 16:22:00 Test Item Value Reference Range Interpretation Comments TOTAL BILI (test code = 3025175741) 0.4 mg/dL 0.1-1.1 BILI UNCON (test code = 5698345929) 0.3 mg/dL 0.1-1.1 BILI CONJ (test code = 6817077632) 0.0 mg/dL 0-0.3 T PROTEIN (test code = 0597433274) 7.5 g/dL 6.3-8.2 ALBUMIN (test code = 2441569713) 4.0 g/dL 3.5-5 ALK PHOS (test code = 9437091158) 55 U/L 34-122 ALTv (test code = 1742-6) 57 U/L 5-35 H AST(SGOT) (test code = 2628912981) 30 U/L 13-40 Lab Interpretation (test code = Abnormal 65692-2) [facility] with [id number] 16:09:00 Test Item Value Reference Range Interpretation Comments WBC (test code = See_Comment [Automated message] 6690-2) The system CREATIV generated this result transmitted ref erence range: 4.30 - 1 1.10 10*3/?L. The re ference range was not u sed to interpret this result as normal/abnor mal. RBC (test code = See_Comment [Automated message] 949-8) The system CREATIV generated this result transmitted ref erence range: 3.93 - 5 .25 10*6/?L. The re ference range was not u sed to interpret this result as normal/abnor mal. HGB (test code = 12.3 g/dL 11.6-15 718-7) HCT (test code = 37.1 % 35.7-45.2 4544-3) MCV (test code = 88.3 fL 80.6-95.5 787-2) MCH (test code = 29.3 pg 25.9-32.8 785-6) MCHC (test code = 33.2 g/dL 31.6-35.1 786-4) RDW-SD (test code 43.3 fL 39-49.9 = 94735-1) RDW-CV (test code 13.3 % 12-15.5 = 788-0) PLT (test code = See_Comment [Automated message] 777-3) The system CREATIV generated this result transmitted ref erence range: 166 - 35 8 10*3/?L. The re ference range was not u sed to interpret this result as normal/abnor mal. MPV (test code = 10.4 fL 9.5-12.9 25133-0) NRBC/100 WBC (test See_Comment [Automat ed message] code = 9662941778) The syste m which generated this result transmitted ref erence range: 0.0 - 10 .0 /100 WBCs. The refer ence range was not u sed to interpret this result as normal/abnor mal. NRBC x10^3 (test <0.01 See_Comment [Automated message] code = 5421692218) The syste m which generated this result transmitted ref erence range: 10*3/?L. The reference range was not used to interpr et this result as normal/abnormal . GRAN MAT (NEUT) % 63.2 % (test code = 770-8) IMM GRAN % (test 0.30 % code = 6756658244) LYMPH % (test code 27.3 % = 736-9) MONO % (test code 6.7 % = 5905-5) EOS % (test code = 2.0 % 713-8) BASO % (test code 0.5 % = 706-2) GRAN MAT 4.63 10*3/uL 1.88-7.09 x10^3(ANC) (test code = 8442691383) IMM GRAN x10^3 <0.03 0-0.06 (test code = 9606365027) LYMPH x10^3 (test 2.00 10*3/uL 1.32-3.29 code = 731-0) MONO x10^3 (test 0.49 10*3/uL 0.33-0.92 code = 742-7) EOS x10^3 (test 0.15 10*3/uL 0.03-0.39 code = 711-2) BASO x10^3 (test 0.04 10*3/uL 0.01-0.07 code = 704-7) [facility] HEAD WO [id number] 15:58:26No acute findings. HISTORY:Headache, intracranial hemorrhage suspected TECHNIQUE: Noncontrast head CT was performed. COMPARISON:MRI 02/07/2019. FINDINGS: The ventricles and sulci are appropriate for patient's age. There is no midline shift. The basal cisterns are preserved. No largevascular territory infarction, intracranial hemorrhage or mass effect isseen. A partially empty sella configuration is unchanged from the last MRI. The extracranial tissues demonstrate no acute findings. [facility], Radiant Results Inft User - 08/10/2020 9:59 AM CSTHISTORY:Headache, intracranial hemorrhage suspected TECHNIQUE: Noncontrast head CT was performed.COMPARISON:MRI 02/07/2019.FINDINGS:The ventricles and sulci are appropriate for patient's age.There is no midline shift. The basal cisterns are preserved. No largevascular territory infarction, intracranial hemorrhage or mass effect isseen.A partially empty sella configuration is unchanged from the last MRI.The extracranial tissues demonstrate no acute findings.IMPRESSIONNo acute findings.[facility] HospitalXR FOOT <3 VW RIGHT 2019-10-07 19:45:19 2 views were taken of the foot and a ankle AP and oblique were obtained afterwards to check the lateral malleolus there were no signs of fracture or dislocation joint spaces were well maintainedKearney Regional Medical Center WITH [id number] 11:19:00 Test Item Value Reference Range Interpretation Comments WBC (test code = See_Comment [Automated message] 6690-2) The system CREATIV generated this result transmitted ref erence range: 4.30 - 1 1.10 10*3/?L. The re ference range was not u sed to interpret this result as normal/abnor mal. RBC (test code = See_Comment [Automated message] 789-8) The system CREATIV generated this result transmitted ref erence range: 3.93 - 5 .25 10*6/?L. The re ference range was not u sed to interpret this result as normal/abnor mal. HGB (test code = 12.9 g/dL 11.6-15 718-7) HCT (test code = 39.1 % 35.7-45.2 4544-3) MCV (test code = 88.3 fL 80.6-95.5 787-2) MCH (test code = 29.1 pg 25.9-32.8 785-6) MCHC (test code = 33.0 g/dL 31.6-35.1 786-4) RDW-SD (test code 41.4 fL 39-49.9 = 04045-8) RDW-CV (test code 12.8 % 12-15.5 = 788-0) PLT (test code = See_Comment [Automated message] 717-3) The system CREATIV generated this result transmitted ref erence range: 166 - 35 8 10*3/?L. The re ference range was not u sed to interpret this result as normal/abnor mal. MPV (test code = 10.2 fL 9.5-12.9 75207-5) NRBC/100 WBC (test See_Comment [Automat ed message] code = 4070317982) [employer] which generated this result transmitted ref erence range: 0.0 - 10 .0 /100 WBCs. The refer ence range was not u sed to interpret this result as normal/abnor mal. NRBC x10^3 (test <0.01 See_Comment [Automated message] code = 0490081465) The syste m which generated this result transmitted ref erence range: 10*3/?L. The reference range was not used to interpr et this result as normal/abnormal . GRAN MAT (NEUT) % 61.5 % (test code = 770-8) IMM GRAN % (test 0.80 % code = 0657991772) LYMPH % (test code 28.3 % = 736-9) MONO % (test code 8.2 % = 5905-5) EOS % (test code = 0.6 % 713-8) BASO % (test code 0.6 % = 706-2) GRAN MAT 4.77 10*3/uL 1.88-7.09 x10^3(ANC) (test code = 7868639062) IMM GRAN x10^3 0.06 10*3/uL 0-0.06 (test code = 7524647761) LYMPH x10^3 (test 2.20 10*3/uL 1.32-3.29 code = 731-0) MONO x10^3 (test 0.64 10*3/uL 0.33-0.92 code = 742-7) EOS x10^3 (test 0.05 10*3/uL 0.03-0.39 code = 711-2) BASO x10^3 (test 0.05 10*3/uL 0.01-0.07 code = 704-7) [facility]. METABOLIC PANEL (72890)2019-09-06 11:16:00 Test Item Value Reference Range Interpretation Comments NA (test code = 138 mmol/L 135-145 3570419035) K (test code = 3.9 mmol/L 3.5-5 9007586749) CL (test code = 108 mmol/L 98-108 7311136255) CO2 TOTAL (test code = 27 mmol/L 23-31 5080950550) AGAP (test code = 2-16 9738241465) BUN (test code = 9 mg/dL 7-23 3360647148) GLUCOSE (test code = 105 mg/dL 70-110 6714318996) CREATININE (test code 0.61 mg/dL 0.5-1.04 = 4698931388) TOTAL BILI (test code 0.4 mg/dL 0.1-1.1 = 0373183734) CALCIUM (test code = 8.9 mg/dL 8.6-10.6 1066833521) T PROTEIN (test code = 7.8 g/dL 6.3-8.2 6684207952) ALBUMIN (test code = 4.2 g/dL 3.5-5 0799269572) ALK PHOS (test code = 57 U/L 34-122 6282194670) ALTv (test code = 16 U/L 5-35 1742-6) AST(SGOT) (test code = 25 U/L 13-40 4213357810) eGFR Calculation mL/min/1.73m2 (Non-) (test code = 7893276483) eGFR Calculation mL/min/1.73m2 () (test code = 9386629790) NORM (test code = NORM) Association of Glomerular Filtration Rate (GFR) and Staging of Kidney Disease* + -+ + ---+| GFR (mL/min/1.73 m2) ?| With Kidney Damage ?| ?Without Kidney Damage+ -------+ ------+ ---------+| ?>90 ?| ?Stage one ?| ? Normal ?+ --+ -+ ----+| ?60-89 ?| ?Stage two ?| ? Decreased GFR ? + -+ + ---+| ?30-59 ?| ?Stage three ?| ? Stage three ? + -+ + ---+| ?15-29 ?| ?Stage four ? | ? Stage four ?+ --+ -+ ----+| ?<15 (or dialysis) ? ?| ?Stage five ? | ? Stage five ?+ --+ -+ ----+ *Each stage assumes the associated GFR level has been in effect for at least three months. ?Stages 1 to 5, with or without kidney disease, indicate chronic kidney disease. Notes: Determination of stages one and two (with eGFR >59mL/min/1.73 m2) requires estimation of kidney damage for at least three months as defined by structural or functional abnormalities of the kidney, manifested by either:Pathological abnormalities or Markers of kidney damage (including abnormalities in the composition of the blood or urine or abnormalities in imaging tests). [facility] Test Item Value Reference Range Interpretation Comments LIPASE (test code = 9045769185) 15 U/L 0-220 Lab Interpretation (test code = Normal 84807-4) [facility]2020-[facility]-28 11:05:00 Test Item Value Reference Range Interpretation Comments APPEARANCE (test code = Clear Clear 1713491693) COLOR (test code = Yellow Yellow 4222957021) PH (test code = 4.8-8.0 4400554500) SP GRAVITY (test code = 1.003-1.030 8079417558) GLU U QUAL (test code = Normal Normal 2728298714) BLOOD (test code = 2+ Negative A 9862871670) KETONES (test code = Negative Negative 9936784467) PROTEIN (test code = Negative Negative 2887-8) UROBILIN (test code = Normal Normal 7432156543) BILIRUBIN (test code = Negative Negative 4871816034) NITRITE (test code = Negative Negative 5282297370) LEUK EARL (test code = 500/uL Negative A 1536245231) RBC/HPF (test code = See_Comment H [Autom ated message] 4881286851) The system CREATIV generated this result transmitted ref erence range: 0 - 3 HP F. The reference range was not used to int erpret this result as normal/abnormal . WBC/HPF (test code = See_Comment [Autom ated message] 1446126670) The system CREATIV generated this result transmitted ref erence range: 0 - 5 HP F. The reference range was not used to int erpret this result as normal/abnormal . BACTERIA (test code = Few Negative A 0910411381) MUCOUS (test code = Slight Negative LPF A 7566550878) SQ EPITH (test code = HPF 0482913464) YEAST BUD (test code = See_Comment [Aut omated message] 4233396831) The system CREATIV generated this result transmitted ref erence range: <=1 HPF. The reference range was not used to int erpret this result as normal/abnormal . Lab Interpretation (test Abnormal code = 54053-0) [facility]POCT [id number] 10:49:00 Test Item Value Reference Range Interpretation Comments POCT PREG (test code = 1605) negative On board controls acceptable with present C Line (test code = 3574) POCT PREG LOT # (test code = 3575) [id number] POCT PREG TEST DATE (test 01-08-2021 code = 3576) Lab Interpretation (test code = Normal 45425-9) [facility] HospitalMR B[facility]IN W WO [id number] 12:50:55 Impression: Within confines of motion degradation, no acute intracranial abnormality.No definite structural abnormality identified to account for patient'sseizure. The cerebellar tonsils protrude 5 mm below the level of foramen magnum,clinically correlate. * * * * * * * * ORIGINAL REPORT * * * * * * EXAMINATION: MR BRAIN W WO CONTRAST HISTORY: Seizure, new, abn neuro exam, nontraumatic COMPARISON:None. Technique: Seizure protocol MRI of the brain was performed prior to andafter intravenous contrast administration. Quantitative volumetry of the brain was performed using NeuroQuant([email or web address],[place], [place]) software package. The NeuroQuantanalysis was based on a sagittal 3D volumetric MPRAGE pulse sequence.Sequence-checking was performed to ensure appropriate high-resolution andcontrast image parameters. Correction for field/gradient inhomogeneities,removal of the overlying calvaria, alignment to the probabilistic atlas ofstereotypical anatomy and segmented volumetry of predetermined anatomicareas derived from multiple subjects of multiple age groups was performed.Two automated reports were generated. Contrast: 16 mL of Dotarem intravenous. Findings: Images degraded by motion artifacts.There is normal appearance of the brain parenchyma. There is no abnormalenhancement.?No intracranial hemorrhage or mass. The ventricles, sulci and cisterns are normal in size and symmetric. No acute infarct. Partially empty sella. The inferior aspect of the cerebellar tonsilsprotrude 5 mm belowthe level of the foramen magnum. The Hippocampal volume report demonstrates: Left Hippocampal volume: 3.23 Right Hippocampal volume: 3.43Asymmetry Index: -6.0 The values listed above were with 2 SD of the mean. General morphometry report was also reviewed and no gross outliers wereidentified. No definite signal alteration or volume loss noted of thehippocampi. The calvarium is normal. The orbits are unremarkable. The paranasal sinusesare essentially clear. [facility], Radiant Results Inft User - 02/07/2019 7:53 AM CDT* * * * * * * * ORIGINAL REPORT * * * * * * * *EXAMINATION: MR BRAIN W WO CONTRASTHISTORY: Seizure, new, abn neuro exam, nontraumatic COMPARISON: None.Technique: Seizure protocol MRI of thebrain was performed prior to andafter intravenous contrast administration. Quantitative volumetry ofthe brain was performed using NeuroQuant([email or web address], [place], [place]) software package. TheNeuroQuantanalysis was based on a sagittal 3D volumetric MPRAGE pulse sequence.Sequence-checking wasperformed to ensure appropriate high-resolution andcontrast image parameters. Correction for field/gradient inhomogeneities,removal of the overlying calvaria, alignment to the probabilistic atlas ofstereotypical anatomy and segmented volumetry of predetermined anatomicareas derived from multiple subjects of multiple age groups was performed.Two automated reports were generated. Contrast: 16 mL of Dotarem intravenous. Findings:Images degraded by motion artifacts.There is normal appearance of the brain parenchyma. There is no abnormalenhancement. No intracranial hemorrhage or mass. The ventricles, sulci and cisterns are normal in size and symmetric. No acute infarct. Partially empty sella. The inferior aspect of the cerebellar tonsilsprotrude 5 mm below the level of the foramen magnum.The Hippocampal volume report demonstrates:Left Hippocampal volume: 3.23 Right Hippocampal volume: 3.43Asymmetry Index: -6.0The values listed above were with 2 SD of the mean. General morphometry report was also reviewed and no gross outliers wereidentified. No definite signal alteration or volume loss noted of thehippocampi. The calvarium is normal. The orbits are unremarkable. The paranasal sinusesare essentially clear. IMPRESSIONImpression:Within confines of motion degradation, no acute intracranial abnormality.No definite structural abnormality identified to account for patient'sseizure.The cerebellar tonsils protrude 5 mm below the level of foramen magnum,clinically correlate.[facility] Hospital[facility]rine [facility] (Imuunoassay) - Comprehensive Drug Screen ([place] Only)2019-02-06 18:47:00 Test Item Value Reference Range Interpretation Comments AMPHET (test code = Negative Negative 6813585490) DISHA U (test code = Negative Negative 1118652740) BENZO U (test code = Negative Negative 7939580402) Cocaine Metabolite (test Presumptive Positive Negative A code = 5992797291) METHADONE (test code = Negative Negative 1048258760) OPIATES (test code = Negative Negative 4152977171) PCP (test code = Negative Negative 2147510182) THC (test code = Negative Negative 3346111680) NORM (test code = NORM) Urine Drug Cutoff RangesCocaine:? 150 ng/mLBenzodiazepines: ? 200 ng/mLMethadone:? 300 ng/mLAmphetamine:? 1,000 ng/mLOpiates:? 300 ng/mLCannabinoids:?50 ng/mLPhencyclidine:? 25 ng/mLBarbiturates:?20 0 ng/mLThe results are to be used only for medical (i.e., treatment) purposes. Unconfirmed screening results must not be used for non-medical purposes (e.g., employment testing, legal testing). Lab Interpretation (test Abnormal code = 32010-3) [facility] HospitalUrinalysis2019-08-29 17:35:00 Test Item Value Reference Range Interpretation Comments APPEARANCE (test code = Hazy Clear A 5228159270) COLOR (test code = Yellow Yellow 4118089896) PH (test code = 4.8-8.0 9398847178) SP GRAVITY (test code = 1.003-1.030 0567336863) GLU U QUAL (test code = Normal Normal 6703726743) BLOOD (test code = 2+ Negative A 3642486357) KETONES (test code = 5 mg/dL Negative A 6247799330) PROTEIN (test code = Negative Negative 2887-8) UROBILIN (test code = Normal Normal 5276976522) BILIRUBIN (test code = Negative Negative 2376809502) NITRITE (test code = Negative Negative 5063104572) LEUK EARL (test code = 25/uL Negative A 0321157674) RBC/HPF (test code = See_Comment H [Autom ated message] 8874601597) The system CREATIV generated this result transmitted ref erence range: 0 - 3 HP F. The reference range was not used to int erpret this result as normal/abnormal . WBC/HPF (test code = See_Comment [Autom ated message] 7007350901) The system CREATIV generated this result transmitted ref erence range: 0 - 5 HP F. The reference range was not used to int erpret this result as normal/abnormal . BACTERIA (test code = Few Negative A 1426469866) MUCOUS (test code = Slight Negative LPF A 5812823730) SQ EPITH (test code = <1 See_Comment [Auto mated message] 6370077011) The system CREATIV generated this result transmitted ref erence range: <=2 HPF. The reference range was not used to int erpret this result as normal/abnormal . Lab Interpretation (test Abnormal code = 54674-8) [facility] Metabolic Panel (Na, K, Cl, CO2, Glucose, BUN, Creatinine, Ca)2019-02-06 17:25:00 Test Item Value Reference Range Interpretation Comments NA (test code = 140 mmol/L 135-145 3491131142) K (test code = 3.2 mmol/L 3.5-5 L 9686698686) CL (test code = 109 mmol/L 98-108 H 5014385227) CO2 TOTAL (test code = 25 mmol/L 23-31 3125108981) AGAP (test code = 2-16 7228493009) BUN (test code = 6 mg/dL 7-23 L 2372053592) GLUCOSE (test code = 79 mg/dL 70-110 9021938337) CREATININE (test code = 0.53 mg/dL 0.5-1.04 2125662859) CALCIUM (test code = 8.1 mg/dL 8.6-10.6 L 7806569861) eGFR Calculation mL/min/1.73m2 (Non-) (test code = 9964095370) eGFR Calculation mL/min/1.73m2 () (test code = 5664687234) NORM (test code = NORM) Association of Glomerular Filtration Rate (GFR) and Staging of Kidney Disease*+ + + +| GFR (mL/min/1.73 m2)?| With Kidney Damage?|?Without Kidney Damage+ --------+ --------+ +|?>90?|?S sergee one?|? Normal?+ ---------+ ---------+ +|?60-89? |?Stage two?|? Decreased GFR? + --+ --+ ------+|?30-59?|?Stage three?|? Stage three? + --+ --+ ------+|?15-29?|?Stage four? |? Stage four?+ -------+ -------+ +|?<15 (or dialysis)?|?Stage five? |? Stage five?+ -------+ -------+ +*Each stage assumes the associated GFR level has been in effect for at least three months.?Stages 1 to 5, with or without kidney disease, indicate chronic kidney disease.Notes: Determination of stages one and two (with eGFR >59mL/min/1.73 m2) requires estimation of kidney damage for at least three months as defined by structural or functional abnormalities of the kidney, manifested by either:Pathological abnormalities or Markers of kidney damage (including abnormalities in the composition of the blood or urine or abnormalities in imaging tests). Lab Interpretation Abnormal (test code = 54189-5) [facility] HospitalMagnesium [id number] 17:25:00 Test Item Value Reference Range Interpretation Comments MAGNESIUM (test code = 3229096023) 1.9 mg/dL 1.7-2.4 Lab Interpretation (test code = Normal 49131-4) [facility] HospitalPhosphorus [id number] 17:25:00 Test Item Value Reference Range Interpretation Comments PHOSPHORUS (test code = 9951727144) 3.1 mg/dL 2.5-5 Lab Interpretation (test code = Normal 76670-0) [facility] HospitalCreatine Kinase (CK)2019-02-06 17:25:00 Test Item Value Reference Range Interpretation Comments CK (test code = 6680191384) 89 U/L 33-194 Lab Interpretation (test code = Normal 21186-3) [facility] HospitalBasic Metabolic Panel (Na, K, Cl, CO2, Glucose, BUN, Creatinine, Ca)2019-02-06 14:51:00 Test Item Value Reference Range Interpretation Comments NA (test code = 138 mmol/L 135-145 6979891980) K (test code = 3.2 mmol/L 3.5-5 L 9655773572) CL (test code = 107 mmol/L 98-108 0479488235) CO2 TOTAL (test code = 25 mmol/L 23-31 6993232129) AGAP (test code = 2-16 6933370092) BUN (test code = 6 mg/dL 7-23 L 8499391445) GLUCOSE (test code = 79 mg/dL 70-110 8492984264) CREATININE (test code = 0.55 mg/dL 0.5-1.04 8945222525) CALCIUM (test code = 8.0 mg/dL 8.6-10.6 L 5052422055) eGFR Calculation mL/min/1.73m2 (Non-) (test code = 4935171626) eGFR Calculation mL/min/1.73m2 () (test code = 2295449859) NORM (test code = NORM) Association of Glomerular Filtration Rate (GFR) and Staging of Kidney Disease*+ + + +| GFR (mL/min/1.73 m2)?| With Kidney Damage?|?Without Kidney Damage+ --------+ --------+ +|?>90?|?S tage one?|? Normal?+ ---------+ ---------+ +|?60-89? |?Stage two?|? Decreased GFR? + --+ --+ ------+|?30-59?|?Stage three?|? Stage three? + --+ --+ ------+|?15-29?|?Stage four? |? Stage four?+ -------+ -------+ +|?<15 (or dialysis)?|?Stage five? |? Stage five?+ -------+ -------+ +*Each stage assumes the associated GFR level has been in effect for at least three months.?Stages 1 to 5, with or without kidney disease, indicate chronic kidney disease.Notes: Determination of stages one and two (with eGFR >59mL/min/1.73 m2) requires estimation of kidney damage for at least three months as defined by structural or functional abnormalities of the kidney, manifested by either:Pathological abnormalities or Markers of kidney damage (including abnormalities in the composition of the blood or urine or abnormalities in imaging tests). Lab Interpretation Abnormal (test code = 93451-5) [facility] HospitalMagnesium [id number] 14:51:00 Test Item Value Reference Range Interpretation Comments MAGNESIUM (test code = 9247800338) 1.9 mg/dL 1.7-2.4 Lab Interpretation (test code = Normal 41668-9) [facility] HospitalPhosphorus [id number] 14:51:00 Test Item Value Reference Range Interpretation Comments PHOSPHORUS (test code = 1268433999) 3.2 mg/dL 2.5-5 Lab Interpretation (test code = Normal 09816-1) [facility] HospitalCreatine Kinase (CK)2019-02-06 14:51:00 Test Item Value Reference Range Interpretation Comments CK (test code = 9003259038) 79 U/L 33-194 Lab Interpretation (test code = Normal 81317-5) [facility] WITH [id number] 14:27:00 Test Item Value Reference Range Interpretation Comments WBC (test code = See_Comment [Automated 6690-2) message] The sy stem which generated this result transmitted reference range : 4.30 - 11.10 10*3/?L. The reference range was not used to interpret this result as normal/abnormal . RBC (test code = See_Comment L [Automated 789-8) message] The sy stem which generated this result transmitted reference range : 3.93 - 5.25 10*6/?L. The reference range was not used to interpret this result as normal/abnormal . HGB (test code = 11.1 g/dL 11.6-15 L 718-7) HCT (test code = 34.9 % 35.7-45.2 L 4544-3) MCV (test code = 90.2 fL 80.6-95.5 787-2) MCH (test code = 28.7 pg 25.9-32.8 785-6) MCHC (test code = 31.8 g/dL 31.6-35.1 786-4) RDW-SD (test code = 42.2 fL 39-49.9 97468-5) RDW-CV (test code = 12.8 % 12-15.5 788-0) PLT (test code = See_Comment [Automated 777-3) message] The sy stem which generated this result transmitted reference range : 166 - 358 10*3/ ?L. The reference r bozena was not used to interpret this result as normal/abnormal . MPV (test code = 10.0 fL 9.5-12.9 28504-6) NRBC/100 WBC (test See_Comment [Automat ed code = 8026712983) message] The system which generated this result transmitted reference range : 0.0 - 10.0 /100 WBCs. The refer ence range was not u sed to interpret th is result as normal/abnormal . NRBC x10^3 (test code <0.01 See_Comment [Auto mated = 3887028170) message] The s ystem which generated this result transmitted reference range : 10*3/?L. The reference range was not used to interpret this result as normal/abnormal . GRAN MAT (NEUT) % 62.6 % (test code = 770-8) IMM GRAN % (test code 0.20 % = 3663704263) LYMPH % (test code = 26.9 % 736-9) MONO % (test code = 9.4 % 5905-5) EOS % (test code = 0.6 % 713-8) BASO % (test code = 0.3 % 706-2) GRAN MAT x10^3(ANC) 5.51 10*3/uL 1.88-7.09 (test code = 1026808640) IMM GRAN x10^3 (test <0.03 0-0.06 code = 8132989708) LYMPH x10^3 (test code 2.37 10*3/uL 1.32-3.29 = 731-0) MONO x10^3 (test code 0.83 10*3/uL 0.33-0.92 = 742-7) EOS x10^3 (test code = 0.05 10*3/uL 0.03-0.39 711-2) BASO x10^3 (test code 0.03 10*3/uL 0.01-0.07 = 704-7) Lab Interpretation Abnormal (test code = 00945-5) [facility] HospitalElectroencephalogram (EEG) - Duration of test: 20-60 [id number] 00:00:00Date and Time of Procedure: 02/06/2019, 9:27:48- 9:51:43 REPORT TECHNICAL SUMMARY: The EEG was recorded digitally. Electrodes were applied using the International 10/20 System of electrode placement. Eye movements, respiratory excursions and rhythm strip ECG were monitored on separate channels of the ongoing EEG recording. The occipital dominant rhythm consists of moderate amplitude 9-10 Hz activity. More anteriorly, similar as well as faster frequencies are present, including low amplitude 18-22 Hz ac tivities in the anterior leads. There is independent bitemporal slowing in the 4-7 Hz range intermittently.? Drowsiness and sleep do not reveal any abnormalities. Photic stimulation does not elicit anyabnormalities. Hyperventilation is not employed as activation technique. [...] indicated. SOCORRO SAHU MD Date of interpretation: 02/06/2019[facility]"
--- NOTE | 2022-11-22 06:06 | EDPHYS ---
Physician Documentation [facility] Name: Daniela Medellin Age: 47 yrs Sex: Female : 1975 Arrival Date: 11/22/2022 Time: 05:46 Bed 5 Private MD: ED Physician Binh Domingo HPI: 11/22 06:20 This 47 yrs old Black Female presents to ER via Ambulatory with complaints of Rash. rt 06:20 Patient presents to the ED with 1 week of a rash, on both upper arms spread to her rt trunk. She was placed on a topical antifungal with no relief. She does report itching. She denies other acute complaints at this time. Symptoms are mild in severity, no other aggravating or alleviating factors.. [employer]: 06:01 LMP N/A - Depo-provera aa9 Historical: - Allergies: 06:00 No Known Allergies; aa9 - PMHx: 06:00 Hypertension; Seizures; aa9 - PSHx: 06:00 Appendectomy; Cholecystectomy; aa9 - Immunization history:: Client reports receiving the 2nd dose of the Covid vaccine. - Family history:: not pertinent. ROS: 06:20 Skin: Positive for Urticaria, rash. rt Exam: 06:20 Constitutional: This is a well developed, well nourished patient who is awake, alert, rt and in no acute distress. Head/Face: Normocephalic, atraumatic. Chest/axilla: Normal chest wall appearance and motion. Nontender with no deformity. No lesions are appreciated. Cardiovascular: Regular rate and rhythm with a normal S1 and S2. No gallops, murmurs, or rubs. Normal PMI, no JVD. No pulse deficits. Respiratory: Lungs have equal breath sounds bilaterally, clear to auscultation and percussion. No rales, rhonchi or wheezes noted. No increased work of breathing, no retractions or nasal flaring. Abdomen/GI: Soft, non-tender, with normal bowel sounds. No distension or tympany. No guarding or rebound. No evidence of tenderness throughout. 06:20 Skin: Dry, raised, somewhat erythematous rash noted without warmth to the bilateral arms. Vital Signs: 06:01 Weight 84.82 kg; Height 5 ft. 3 in. ; aa9 06:05 BP 135 / 97; Pulse 89; Temp 97.8(O); Pulse Ox 100% on R/A; aa9 06:01 Body Mass Index 33.13 (84.82 kg, 160.02 cm) aa9 MDM: 05:54 Patient medically screened. rt 06:20 Differential diagnosis: Tinea, urticaria. Data reviewed: vital signs, nurses notes. rt Counseling: I had a detailed discussion with the patient and/or guardian regarding: the historical points, exam findings, and any diagnostic results supporting the discharge/admit diagnosis, the need for outpatient follow up. Administered Medications: No medications were administered Disposition Summary: 11/22/22 06:05 Discharge Ordered Location: Home rt Problem: new rt Symptoms: are unchanged rt Condition: Stable rt Diagnosis - Rash and other nonspecific skin eruption rt Followup: rt - With: Private Physician - When: 2 - 3 days - Reason: Discharge Instructions: - Discharge Summary Sheet rt - Rash, Adult rt Forms: - Work release form aa9 - Medication Reconciliation Form rt - Thank You Letter rt - Antibiotic Education rt - Prescription Opioid Use rt Prescriptions: - Hydroxyzine HCl 25 mg Oral Tablet - take 1 tablet by ORAL route every 6 hours As needed; 15 tablet; Refills: 0, rt Product Selection Permitted - Fluconazole 150 mg Oral Tablet - take 1 tablet by ORAL route once wkly; 4 tablet; Refills: 0, Product Selection rt Permitted - Prednisone 20 mg Oral Tablet - take 2 tablets by ORAL route once daily for 5 days; 10 tablet; Refills: 0, rt Product Selection Permitted Signatures: Lotus Cleveland RN RN aa9 Binh Domingo MD MD rt
--- NOTE | 2022-11-22 06:06 | ER ---
Nurse's Notes [facility] Name: Daniela Medellin Age: 47 yrs Sex: Female : 1975 Arrival Date: 11/22/2022 Time: 05:46 Bed 5 Private MD: Diagnosis: Rash and other nonspecific skin eruption Presentation: 11/22 05:59 Chief complaint: Patient states: I have had this rash on my arm for a week, my doctor aa9 gave me a cream for it but thi morning I woke up and it was on both my arms and going up my neck. I am just so itchy and its like burning now. Coronavirus screen: Vaccine status: Patient reports receiving the 2nd dose of the covid vaccine. Ebola Screen: No symptoms or risks identified at this time. Initial Sepsis Screen: Does the patient meet any 2 criteria? No. Patient's initial sepsis screen is negative. Does the patient have a suspected source of infection? No. Patient's initial sepsis screen is negative. Risk Assessment: Do you want to hurt yourself or someone else? Patient reports no desire to harm self or others. Onset of symptoms was November 22, 2022 at 06:00. Care prior to arrival: Medication(s) given: Benadryl. 05:59 Method Of Arrival: Ambulatory aa9 05:59 Acuity: NORA 4 aa9 Triage Assessment: 06:01 General: Appears uncomfortable, Behavior is cooperative, anxious. Pain: Denies pain. aa9 Neuro: Level of Consciousness is awake, alert, obeys commands, Oriented to person, place, time, situation. Respiratory: Airway is patent Respiratory effort is even, unlabored, Denies shortness of breath. Derm: Rash noted that is itchy, red, raised, on tony arms, neck. 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 - Family history:: not pertinent. Assessment: 06:10 Reassessment: Patient appears in no apparent distress at this time. aa9 Vital Signs: 06:01 Weight 84.82 kg; Height 5 ft. 3 in. ; aa9 06:05 BP 135 / 97; Pulse 89; Temp 97.8(O); Pulse Ox 100% on R/A; aa9 06:01 Body Mass Index 33.13 (84.82 kg, 160.02 cm) aa9 ED Course: 05:47 Patient arrived in ED. [id number] 05:53 Binh Domingo MD is Attending Physician. rt 06:00 Triage completed. aa9 06:01 Arm band placed on. aa9 06:10 Lotus Cleveland, RN is Primary Nurse. aa9 Administered Medications: No medications were administered Outcome: 06:05 Discharge ordered by . rt 06:11 Patient left the ED. aa9 Signatures: Willa Espinoza [email or web address] Lotus Cleveland, RN RN aa9 Binh Domingo MD MD rt
[2022-11-22 06:49] VITALS: BP 135/97; TEMP 97.8; O2SAT 100
== END 2022-11-22 06:11 | disposition home or self-care (01) ==
LOC: ER 05:46
DX: R21 Rash and other nonspecific skin eruption (principal); I10 Essential (primary) hypertension
CPT/HCPCS: 99281